=== PATIENT | male | born 1950 | race Caucasian/White ===

== ENCOUNTER 2019-12-04 09:41 | Outpatient (CLI) | payer MEDICAID, SELFPAY ==
[2019-12-04 10:25] LABS: Basophils % 0.5 %; Eosinophils # 0.2 10^3/uL (0.0-0.8); Eosinophils % 2.7 %; Hematocrit 52.1 % (42.0-52.0); Lymphocytes % 25.7 %; Mean Corpuscular HGB Conc 32.6 g/dL (30.0-36.0); Mean Corpuscular Volume 94.9 fL (80-94); Mean Platelet Volume 9.2 fL (7.4-10.4); Monocytes # 0.7 10^3/uL (0.2-0.9); Monocytes % 9.2 %; Neutrophils # 4.8 10^3/uL (1.8-7.7); Neutrophils % 61.5 %; Nucleated Red Blood Cells % 0 %; Platelet Count 244 10^3/cmm (130-400); Red Blood Count 5.49 10^6/uL (4.1-5.3); Red Cell Distribution Width 12.2 % (12.1-15.1); White Blood Count 7.8 10^3/uL (4.0-10.0)
[2019-12-04 10:39] LABS: Albumin Level 4.5 g/dL (3.5-5.2); Anion Gap 15.6 (5-19); Blood Urea Nitrogen 16 mg/dL (8-23); Calcium 10.2 mg/Dl (8.8-10.2); Carbon Dioxide 27 mmol/L (22-29); Chloride 101 mmol/L (98-107); Glucose 112 mg/dL (74-106); Phosphorus 3.4 mg/dL (2.5-4.5); Potassium 4.6 mmol/L (3.5-5.1); Sodium 139 mmol/L (136-145)
[2019-12-04 13:35] LABS: 25 Hydroxy Vitamin D 53 ng/mL (30-100)
== END 2019-12-04 09:42 | disposition home or self-care (01) ==
LOC: LAB 09:46
PROVIDERS: Family Provider Family Medicine; PCP Family Medicine; Visit Provider Internal Medicine Nephrology
DX: N18.3 Chronic kidney disease, stage 3 (moderate) (principal)
CPT/HCPCS: 36415; 80069; 82306; 85025

== ENCOUNTER → 2019-12-24 09:30 | Outpatient (BNVA) | payer MEDICAID, SELFPAY | PROVIDERS: Family Provider Family Medicine; PCP Family Medicine; Visit Provider Nurse Practitioner Psychiatric/Mental Health | DX: F31.31 Bipolar disorder, current episode depressed, mild (principal); F43.12 Post-traumatic stress disorder, chronic; F10.21 Alcohol dependence, in remission; F12.21 Cannabis dependence, in remission; F17.210 Nicotine dependence, cigarettes, uncomplicated | CPT/HCPCS: 99213 ==

== ENCOUNTER → 2020-04-14 08:10 | Outpatient (BNVA) | payer MEDICAID, SELFPAY | PROVIDERS: Family Provider Family Medicine; PCP Family Medicine; Visit Provider Nurse Practitioner Psychiatric/Mental Health | DX: F31.31 Bipolar disorder, current episode depressed, mild (principal); F43.12 Post-traumatic stress disorder, chronic; F10.21 Alcohol dependence, in remission; F17.210 Nicotine dependence, cigarettes, uncomplicated; F12.21 Cannabis dependence, in remission | CPT/HCPCS: 99213 ==

== ENCOUNTER → 2020-08-04 08:26 | Outpatient (BNVA) | payer MEDICAID, SELFPAY | PROVIDERS: Family Provider Family Medicine; PCP Family Medicine; Visit Provider Nurse Practitioner Psychiatric/Mental Health | DX: F31.31 Bipolar disorder, current episode depressed, mild (principal); F43.12 Post-traumatic stress disorder, chronic; F10.21 Alcohol dependence, in remission; F17.210 Nicotine dependence, cigarettes, uncomplicated; F12.21 Cannabis dependence, in remission; F41.1 Generalized anxiety disorder | CPT/HCPCS: 99214 ==

== ENCOUNTER → 2020-08-05 08:35 | Outpatient (BNVA) | payer MEDICAID, SELFPAY | PROVIDERS: Family Provider Family Medicine; PCP Family Medicine; Visit Provider Nurse Practitioner Psychiatric/Mental Health | DX: Z79.899 Other long term (current) drug therapy (principal) | CPT/HCPCS: 80053; 80061; 83036; 85025 ==

== ENCOUNTER 2020-09-16 11:38 | Outpatient (CLI) | payer MEDICAID, SELFPAY ==
[2020-09-16 12:05] LABS: Basophils # 0.1 10^3/uL (0.0-0.1); Basophils % 0.7 %; Eosinophils # 0.3 10^3/uL (0.0-0.8); Eosinophils % 2.9 %; Hematocrit 52.4 % (42.0-52.0); Hemoglobin 17.4 g/dL (11.7-16.6); Lymphocytes # 2.4 10^3/uL (0.8-4.8); Mean Corpuscular HGB Conc 33.2 g/dL (30.0-36.0); Mean Corpuscular Volume 93.4 fL (80-94); Mean Platelet Volume 9.4 fL (7.4-10.4); Monocytes # 0.8 10^3/uL (0.2-0.9); Monocytes % 8.9 %; Neutrophils # 5.08 10^3/uL (1.8-7.7); Neutrophils % 58.9 %; Nucleated Red Blood Cells % 0 %; Platelet Count 249 10^3/cmm (130-400); Red Blood Count 5.61 10^6/uL (4.1-5.3); Red Cell Distribution Width 12.7 % (12.1-15.1); White Blood Count 8.6 10^3/uL (4.0-10.0)
[2020-09-16 12:30] LABS: Urine Creatinine 125 mg/dL (39-259); Urine Protein Random 6 mg/dL
[2020-09-16 12:34] LABS: UPRO/UCREAT Ratio 0.05 mg/mg CR
== END 2020-09-16 11:39 | disposition home or self-care (01) ==
LOC: LAB 11:40
PROVIDERS: PCP Family Medicine; Visit Provider Internal Medicine Nephrology
DX: N18.30 Chronic kidney disease, stage 3 unspecified (principal)
CPT/HCPCS: 36415; 82570; 84156; 85025

== ENCOUNTER → 2020-10-06 07:46 | Outpatient (BNVA) | payer MEDICAID, SELFPAY | PROVIDERS: PCP Family Medicine; Visit Provider Nurse Practitioner Psychiatric/Mental Health | DX: F31.31 Bipolar disorder, current episode depressed, mild (principal); F43.12 Post-traumatic stress disorder, chronic; F17.210 Nicotine dependence, cigarettes, uncomplicated; F10.21 Alcohol dependence, in remission; F12.21 Cannabis dependence, in remission | CPT/HCPCS: 99213 ==

== ENCOUNTER → 2021-01-03 09:31 | Outpatient (BNVA) | payer MEDICAID, SELFPAY | PROVIDERS: PCP Family Medicine; Visit Provider Nurse Practitioner Psychiatric/Mental Health | DX: F31.31 Bipolar disorder, current episode depressed, mild (principal); F43.12 Post-traumatic stress disorder, chronic; F10.21 Alcohol dependence, in remission; F17.210 Nicotine dependence, cigarettes, uncomplicated; F12.21 Cannabis dependence, in remission | CPT/HCPCS: 99213 ==

== ENCOUNTER → 2021-03-28 08:39 | Outpatient (BNVA) | payer MEDICAID, SELFPAY | PROVIDERS: PCP Family Medicine; Visit Provider Nurse Practitioner Psychiatric/Mental Health | DX: F31.31 Bipolar disorder, current episode depressed, mild (principal); F43.12 Post-traumatic stress disorder, chronic; F17.210 Nicotine dependence, cigarettes, uncomplicated; F10.21 Alcohol dependence, in remission; F12.21 Cannabis dependence, in remission | CPT/HCPCS: 99213 ==

== ENCOUNTER → 2021-06-24 07:12 | Outpatient (BNVA) | payer MEDICAID, SELFPAY | PROVIDERS: PCP Family Medicine; Visit Provider Nurse Practitioner Psychiatric/Mental Health | DX: F31.31 Bipolar disorder, current episode depressed, mild (principal); F43.12 Post-traumatic stress disorder, chronic; F17.210 Nicotine dependence, cigarettes, uncomplicated; F10.21 Alcohol dependence, in remission; F12.21 Cannabis dependence, in remission | CPT/HCPCS: 99213 ==

== ENCOUNTER → 2021-09-15 09:11 | Outpatient (BNVA) | payer MEDICAID, SELFPAY | PROVIDERS: PCP Family Medicine; Visit Provider Nurse Practitioner Psychiatric/Mental Health | DX: F31.31 Bipolar disorder, current episode depressed, mild (principal); F43.12 Post-traumatic stress disorder, chronic; F17.210 Nicotine dependence, cigarettes, uncomplicated; F10.21 Alcohol dependence, in remission; F12.21 Cannabis dependence, in remission | CPT/HCPCS: 99214 ==

== ENCOUNTER → 2021-12-08 07:44 | Outpatient (BNVA) | payer MEDICAID, SELFPAY | PROVIDERS: PCP Family Medicine; Visit Provider Nurse Practitioner Psychiatric/Mental Health | DX: F43.12 Post-traumatic stress disorder, chronic (principal); F31.31 Bipolar disorder, current episode depressed, mild; F17.210 Nicotine dependence, cigarettes, uncomplicated; F10.21 Alcohol dependence, in remission; F12.21 Cannabis dependence, in remission; Z79.899 Other long term (current) drug therapy | CPT/HCPCS: 99214 ==

== ENCOUNTER → 2022-02-01 11:45 | Outpatient (BNVA) | payer MEDICAID, SELFPAY | PROVIDERS: PCP Family Medicine; Visit Provider Nurse Practitioner Psychiatric/Mental Health | DX: Z79.899 Other long term (current) drug therapy (principal) | CPT/HCPCS: 80053; 80061; 83036; 85025 ==

== ENCOUNTER → 2022-02-02 07:28 | Outpatient (BNVA) | payer MEDICAID, SELFPAY | PROVIDERS: PCP Family Medicine; Visit Provider Nurse Practitioner Psychiatric/Mental Health | DX: F31.31 Bipolar disorder, current episode depressed, mild (principal); F43.12 Post-traumatic stress disorder, chronic; F17.210 Nicotine dependence, cigarettes, uncomplicated; F10.21 Alcohol dependence, in remission; F12.21 Cannabis dependence, in remission; Z79.899 Other long term (current) drug therapy | CPT/HCPCS: 99214 ==

== ENCOUNTER 2022-05-23 06:34 | Outpatient (CLI) | payer MEDICAID, SELFPAY ==
--- NOTE | 2022-05-23 07:19 | CT_ITS ---
WS: [id number] LDCT LUNG CANCER SCREENING HISTORY: NICOTINE Dependence, cigarettes TECHNIQUE: Axial imaging performed from the apices to 1 cm below the costophrenic angles. Coronal and sagittal reformats are submitted with axial MIP series. All CT scans at [facility] use at least one of these dose optimization techniques: automated exposure control; mA and/or kV adjustment per patient size (includes targeted exams where dose is matched to clinical indication); or iterativ e reconstruction. DLP: 66.72 mGy.cm DIvol: Mean CTDIvol: 1.60 (mGy) COMPARISON: 08/01/2019 Diagnostic quality: Satisfactory Lung Nodules: No nodules or masses are identified. No endobronchial lesions. Lungs: Chronic emphysematous changes. Diffuse mild to moderate interstitial thickening. There is mild central bronchial wall thickening. Areas of atelectasis in the lingula and RIGHT middle lobe may be chronic. Heart: Normal size heart. Coronary artery calcifications are mild. Other findings: Normal-sized thoracic aorta. Normal size pulmonary artery. Prior cholecystectomy. Mil d LEFT adrenal hyperplasia. Hyperplasia LEFT adrenal gland are incompletely visualized but similar fi ndings were noted on a prior CT from 2019. Remote 1rib fractures. CT/CT lung screening [id number] IMPRESSION: LUNG-RADS: 1-Negative FOLLOW UP: 12 Month: Continue annual screening with LDCT OTHER FINDINGS (S MODIFIER): None.
== END 2022-05-23 06:35 | disposition home or self-care (01) ==
LOC: RAD 06:36
PROVIDERS: PCP Family Medicine; Visit Provider Family Medicine
DX: Z12.2 Encounter for screening for malignant neoplasm of respiratory organs (principal); F17.210 Nicotine dependence, cigarettes, uncomplicated
CPT/HCPCS: 71271

== ENCOUNTER → 2023-05-11 13:44 | Outpatient (BNVA) | payer MEDICAID, SELFPAY | PROVIDERS: PCP Family Medicine; Visit Provider Nurse Practitioner Psychiatric/Mental Health | DX: Z03.89 Encounter for observation for other suspected diseases and conditions ruled out (principal); F31.31 Bipolar disorder, current episode depressed, mild; F43.12 Post-traumatic stress disorder, chronic; Z79.899 Other long term (current) drug therapy | CPT/HCPCS: 80053; 80061; 80307; 81001; 83036 ==

== ENCOUNTER 2023-06-24 16:17 | Emergency (ER) | payer MEDICAID, SELFPAY ==
[2023-06-24 16:22] VITALS: BMI 40.6
--- NOTE | 2023-06-24 16:27 | ED_ITS ---
Documented by User: Burke Reilly MD 07/07/23 15:45 HPI - Altered Mental Status General: Chief Complaint: Altered Mental Status Stated Complaint: etoh, HI Time Seen by Provider: 06/24/23 16:27 Limitations: altered mental status History of Present Illness: Mr. Combs is a 73-year-old gentleman with likely psychiatric history presenting to the emergency department for various concerns. He endorses alcohol and appears quite clinically intoxicated consistent with alcohol which severely limits history. EMS was called for altered mental status. Also reports 2 days of strokelike symptoms and homicidal ideation. Patient mildly hypoglycemic initially however improved with EMS treatments. Patient is not particularly cooperative and not pleasant at this time. Review of Systems General: Reports: ROS unobtainable due to mental status PFSH ED PFSH: Medical History Alcohol use disorder, moderate, in sustained remission Bipolar 1 disorder, depressed, mild Cannabis dependence in remission Chronic post-traumatic stress disorder Heavy cigarette smoker Psychiatric care Family History (Updated 06/25/23 @ 13:47 by Juan Ingram MD) Other Cancer Social History (Updated 06/25/23 @ 13:47 by Juan Ingram MD) Smoking and tobacco status: current every day smoker Alcohol intake: current Physical Exam Const: COMMON NORMALS: alert GENERAL APPEARANCE: well developed and disheveled; not cooperative HENMT: COMMON NORMALS: normocephalic and atraumatic HEAD & SCALP: normocephalic and atraumatic THROAT: posterior oropharynx normal Eye: COMMON NORMALS: conjunctivae normal CONJUNCTIVA: Yes conjunctivae normal SCLERA: sclerae normal Neck/C-Spine: COMMON NORMALS: supple GENERAL: Yes trachea midline Resp: COMMON NORMALS: clear to auscultation bilaterally EFFORT & INSPECTION: Yes able to speak in complete sentences AUSCULTATION: clear to auscultation bilaterally Cardio: COMMON NORMALS: regular rate and regular rhythm RATE: regular rate RHYTHM: regular rhythm GI: COMMON NORMALS: Soft to palpation PALPATION: Yes Soft to palpation and No Tenderness to palpation present (GI) Extremity: GENERAL: Yes normal exam except as noted and No edema Neuro: COMMON NORMALS: moves all extremities SENSORIUM/ORIENTATION: Yes alert, Yes Orientation impaired and Yes fluctuating sensorium Psych: THOUGHT CONTENT: Yes Homicidality present Course Vital Signs: Vital signs: Vital Signs Temperature 98.2 F 06/24/23 16:34 Pulse Rate 98 06/25/23 15:02 Respiratory Rate 16 06/25/23 08:00 Blood Pressure 151/97 06/25/23 12:00 Pulse Oximetry 93 06/25/23 15:02 Oxygen Delivery Me thod Room Air 06/25/23 12:00 MDM - Altered Mental Status Medical Decision Making 73-year-old gentleman with reported alcohol abuse presenting for homicidal ideation. Patient is quite clinically intoxicated on initial exam and not particularly cooperative. Patient requires evaluation for further delineation of current state and hence medication to facilitate this was ordered. EKG demonstrates sinus rhythm with left axis deviation, normal intervals, nonspecific ST segment abnormalities. No STEMI. Labs with no leukocytosis, normal hemoglobin and platelet count. Metabolic panel with likely results of alcohol intoxication. No acute electrolyte derangement. Patient does have elevation in transaminases and T. bili. These are also likely secondary to alcohol abuse however further etiologies are considered. No UTI. Toxic ingestions are negative with exception of ethyl alcohol elevation. UDS negative. Hepatitis panel negative. CT head negative for evidence of acute or recent infarct, no hemorrhage or mass. Chest x-ray with no lobar consolidation or pneumothorax. Gallbladder ultrasound limited by body habitus. On reassessment with mild improvement in mental status patient does not have right upper quadrant tenderness palpation. Negative Cox sign. Patient given banana bag in addition to medications. Despite improving clinical intoxication he continues to verbalize threats to staff and his . Therefore he is placed on a 96-hour hold. He is still quite clinically intoxicated as well as clinically intoxicated even being generous for metabolic rate. Handed off to overnight ED physician Dr. Mittal pending serial reassessment and likely psychiatry consult versus placement when clinically sober. Medical Records I reviewed the patient's medical records. Lab Data I reviewed the patient's lab results. 06/24/23 16:35 06/25/23 13:23 Radiology Impressions Chest X-Ray 06/24/23 16:31 IMPRESSION: 1. Basilar atelectasis 2. Possible small pleural effusions. Gallbladder Ultrasound 06/24/23 17:33 IMPRESSION: 1. Limited exam secondary to patient body habitus 2. Fatty liver Head CT 06/24/23 17:45 IMPRESSION: No acute intracranial finding. No significant change from 08/01/2019 Laboratory Results WBC 6.8 10^3/uL (4.0-10.0) 06/24/23 16:35 RBC 4.80 10^6/uL (4.1-5.3) 06/24/23 16:35 Hgb 16.0 g/dL (11.7-16.6) 06/24/23 16:35 Hct 45.5 % (42.0-52.0) 06/24/23 16:35 MCV 94.8 fl (80-94) H 06/24/23 16:35 MCH 33.3 pg (28.0-34.0) 06/24/23 16:35 MCHC 35.2 g/dL (30.0-36.0) 06/24/23 16:35 RDW 16.3 % (12.1-15.1) H 06/24/23 16:35 Plt Count 220 10^3/cmm (130-400) 06/24/23 16:35 MPV 9.6 fL (7.4-10.4) 06/24/23 16:35 Neut % (Auto) 58.1 % 06/24/23 16:35 Lymph % (Auto) 28.4 % 06/24/23 16:35 Nobles % (Auto) 10.2 % 06/24/23 16:35 Eos % (Auto) 1.8 % 06/24/23 16:35 Baso % (Auto) 0.6 % 06/24/23 16:35 Neut # (Auto) 3.92 10^3/uL (1.8-7.7) 06/24/23 16:35 Lymph # (Auto) 1.9 10^3/uL (0.8-4.8) 06/24/23 16:35 Nobles # (Auto) 0.7 10^3/uL (0.2-0.9) 06/24/23 16:35 Eos # (Auto) 0.1 10^3/uL (0.0-0.8) 06/24/23 16:35 Baso # (Auto) 0.0 10^3/uL (0.0-0.1) 06/24/23 16:35 Nucleated RBC % (auto) 0.3 % 06/24/23 16:35 Nucleated RBCs # 0.0 /100WBC 06/24/23 16:35 Sodium 137 mmol/L (136-145) 06/25/23 13:23 Potassium 3.9 mmol/L (3.5-5.1) 06/25/23 13:23 Chloride 99 mmol/L (98-107) 06/25/23 13:23 Carbon Dioxide 17 mmol/L (22-29) L 06/25/23 13:23 Anion Gap 24.9 (5-19) H 06/25/23 13:23 BUN 12 mg/dL (8-23) 06/25/23 13:23 Creatinine 1.2 mg/dL (0.7-1.2) 06/25/23 13:23 GFR Calculation Not Reportable 06/25/23 13:23 Glucose 107 mg/dL (65-115) 06/25/23 13:23 Calculated Osmolality 284 mOsm/kg (285-295) L 06/25/23 13:23 Calcium 7.8 mg/dL (8.5-10.5) L 06/25/23 13:23 Total Bilirubin 2.9 mg/dL (0.15-1.2) H 06/25/23 13:23 AST 234 U/L (0-40) H 06/25/23 13:23 ALT 147 U/L (0-41) H 06/25/23 13:23 Alkaline Phosphatase 123 U/L (40-130) 06/25/23 13:23 Total Protein 5.7 g/dL (6.6-8.7) L 06/25/23 13:23 Albumin 3.2 g/dL (3.5-5.2) L 06/25/23 13:23 Globulin 2.5 g/dL (1.3-4.6) 06/25/23 13:23 Lipase 84 U/L (13-60) H 06/24/23 16:35 TSH 0.95 uIU/mL (0.27-4.20) 06/24/23 16:35 Urine Color Yellow (Yellow) 06/24/23 21:15 Urine Appearance Clear (CLEAR) 06/24/23 21:15 Urine pH 5 (5-7) 06/24/23 21:15 Ur Specific [place] 1.020 (1.005-1.030) 06/24/23 21:15 Urine Protein Neg (Negative) 06/24/23 21:15 Urine Glucose (UA) Norm (Normal) 06/24/23 21:15 Urine Ketones 2+ (Negative) H 06/24/23 21:15 Urine Blood Neg (Negative) 06/24/23 21:15 Urine Nitrate Negative (Negative) 06/24/23 21:15 Urine Bilirubin Neg (Negative) 06/24/23 21:15 Urine Urobilinogen 1 mg/dL (Negative) H 06/24/23 21:15 Ur Leukocyte Esterase Negative (Negative) 06/24/23 21:15 Salicylates < 0.3 mg/dL (3-10) L 06/24/23 16:35 Urine Opiates Screen Negative ng/mL (Negative) 06/24/23 21:15 Acetaminophen < 5.0 ug/mL (10-30) L 06/24/23 16:35 Ur Barbiturates Screen Negative ng/mL (Negative) 06/24/23 21:15 Ur Phencyclidine Scrn Negative ng/mL (Negative) 06/24/23 21:15 Ur Amphetamines Screen Negative ng/mL (Negative) 06/24/23 21:15 U Benzodiazepines Scrn Negative ng/mL (Negative) 06/24/23 21:15 Urine Cocaine Screen Negative ng/mL (Negative) 06/24/23 21:15 U Marijuana (THC) Screen Negative ng/mL (Negative) 06/24/23 21:15 Ethyl Alcohol 67 mg/dL (0-10) H 06/25/23 05:27 Hepatitis A IgM Ab Non-reactive (Nonreactive) 06/24/23 16:35 Hep Bs Antigen Non-reactive (Nonreactive) 06/24/23 16:35 Hep B Core IgM Ab Non-reactive (Nonreactive) 06/24/23 16:35 Hepatitis C Antibody Non-reactive (Nonreactive) 06/24/23 16:35 Discharge Plan Discharge Patient Disposition: Home Clinical Impression: Altered mental status, Alcoholic intoxication Condition: Stable Prescriptions: No Action trazodone 50 mg tablet 50 mg PO DIRECTED PRN (Reason: sleep) Qty: 30 3RF Rx Instructions: May take one tablet 30-60 min prior to bedtime as needed for sleep quetiapine [Seroquel] 50 mg tablet 75 mg PO BEDTIME Qty: 45 3RF Rx Instructions: Take one and half tablet at bedtime, total dose 75 mg bupropion HCl [Wellbutrin SR] 200 mg tablet sustained-release 12 hr 200 mg PO QAM Qty: 30 3RF Rx Instructions: Take one tablet every morning metoprolol tartrate 50 mg tablet 50 mg PO BID clonazepam [Klonopin] 0.5 mg tablet 0.5 mg PO BID Qty: 60 1RF Rx Instructions: Take one tablet in morning and afternoon quetiapine 100 mg tablet 100 mg PO BEDTIME trazodone 300 mg tablet See Rx Instructions .ROUTE .COMPLEX Rx Instructions: TAKE 1 TABLET BY MOUTH 30-60 MINUTES PRIOR TO BEDTIME NEEDED. Klonopin 1 mg tablet 1 mg PO BEDTIME Rx Instructions: Take one tablet at bedtime Discharge Orders: Discharge ED (Routine); Ordered 06/25/23 Ordered By: Juan Ingram Referrals: Marlena Nolan MD [Primary Care Provider] - 1-3 days Discharge Diet: Regular Discharge Activity: Increase activity as tolerated Patient Instructions: Alcohol Intoxication (ED), Altered Mental Status (ED), Opioid Safety, Pain Management Activity Restrictions/Additional Instructions: Encourage fluids Avoid alcohol and tobacco Follow-up with your primary care provider this week Sign Out Sign Out Data: Patient Sign Out occurred on 06/25/23 at 06:37. Patient's care was discussed, and care was transferred from to Ahsan Mosqueda DO. Coding Level of Care Code ED Bottling Room Worker for Chg Fwd Documented by User: Fransisco Mittal DO 06/25/23 06:07 HPI - Altered Mental Status General: Chief Complaint: Altered Mental Status Stated Complaint: etoh, HI Time Seen by Provider: 06/24/23 16:27 PFSH ED PFSH: Medical History Alcohol use disorder, moderate, in sustained remission Bipolar 1 disorder, depressed, mild Cannabis dependence in remission Chronic post-traumatic stress disorder Heavy cigarette smoker Psychiatric care Family History (Updated 06/25/23 @ 13:47 by Juan Ingram MD) Other Cancer Social History (Updated 06/25/23 @ 13:47 by Juan Ingram MD) Smoking and tobacco status: current every day smoker Alcohol intake: current Course 2 Vital Signs: Vital signs: Vital Signs Temperature 98.2 F 06/24/23 16:34 Pulse Rate 98 06/25/23 15:02 Respiratory Rate 16 06/25/23 08:00 Blood Pressure 151/97 06/25/23 12:00 Pulse Oximetry 93 06/25/23 15:02 Oxygen Delivery Me thod Room Air 06/25/23 12:00 MDM - Altered Mental Status Medical Decision Making 73-year-old gentleman with reported alcohol abuse presenting for homicidal ideation. Patient is quite clinically intoxicated on initial exam and not particularly cooperative. Patient requires evaluation for further delineation of current state and hence medication to facilitate this was ordered. EKG demonstrates sinus rhythm with left axis deviation, normal intervals, nonspecific ST segment abnormalities. No STEMI. Labs with no leukocytosis, normal hemoglobin and platelet count. Metabolic panel with likely results of alcohol intoxication. No acute electrolyte derangement. Patient does have elevation in transaminases and T. bili. These are also likely secondary to alcohol abuse however further etiologies are considered. No UTI. Toxic ingestions are negative with exception of ethyl alcohol elevation. UDS negative. Hepatitis panel negative. CT head negative for evidence of acute or recent infarct, no hemorrhage or mass. Chest x-ray with no lobar consolidation or pneumothorax. Gallbladder ultrasound limited by body habitus. On reassessment with mild improvement in mental status patient does not have right upper quadrant tenderness palpation. Negative Cox sign. Patient given banana bag in addition to medications. Despite improving clinical intoxication he continues to verbalize threats to staff and his . Therefore he is placed on a 96-hour hold. He is still quite clinically intoxicated as well as clinically intoxicated even being generous for metabolic rate. Handed off to overnight ED physician Dr. Mittal pending serial reassessment and likely psychiatry consult versus placement when clinically sober. 06/25/2023 @ 0602: Received in checkout from the previous physician at shift change. This patient is now awake. He states that he does not really remember the previous day. He in fact does not wish to kill his at this point. Repeat alcohol level and repeat CMP are pending. Will await results, and likely have psychiatry evaluate later this morning. Checked out at shift change. Lab Data 06/24/23 16:35 06/25/23 13:23 Radiology Impressions Chest X-Ray 06/24/23 16:31 IMPRESSION: 1. Basilar atelectasis 2. Possible small pleural effusions. Gallbladder Ultrasound 06/24/23 17:33 IMPRESSION: 1. Limited exam secondary to patient body habitus 2. Fatty liver Head CT 06/24/23 17:45 IMPRESSION: No acute intracranial finding. No significant change from 08/01/2019 Laboratory Results WBC 6.8 10^3/uL (4.0-10.0) 06/24/23 16:35 RBC 4.80 10^6/uL (4.1-5.3) 06/24/23 16:35 Hgb 16.0 g/dL (11.7-16.6) 06/24/23 16:35 Hct 45.5 % (42.0-52.0) 06/24/23 16:35 MCV 94.8 fl (80-94) H 06/24/23 16:35 MCH 33.3 pg (28.0-34.0) 06/24/23 16:35 MCHC 35.2 g/dL (30.0-36.0) 06/24/23 16:35 RDW 16.3 % (12.1-15.1) H 06/24/23 16:35 Plt Count 220 10^3/cmm (130-400) 06/24/23 16:35 MPV 9.6 fL (7.4-10.4) 06/24/23 16:35 Neut % (Auto) 58.1 % 06/24/23 16:35 Lymph % (Auto) 28.4 % 06/24/23 16:35 Nobles % (Auto) 10.2 % 06/24/23 16:35 Eos % (Auto) 1.8 % 06/24/23 16:35 Baso % (Auto) 0.6 % 06/24/23 16:35 Neut # (Auto) 3.92 10^3/uL (1.8-7.7) 06/24/23 16:35 Lymph # (Auto) 1.9 10^3/uL (0.8-4.8) 06/24/23 16:35 Nobles # (Auto) 0.7 10^3/uL (0.2-0.9) 06/24/23 16:35 Eos # (Auto) 0.1 10^3/uL (0.0-0.8) 06/24/23 16:35 Baso # (Auto) 0.0 10^3/uL (0.0-0.1) 06/24/23 16:35 Nucleated RBC % (auto) 0.3 % 06/24/23 16:35 Nucleated RBCs # 0.0 /100WBC 06/24/23 16:35 Sodium 137 mmol/L (136-145) 06/25/23 13:23 Potassium 3.9 mmol/L (3.5-5.1) 06/25/23 13:23 Chloride 99 mmol/L (98-107) 06/25/23 13:23 Carbon Dioxide 17 mmol/L (22-29) L 06/25/23 13:23 Anion Gap 24.9 (5-19) H 06/25/23 13:23 BUN 12 mg/dL (8-23) 06/25/23 13:23 Creatinine 1.2 mg/dL (0.7-1.2) 06/25/23 13:23 GFR Calculation Not Reportable 06/25/23 13:23 Glucose 107 mg/dL (65-115) 06/25/23 13:23 Calculated Osmolality 284 mOsm/kg (285-295) L 06/25/23 13:23 Calcium 7.8 mg/dL (8.5-10.5) L 06/25/23 13:23 Total Bilirubin 2.9 mg/dL (0.15-1.2) H 06/25/23 13:23 AST 234 U/L (0-40) H 06/25/23 13:23 ALT 147 U/L (0-41) H 06/25/23 13:23 Alkaline Phosphatase 123 U/L (40-130) 06/25/23 13:23 Total Protein 5.7 g/dL (6.6-8.7) L 06/25/23 13:23 Albumin 3.2 g/dL (3.5-5.2) L 06/25/23 13:23 Globulin 2.5 g/dL (1.3-4.6) 06/25/23 13:23 Lipase 84 U/L (13-60) H 06/24/23 16:35 TSH 0.95 uIU/mL (0.27-4.20) 06/24/23 16:35 Urine Color Yellow (Yellow) 06/24/23 21:15 Urine Appearance Clear (CLEAR) 06/24/23 21:15 Urine pH 5 (5-7) 06/24/23 21:15 Ur Specific [place] 1.020 (1.005-1.030) 06/24/23 21:15 Urine Protein Neg (Negative) 06/24/23 21:15 Urine Glucose (UA) Norm (Normal) 06/24/23 21:15 Urine Ketones 2+ (Negative) H 06/24/23 21:15 Urine Blood Neg (Negative) 06/24/23 21:15 Urine Nitrate Negative (Negative) 06/24/23 21:15 Urine Bilirubin Neg (Negative) 06/24/23 21:15 Urine Urobilinogen 1 mg/dL (Negative) H 06/24/23 21:15 Ur Leukocyte Esterase Negative (Negative) 06/24/23 21:15 Salicylates < 0.3 mg/dL (3-10) L 06/24/23 16:35 Urine Opiates Screen Negative ng/mL (Negative) 06/24/23 21:15 Acetaminophen < 5.0 ug/mL (10-30) L 06/24/23 16:35 Ur Barbiturates Screen Negative ng/mL (Negative) 06/24/23 21:15 Ur Phencyclidine Scrn Negative ng/mL (Negative) 06/24/23 21:15 Ur Amphetamines Screen Negative ng/mL (Negative) 06/24/23 21:15 U Benzodiazepines Scrn Negative ng/mL (Negative) 06/24/23 21:15 Urine Cocaine Screen Negative ng/mL (Negative) 06/24/23 21:15 U Marijuana (THC) Screen Negative ng/mL (Negative) 06/24/23 21:15 Ethyl Alcohol 67 mg/dL (0-10) H 06/25/23 05:27 Hepatitis A IgM Ab Non-reactive (Nonreactive) 06/24/23 16:35 Hep Bs Antigen Non-reactive (Nonreactive) 06/24/23 16:35 Hep B Core IgM Ab Non-reactive (Nonreactive) 06/24/23 16:35 Hepatitis C Antibody Non-reactive (Nonreactive) 06/24/23 16:35 Discharge Plan Discharge Patient Disposition: Home Clinical Impression: Altered mental status, Alcoholic intoxication Condition: Stable Prescriptions: No Action trazodone 50 mg tablet 50 mg PO DIRECTED PRN (Reason: sleep) Qty: 30 3RF Rx Instructions: May take one tablet 30-60 min prior to bedtime as needed for sleep quetiapine [Seroquel] 50 mg tablet 75 mg PO BEDTIME Qty: 45 3RF Rx Instructions: Take one and half tablet at bedtime, total dose 75 mg bupropion HCl [Wellbutrin SR] 200 mg tablet sustained-release 12 hr 200 mg PO QAM Qty: 30 3RF Rx Instructions: Take one tablet every morning metoprolol tartrate 50 mg tablet 50 mg PO BID clonazepam [Klonopin] 0.5 mg tablet 0.5 mg PO BID Qty: 60 1RF Rx Instructions: Take one tablet in morning and afternoon quetiapine 100 mg tablet 100 mg PO BEDTIME trazodone 300 mg tablet See Rx Instructions .ROUTE .COMPLEX Rx Instructions: TAKE 1 TABLET BY MOUTH 30-60 MINUTES PRIOR TO BEDTIME NEEDED. Klonopin 1 mg tablet 1 mg PO BEDTIME Rx Instructions: Take one tablet at bedtime Discharge Orders: Discharge ED (Routine); Ordered 06/25/23 Ordered By: Juan Ingram Referrals: Marlena Nolan MD [Primary Care Provider] - 1-3 days Discharge Diet: Regular Discharge Activity: Increase activity as tolerated Patient Instructions: Alcohol Intoxication (ED), Altered Mental Status (ED), Opioid Safety, Pain Management Activity Restrictions/Additional Instructions: Encourage fluids Avoid alcohol and tobacco Follow-up with your primary care provider this week Sign Out Sign Out Data: Patient Sign Out occurred on 06/25/23 at 06:37. Patient's care was discussed, and care was transferred from to Ahsan Mosqueda DO. Coding Level of Care Code ED Bottling Room Worker for Alec Carranza Documented by User: Ahsan Mosqueda DO 06/26/23 07:05 HPI - Altered Mental Status General: Chief Complaint: Altered Mental Status Stated Complaint: etoh, HI Time Seen by Provider: 06/24/23 16:27 PFSH ED PFSH: Medical History Alcohol use disorder, moderate, in sustained remission Bipolar 1 disorder, depressed, mild Cannabis dependence in remission Chronic post-traumatic stress disorder Heavy cigarette smoker Psychiatric care Family History (Updated 06/25/23 @ 13:47 by Juan Ingram MD) Other Cancer Social History (Updated 06/25/23 @ 13:47 by Juan Ingram MD) Smoking and tobacco status: current every day smoker Alcohol intake: current Course Vital Signs: Vital signs: Vital Signs Temperature 98.2 F 06/24/23 16:34 Pulse Rate 98 06/25/23 15:02 Respiratory Rate 16 06/25/23 08:00 Blood Pressure 151/97 06/25/23 12:00 Pulse Oximetry 93 06/25/23 15:02 Oxygen Delivery Me thod Room Air 06/25/23 12:00 MDM - Altered Mental Status Medical Decision Making 73-year-old gentleman with reported alcohol abuse presenting for homicidal ideation. Patient is quite clinically intoxicated on initial exam and not particularly cooperative. Patient requires evaluation for further delineation of current state and hence medication to facilitate this was ordered. EKG demonstrates sinus rhythm with left axis deviation, normal intervals, nonspecific ST segment abnormalities. No STEMI. Labs with no leukocytosis, normal hemoglobin and platelet count. Metabolic panel with likely results of alcohol intoxication. No acute electrolyte derangement. Patient does have elevation in transaminases and T. bili. These are also likely secondary to alcohol abuse however further etiologies are considered. No UTI. Toxic ingestions are negative with exception of ethyl alcohol elevation. UDS negative. Hepatitis panel negative. CT head negative for evidence of acute or recent infarct, no hemorrhage or mass. Chest x-ray with no lobar consolidation or pneumothorax. Gallbladder ultrasound limited by body habitus. On reassessment with mild improvement in mental status patient does not have right upper quadrant tenderness palpation. Negative Cox sign. Patient given banana bag in addition to medications. Despite improving clinical intoxication he continues to verbalize threats to staff and his . Therefore he is placed on a 96-hour hold. He is still quite clinically intoxicated as well as clinically intoxicated even being generous for metabolic rate. Handed off to overnight ED physician Dr. Mittal pending serial reassessment and likely psychiatry consult versus placement when clinically sober. 06/25/2023 @ 0602: Received in checkout from the previous physician at shift change. This patient is now awake. He states that he does not really remember the previous day. He in fact does not wish to kill his at this point. Repeat alcohol level and repeat CMP are pending. Will await results, and likely have psychiatry evaluate later this morning. Checked out at shift change. 06/25/2023 @ 0630: Care assumed from Dr. Mittal at change of shift. Reviewed the chart. Patient has elevated anion gap he was given another liter of fluids and the time to BMP was drawn a little over an hour later there is actually slight increases in anion gap. He is now sober blood alcohol is less than 80. Patient does not recall threatening his or any of the events from yesterday he is awake and alert he denies any suicidal or homicidal ideation. Several psychiatry facilities have declined to take him on transfer. Since he is now retracting his statements and is statements only seem to have been associated with his intoxication we have asked Dr. Downing to see him again through with similar 96-hour hold. Initially was concerned about his persistent anion gap and discussed with hospitalist admitting him. He is not showing any signs of withdrawal at this point. We repeated more fluids his anion gap persisted Dr. Downing in the meantime had seen the patient and rescinded the 96-hour hold he concurred with our assessment that this was simply related to his alcohol use. At that point patient I contacted his he wanted to go home which she was helping him make arrangements to get a ride home. Dr. Bowman had seen the patient and felt that since the 96-hour was withdrawn and the patient wanted to go home we could not keep him here any longer I concur. Patient was given more fluids and encouraged to follow-up for his substance abuse issues. He will be discharged home return if he has further problems. Lab Data 06/24/23 16:35 06/25/23 13:23 Radiology Impressions Chest X-Ray 06/24/23 16:31 IMPRESSION: 1. Basilar atelectasis 2. Possible small pleural effusions. Gallbladder Ultrasound 06/24/23 17:33 IMPRESSION: 1. Limited exam secondary to patient body habitus 2. Fatty liver Head CT 06/24/23 17:45 IMPRESSION: No acute intracranial finding. No significant change from 08/01/2019 Laboratory Results WBC 6.8 10^3/uL (4.0-10.0) 06/24/23 16:35 RBC 4.80 10^6/uL (4.1-5.3) 06/24/23 16:35 Hgb 16.0 g/dL (11.7-16.6) 06/24/23 16:35 Hct 45.5 % (42.0-52.0) 06/24/23 16:35 MCV 94.8 fl (80-94) H 06/24/23 16:35 MCH 33.3 pg (28.0-34.0) 06/24/23 16:35 MCHC 35.2 g/dL (30.0-36.0) 06/24/23 16:35 RDW 16.3 % (12.1-15.1) H 06/24/23 16:35 Plt Count 220 10^3/cmm (130-400) 06/24/23 16:35 MPV 9.6 fL (7.4-10.4) 06/24/23 16:35 Neut % (Auto) 58.1 % 06/24/23 16:35 Lymph % (Auto) 28.4 % 06/24/23 16:35 Nobles % (Auto) 10.2 % 06/24/23 16:35 Eos % (Auto) 1.8 % 06/24/23 16:35 Baso % (Auto) 0.6 % 06/24/23 16:35 Neut # (Auto) 3.92 10^3/uL (1.8-7.7) 06/24/23 16:35 Lymph # (Auto) 1.9 10^3/uL (0.8-4.8) 06/24/23 16:35 [place] # (Auto) 0.7 10^3/uL (0.2-0.9) 06/24/23 16:35 Eos # (Auto) 0.1 10^3/uL (0.0-0.8) 06/24/23 16:35 Baso # (Auto) 0.0 10^3/uL (0.0-0.1) 06/24/23 16:35 Nucleated RBC % (auto) 0.3 % 06/24/23 16:35 Nucleated RBCs # 0.0 /100WBC 06/24/23 16:35 Sodium 137 mmol/L (136-145) 06/25/23 13:23 Potassium 3.9 mmol/L (3.5-5.1) 06/25/23 13:23 Chloride 99 mmol/L (98-107) 06/25/23 13:23 Carbon Dioxide 17 mmol/L (22-29) L 06/25/23 13:23 Anion Gap 24.9 (5-19) H 06/25/23 13:23 BUN 12 mg/dL (8-23) 06/25/23 13:23 Creatinine 1.2 mg/dL (0.7-1.2) 06/25/23 13:23 GFR Calculation Not Reportable 06/25/23 13:23 Glucose 107 mg/dL (65-115) 06/25/23 13:23 Calculated Osmolality 284 mOsm/kg (285-295) L 06/25/23 13:23 Calcium 7.8 mg/dL (8.5-10.5) L 06/25/23 13:23 Total Bilirubin 2.9 mg/dL (0.15-1.2) H 06/25/23 13:23 AST 234 U/L (0-40) H 06/25/23 13:23 ALT 147 U/L (0-41) H 06/25/23 13:23 Alkaline Phosphatase 123 U/L (40-130) 06/25/23 13:23 Total Protein 5.7 g/dL (6.6-8.7) L 06/25/23 13:23 Albumin 3.2 g/dL (3.5-5.2) L 06/25/23 13:23 Globulin 2.5 g/dL (1.3-4.6) 06/25/23 13:23 Lipase 84 U/L (13-60) H 06/24/23 16:35 TSH 0.95 uIU/mL (0.27-4.20) 06/24/23 16:35 Urine Color Yellow (Yellow) 06/24/23 21:15 Urine Appearance Clear (CLEAR) 06/24/23 21:15 Urine pH 5 (5-7) 06/24/23 21:15 Ur Specific [place] 1.020 (1.005-1.030) 06/24/23 21:15 Urine Protein Neg (Negative) 06/24/23 21:15 Urine Glucose (UA) Norm (Normal) 06/24/23 21:15 Urine Ketones 2+ (Negative) H 06/24/23 21:15 Urine Blood Neg (Negative) 06/24/23 21:15 Urine Nitrate Negative (Negative) 06/24/23 21:15 Urine Bilirubin Neg (Negative) 06/24/23 21:15 Urine Urobilinogen 1 mg/dL (Negative) H 06/24/23 21:15 Ur Leukocyte Esterase Negative (Negative) 06/24/23 21:15 Salicylates < 0.3 mg/dL (3-10) L 06/24/23 16:35 Urine Opiates Screen Negative ng/mL (Negative) 06/24/23 21:15 Acetaminophen < 5.0 ug/mL (10-30) L 06/24/23 16:35 Ur Barbiturates Screen Negative ng/mL (Negative) 06/24/23 21:15 Ur Phencyclidine Scrn Negative ng/mL (Negative) 06/24/23 21:15 Ur Amphetamines Screen Negative ng/mL (Negative) 06/24/23 21:15 U Benzodiazepines Scrn Negative ng/mL (Negative) 06/24/23 21:15 Urine Cocaine Screen Negative ng/mL (Negative) 06/24/23 21:15 U Marijuana (THC) Screen Negative ng/mL (Negative) 06/24/23 21:15 Ethyl Alcohol 67 mg/dL (0-10) H 06/25/23 05:27 Hepatitis A IgM Ab Non-reactive (Nonreactive) 06/24/23 16:35 Hep Bs Antigen Non-reactive (Nonreactive) 06/24/23 16:35 Hep B Core IgM Ab Non-reactive (Nonreactive) 06/24/23 16:35 Hepatitis C Antibody Non-reactive (Nonreactive) 06/24/23 16:35 Discharge Plan Discharge Patient Disposition: Home Clinical Impression: Altered mental status, Alcoholic intoxication Condition: Stable Prescriptions: No Action trazodone 50 mg tablet 50 mg PO DIRECTED PRN (Reason: sleep) Qty: 30 3RF Rx Instructions: May take one tablet 30-60 min prior to bedtime as needed for sleep quetiapine [Seroquel] 50 mg tablet 75 mg PO BEDTIME Qty: 45 3RF Rx Instructions: Take one and half tablet at bedtime, total dose 75 mg bupropion HCl [Wellbutrin SR] 200 mg tablet sustained-release 12 hr 200 mg PO QAM Qty: 30 3RF Rx Instructions: Take one tablet every morning metoprolol tartrate 50 mg tablet 50 mg PO BID clonazepam [Klonopin] 0.5 mg tablet 0.5 mg PO BID Qty: 60 1RF Rx Instructions: Take one tablet in morning and afternoon quetiapine 100 mg tablet 100 mg PO BEDTIME trazodone 300 mg tablet See Rx Instructions .ROUTE .COMPLEX Rx Instructions: TAKE 1 TABLET BY MOUTH 30-60 MINUTES PRIOR TO BEDTIME NEEDED. Klonopin 1 mg tablet 1 mg PO BEDTIME Rx Instructions: Take one tablet at bedtime Discharge Orders: Discharge ED (Routine); Ordered 06/25/23 Ordered By: Juan Ingram Referrals: Marlena Nolan MD [Primary Care Provider] - 1-3 days Discharge Diet: Regular Discharge Activity: Increase activity as tolerated Patient Instructions: Alcohol Intoxication (ED), Altered Mental Status (ED), Opioid Safety, Pain Management Activity Restrictions/Additional Instructions: Encourage fluids Avoid alcohol and tobacco Follow-up with your primary care provider this week Sign Out Sign Out Data: Patient Sign Out occurred on 06/25/23 at 06:37. Patient's care was discussed, an d care was transferred from to Ahsan Mosqueda DO. Coding Level of Care Code ED Bottling Room Worker for Alec Carranza
--- NOTE | 2023-06-24 16:31 | XRR_ITS ---
PROCEDURE INFORMATION: Exam: XR Chest Exam date and time: 06/24/2023 4:42 PM Age: 73 years old Clinical indication: Other: AMS TECHNIQUE: Imaging protocol: Radiologic exam of the chest. Views: 1 view. COMPARISON: CT lung screening [id number] 05/23/2022 7:40 AM FINDINGS: Limitations: The study is made with less than full inspiration. Patient is rotated towards the right. Lungs: There is partial atelectasis at both lung bases. Pleural spaces: There may be small bilateral pleural effusions. Heart/Mediastinum: Heart is within normal limits of size. Bones/joints: Unremarkable. XR/XR chest 1V portable [id number] IMPRESSION: 1. Basilar atelectasis 2. Possible small pleural effusions.
--- NOTE | 2023-06-24 16:31 | ECG_ITS ---
[facility] Test Date: 2023-06-24 Pat Name: Richard Combs Department: Room: Gender: Male Associate Director Of Development: : 1950 Requested By: Burke Reilly Order Number: [id number] Zach MD: Eduardo Earl M.D. Measurements Intervals Turner Rate: 89 P: 38 MT: 177 QRS: -49 QRSD: 102 T: 55 QT: 365 QTc: 446 Interpretive Statements SINUS RHYTHM LEFT AXIS DEVIATION [QRS AXIS < -30] PATTERN CONSISTENT WITH PULMONARY DISEASE INCOMPLETE RIGHT BUNDLE BRANCH BLOCK [90+ ms QRS DURATION, TERMINAL R IN V1/V2, 40+ ms S IN I/aVL/V4/V5/V6] Compared to ECG 08/19/2019 13:25:38 Left-axis deviation now present Incomplete right bundle-branch block now present T-wave abnormality no longer present Electronically Signed On 06-25-2023 8:29:27 CDT by Eduardo Earl M.D. [id number]
[2023-06-24 16:34] VITALS: BP 115/87; PULSE 97; RESP 18; TEMP 36.8; O2SAT 98
--- NOTE | 2023-06-24 16:34 | PC.NURSE ---
UNABLE TO OBTAIN VITALS AT TRIAGE DUE TO PATIENT BEHAVIOR.
[2023-06-24] MEDS: haloperidol inj 5 mg/mL INJ 1 mL 2 MG IVP (16:37)
[2023-06-24 16:45] LABS: Basophils % 0.6 %; Eosinophils # 0.1 10^3/uL (0.0-0.8); Eosinophils % 1.8 %; Hematocrit 45.5 % (42.0-52.0); Lymphocytes # 1.9 10^3/uL (0.8-4.8); Lymphocytes % 28.4 %; Mean Corpuscular HGB Conc 35.2 g/dL (30.0-36.0); Mean Corpuscular Hemoglobin 33.3 pg (28.0-34.0); Mean Corpuscular Volume 94.8 fl (80-94); Mean Platelet Volume 9.6 fL (7.4-10.4); Monocytes # 0.7 10^3/uL (0.2-0.9); Monocytes % 10.2 %; Neutrophils # 3.92 10^3/uL (1.8-7.7); Neutrophils % 58.1 %; Nucleated Red Blood Cells % 0.3 %; Platelet Count 220 10^3/cmm (130-400); Red Cell Distribution Width 16.3 % (12.1-15.1); White Blood Count 6.8 10^3/uL (4.0-10.0)
[2023-06-24 17:17] LABS: Alanine Aminotransferase 160 U/L (0-41); Albumin Level 3.7 g/dL (3.5-5.2); Alkaline Phosphatase 142 U/L (40-130); Anion Gap 30.1 (5-19); Aspartate Amino Transferase 264 U/L (0-40); Blood Urea Nitrogen 19 mg/dL (8-23); Calcium 8.6 mg/dL (8.5-10.5); Carbon Dioxide 17 mmol/L (22-29); Chloride 98 mmol/L (98-107); Globulin 2.8 g/dL (1.3-4.6); Glucose 65 mg/dL (65-115); Osmolality Calculated 292 mOsm/kg (285-295); Potassium 4.1 mmol/L (3.5-5.1); Sodium 141 mmol/L (136-145); Thyroid Stimulating Hormone 0.95 uIU/mL (0.27-4.20); Total Bilirubin 2.1 mg/dL (0.15-1.2); Total Protein 6.5 g/dL (6.6-8.7)
[2023-06-24] MEDS: ziprasidone 20 mg/mL SDV IM (17:18)
[2023-06-24 17:29] LABS: Acetaminophen < 5.0 ug/mL (10-30); Salicylate < 0.3 mg/dL (3-10)
[2023-06-24 17:30] LABS: Alcohol Level 316 mg/dL (0-10)
--- NOTE | 2023-06-24 17:33 | USR_ITS ---
PROCEDURE INFORMATION: Exam: US Abdomen, Limited; Right Upper Quadrant Exam date and time: 06/24/2023 6:02 PM Age: 73 years old Clinical indication: Abnormal findings; Abnormal lab test; Other: Elevated t bili; Additional info: Transaminitis, elevated t. Bili TECHNIQUE: Imaging protocol: Real time ultrasound of the abdomen with image documentation. Limited exam focused on the right upper quadrant. COMPARISON: CT kidney stone [id number] 05/23/2018 1:29 PM FINDINGS: Limitations: Study is limited due to patient body habitus and poor sound transmission. Liver: There is diffusely increased echogenicity in the liver consistent with fatty change. There is borderline hepatomegaly. Liver measures of these 18 cm in length. Gallbladder: Gallbladder is not visualized on this examination. Biliary ducts: Common bile duct is not seen on this examination. Pancreas: Pancreas is unremarkable. Right kidney: There are least 2 cysts in the lower pole right kidney measuring 2 cm and 1.8 cm. There is no evidence of right hydronephrosis. Inferior vena cava: The aorta and IVC are obscured by intestinal gas and not well seen due to body habitus also. US/US gall bladder [id number] IMPRESSION: 1. Limited exam secondary to patient body habitus 2. Fatty liver
--- NOTE | 2023-06-24 17:45 | CTR_ITS ---
PROCEDURE INFORMATION: Exam: CT Head Without Contrast Exam date and time: 06/24/2023 6:26 PM Age: 73 years old Clinical indication: Altered mental status/memory loss; Patient HX: AMS due to acute intoxication. TECHNIQUE: Imaging protocol: Computed tomography of the head without contrast. Radiation optimization: All CT scans at this facility use at least one of these dose optimization techniques: automated exposure control; mA and/or kV adjustment per patient size (includes targeted exams where dose is matched to clinical indication); or iterative reconstruction. REPORTING DATA: Count of CT and Cardiac NM exams in prior 12 months: This patient has received 0 known CTs and 0 known cardiac nuclear medicine studies in the 12 months prior to the current study. COMPARISON: CT head wo con* [id number] 08/01/2019 7:07 AM RADIATION DOSE METRICS: Total DLP (mGy-cm): 914.98 FINDINGS: Brain: There is moderate cortical atrophy. Low-density changes in the white matter are consistent with nonspecific small vessel chronic ischemic change. There is no intracranial mass, hemorrhage or edema. Cerebral ventricles: No ventriculomegaly. Paranasal sinuses: Visualized sinuses are unremarkable. No fluid levels. Mastoid air cells: Visualized mastoid air cells are well aerated. Bones/joints: Unremarkable. No acute fracture. Soft tissues: Unremarkable. CT/CT head wo con* [id number] IMPRESSION: No acute intracranial finding. No significant change from 08/01/2019
[2023-06-24] MEDS: folic acid 1 MG, multivitamin inj 10 ML, thiamine 100 MG in sodium chloride 0.9% 1,000 ML 252.8 MG IV (17:50)
[2023-06-24 18:05] LABS: Lipase 84 U/L (13-60)
[2023-06-24 18:18] LABS: Hepatitis A Antibody IgM Non-Reactive (Nonreactive); Hepatitis B Core IgM Non-Reactive (Nonreactive); Hepatitis B Surface Antigen Non-Reactive (Nonreactive); Hepatitis C Virus Antibody Non-Reactive (Nonreactive)
--- NOTE | 2023-06-24 20:42 | PC.NURSE ---
RN into room to check on pt. Pt is currently groggy but awake. RN and nurse tech changed bedding and cleaned pt. Pt currently resting quietly in bed w/o complaints.
[2023-06-24 21:18] LABS: Add Urine Microscopic? NO; Charge for UA Resulting for Rev
[2023-06-24 21:30] LABS: Bilirubin Urine Neg (Negative); Blood Urine Neg (Negative); Glucose Urine UA Norm (Normal); Ketones Urine 2+ (Negative); Leukocyte Esterase Urine Negative (Negative); Nitrate Urine Negative (Negative); Protein Urine Neg (Negative); Urine Appearance Clear (CLEAR); Urine Color Yellow (Yellow); Urobilinogen Urine 1 mg/dL (Negative); pH Urine 5 (5-7)
[2023-06-24 21:31] LABS: Amphetamines Screen Urine Negative (Negative); Barbiturates Screen Urine Negative (Negative); Benzodiazepines Screen Urine Negative (Negative); Cocaine Screen Urine Negative (Negative); Opiate Screen Urine Negative (Negative); PCP Screen Urine Negative (Negative); THC Screen Urine Negative (Negative)
[2023-06-24 21:54] VITALS: BP 146/80; PULSE 95; RESP 16; O2SAT 100
--- NOTE | 2023-06-24 21:54 | PC.NURSE ---
RN into room to assess pt. MARGARET shares with RN that pt is making violent threats towards at home due to her not bringing him any pants, saying, I am going to beat her when I get home for not bringing me any pants. PSA stated that he has made this statement several times now. Pt has been calm and cooperative, laying in bed. No aggression or irritation showed towards staff. MD notified. Will continue to monitor.
--- NOTE | 2023-06-24 23:01 | PC.NURSE ---
Pt served with copy of 96 hour hold by this nurse and security. Pt was belligerent and stated I'm gonna kill that doctor, he's an idiot.
--- NOTE | 2023-06-24 23:53 | PC.NURSE ---
RN into room to assess pt. Pt was trying to get out of bed per PSA. RN brought coke and sandwich to pt. Pt currently resting in bed drinking coke, calm and quiet at this time.
[2023-06-25 05:16] VITALS: BP 162/89; PULSE 99; RESP 16; O2SAT 96
--- NOTE | 2023-06-25 05:33 | PC.NURSE ---
RN into room to obtain lab samples from pt. Pt is currently calm and awake with clear, appropriate speech. Pt currently denying HI, SI, stating, I don't really remember anything from last night. Pt denies wishing to harm his as stated last night to PSA. Pt acknowledged his 96 hour hold and stated that he was okay with staying if doctor wanted him to. MD notified. Will continue to monitor.
[2023-06-25 06:09] LABS: Alanine Aminotransferase 150 U/L (0-41); Albumin Level 3.3 g/dL (3.5-5.2); Alcohol Level 67 mg/dL (0-10); Alkaline Phosphatase 130 U/L (40-130); Aspartate Amino Transferase 235 U/L (0-40); Blood Urea Nitrogen 14 mg/dL (8-23); Carbon Dioxide 19 mmol/L (22-29); Chloride 100 mmol/L (98-107); Globulin 2.6 g/dL (1.3-4.6); Glucose 69 mg/dL (65-115); Osmolality Calculated 289 mOsm/kg (285-295); Sodium 140 mmol/L (136-145); Total Bilirubin 2.5 mg/dL (0.15-1.2); Total Protein 5.9 g/dL (6.6-8.7)
[2023-06-25 06:10] LABS: Anion Gap 24.9 (5-19); Potassium 3.9 mmol/L (3.5-5.1)
[2023-06-25] MEDS: sodium chloride 0.9% 1,000 ML 999 ML IV ×2 (07:15→11:39)
--- NOTE | 2023-06-25 07:20 | DCPLANNER ---
Jeffery declined due to alcohol use and the patient will need to detox here for atleast 72 hours.
--- NOTE | 2023-06-25 07:37 | DCPLANNER ---
I called [facility] spoke with Benita at 0732 advised no beds. Ammy Murguia age is 40-65. [facility]. Fax patient chart and the doctor will review. Packet was faxed at 07:36.
[2023-06-25 08:00] VITALS: BP 102/61; PULSE 104; RESP 16; O2SAT 93
--- NOTE | 2023-06-25 08:30 | PC.PHAR ---
PT ARRIVED IN ALTERED STATE, AGITATED. EXTERNAL MED LIST IS FROM [facility]. UNABLE TO VERIFY WITH PHARMACY OR PATIENT. NOTATIONS ON LAST FILL DATE SHOW ALL THE MEDS PT PICKS UP AT [facility].
[2023-06-25 10:04] LABS: Blood Urea Nitrogen 15 mg/dL (8-23); Calcium 7.8 mg/dL (8.5-10.5); Carbon Dioxide 18 mmol/L (22-29); Chloride 102 mmol/L (98-107); Creatinine Clr Calc Pharmacy 86.7096; Glucose 68 mg/dL (65-115); Osmolality Calculated 291 mOsm/kg (285-295); Sodium 141 mmol/L (136-145)
[2023-06-25] MEDS: CLONazepam 0.5 mg Tablet PO (11:37)
[2023-06-25 11:49] VITALS: BP 146/85; PULSE 65; O2SAT 97
[2023-06-25] MEDS: lactated ringers 1,000 ML 100 ML IV (11:49)
[2023-06-25 12:00] VITALS: BP 151/97; PULSE 68; O2SAT 95
--- NOTE | 2023-06-25 13:02 | W.PM.PSYCONS ---
Providers/Reason for Consult Consulting Physican/Specialty*: Chidi Felipe MD/Psychiatry Reason for Consult*: suicidal ideation. Primary Care Provider: Marlena Nolan MD Psych Consult HPI History of Present Illness Richard Combs is a 73 year old male who presented to the emergency department intoxicated and having made significant threats to harm himself while intoxicated. The patient had reported outpatient follow-up at the [facility] and records were reviewed from the most recent outpatient visits. The patient had sobered up and had minimize having thoughts of hurting himself or others despite acknowledging that he may have made statements of such while he was intoxicated. Meds Home Medications and Allergies Home Medications Medication Instructions Recorded Confirmed Last Taken Type metoprolol tartrate 50 mg tablet 50 mg PO BID 01/22/23 06/25/23 Unknown History bupropion HCl 200 mg tablet,12 hr 200 mg PO QAM #30 tabs 05/11/23 06/25/23 Unknown Rx sustained-release (Wellbutrin SR) quetiapine 50 mg tablet (Seroquel) 75 mg PO BEDTIME #45 tabs 05/11/23 06/25/23 Unknown Rx trazodone 50 mg tablet 50 mg PO DIRECTED PRN sleep #30 05/11/23 06/25/23 Unknown Rx tabs clonazepam 0.5 mg tablet (Klonopin) 0.5 mg PO BID #60 tabs 05/17/23 06/25/23 Unknown Rx clonazepam 1 mg tablet (Klonopin) 1 mg PO BEDTIME 06/25/23 06/25/23 Unknown History quetiapine 100 mg tablet 100 mg PO BEDTIME 06/25/23 06/25/23 Unknown History trazodone 300 mg tablet See Rx Instructions .Route .COMPLEX 06/25/23 06/25/23 Unknown History Allergies Allergy/AdvReac Type Severity Reaction Status Date / Time ketorolac Allergy Unknown Unknown Verified 06/24/23 16:33 naproxen Allergy Unknown Unknown Verified 06/24/23 16:33 vortioxetine Allergy Unknown Unknown Verified 06/24/23 16:33 [From Brintellix] Current Medications Current Medications Generic Name Dose Route Start Last Admin Trade Name Freq PRN Reason Stop Dose Admin Lactated Ringer's 1,000 mls @ 100 mls/hr 06/25/23 11:45 06/25/23 11:49 Lactated Ringers IV 100 mls/hr .Q10H FAY Administration PFSH NPU PFSH: Medical History Alcohol use disorder, moderate, in sustained remission Bipolar 1 disorder, depressed, mild Cannabis dependence in remission Chronic post-traumatic stress disorder Heavy cigarette smoker Psychiatric care Family History (Updated 06/25/23 @ 13:47 by Juan Ingram MD) Other Cancer Social History (Updated 06/25/23 @ 13:47 by Juan Ingram MD) Smoking and tobacco status: current every day smoker Alcohol intake: current Mental Status Exam MSE Comments: Disheveled male who appeared his stated age who appeared in no acute distress. His speech was normal in regards to rate rhythm and prosody. There is no evidence of any abnormal involuntary motor movements tics or tremors. His mood was described as all right. His affect appeared euthymic. He did not appear to be responding to internal stimuli. There was no clear evidence of delusional thinking. He denied any auditory or visual hallucinations. He denied any homicidal or suicidal ideation. His insight was fair. His judgment was improving. His impulse control appeared limited at best. His attention span appeared adequate. He was alert and oriented to person place and time. His recent and remote memory appeared to be grossly intact. Vitals/I&O/Wt Last Vital Signs Temp 98.2 F 06/24/23 16:34 Pulse 65 06/25/23 11:49 Resp 16 06/25/23 08:00 BP 146/85 06/25/23 11:49 Pulse Ox 97 06/25/23 11:49 O2 Del Method Room Air 06/25/23 11:49 06/24/23 06/25/23 06/25/23 22:59 06:59 14:59 Intake Total 1149.85 / 1149.85 Balance 1149.85 / 1149.85 Weight last 48 hrs Weight 136.078 kg Data NPU 06/24/23 16:35 06/25/23 13:23 A&P Assessment and plan (1) Alcohol abuse: (2) Bipolar 1 disorder, depressed, mild: Plan 1. Rescinded 96-hour hold with the patient does not appear to be danger to himself or others. #2. Recommended resuming outpatient treatment at [facility] Attestations NPU Medical Necessity Statement*: NA Coding Level of Care Code Acute Code for Chg Fwd Diagnoses Alcohol abuse F10.10 Bipolar 1 disorder, depressed, mild F31.31
--- NOTE | 2023-06-25 13:43 | P.CONIM_ITS ---
Providers/Reason For Consult Consulting Physician/Specialty*: Juan Ingram MD, Hospitalist. Reason for Consult*: Metabolic acidosis Requesting Physician: Dr. Mosqueda Primary Care Provider: Marlena Nolan MD History of Present Illness History of Present Illness Richard Combs is a 73 year old male who presented to the emergency department with alcohol intoxication on June 24. EMS was called for altered mental status, and there are some notes he was hypoglycemic with EMS. He was making significant verbal threats, and a 96-hour hold was placed. He was hydrated, with hopes that a psychiatric consultation could occur when he was able to mentally cooperate. The next day, I was consulted for persistent metabolic acidosis. There was a concern the patient might need to be admitted to the hospital for this. When I visited with the patient he was alert, oriented, and reported no suicidal ideation or homicidal ideation. He reports that he had ingested a large amount of alcohol and does not remember anything that he said before. He denies ingesting anything other than liquor and beer. He reports he feels fine currently and would like to talk to his , and potentially go home. I had a previous discussion with the emergency department physician to involve psychiatry and see if the 96-hour hold was still needed. I have been informed that the 96-hour hold has been rescinded by psychiatry. Review of Systems General: Reports: 10 or more systems reviewed and unremarkable except in HPI and below Card: Denies: chest pain Resp: Denies: dyspnea GI: Denies: abdominal pain, nausea, vomiting or melena Medications/Allergies Home Medications Medication Instructions Recorded Confirmed Last Taken Type metoprolol tartrate 50 mg tablet 50 mg PO BID 01/22/23 06/25/23 Unknown History bupropion HCl 200 mg tablet,12 hr 200 mg PO QAM #30 tabs 05/11/23 06/25/23 Unknown Rx sustained-release (Wellbutrin SR) quetiapine 50 mg tablet (Seroquel) 75 mg PO BEDTIME #45 tabs 05/11/23 06/25/23 Unknown Rx trazodone 50 mg tablet 50 mg PO DIRECTED PRN sleep #30 05/11/23 06/25/23 Unknown Rx tabs clonazepam 0.5 mg tablet (Klonopin) 0.5 mg PO BID #60 tabs 05/17/23 06/25/23 Unknown Rx clonazepam 1 mg tablet (Klonopin) 1 mg PO BEDTIME 06/25/23 06/25/23 Unknown History quetiapine 100 mg tablet 100 mg PO BEDTIME 06/25/23 06/25/23 Unknown History trazodone 300 mg tablet See Rx Instructions .Route .COMPLEX 06/25/23 06/25/23 Unknown History Allergies Allergy/AdvReac Type Severity Reaction Status Date / Time ketorolac Allergy Unknown Unknown Verified 06/24/23 16:33 naproxen Allergy Unknown Unknown Verified 06/24/23 16:33 vortioxetine Allergy Unknown Unknown Verified 06/24/23 16:33 [From Brintellix] Current Medications Generic Name Dose Route Start Last Admin Trade Name Freq PRN Reason Stop Dose Admin Lactated Ringer's 1,000 mls @ 100 mls/hr 06/25/23 11:45 06/25/23 11:49 Lactated Ringers IV 100 mls/hr .Q10H FAY Administration PFSH Acute PFSH: Medical History Alcohol use disorder, moderate, in sustained remission Bipolar 1 disorder, depressed, mild Cannabis dependence in remission Chronic post-traumatic stress disorder Heavy cigarette smoker Psychiatric care Family History (Updated 06/25/23 @ 13:47 by Juan Ingram MD) Other Cancer Social History (Updated 06/25/23 @ 13:47 by Juan Ingram MD) Smoking and tobacco status: current every day smoker Alcohol intake: current Vitals/I&O/Wt Last Vital Signs Temp 98.2 F 06/24/23 16:34 Pulse 65 06/25/23 11:49 Resp 16 06/25/23 08:00 BP 146/85 06/25/23 11:49 Pulse Ox 97 06/25/23 11:49 O2 Del Method Room Air 06/25/23 11:49 06/24/23 06/25/23 06/25/23 22:59 06:59 14:59 Intake Total 1149.85 / 1149.85 Balance 1149.85 / 1149.85 Weight last 48 hrs Weight 136.078 kg Physical Exam Narrative: Male, conversant, who denies homicidal and suicidal ideation. He is alert and oriented x3. He reports he would like to be able to talk with his . He does not appear to be withdrawing. There is no jitteriness. Blood pressure is near normal. No tachycardia. HEENT: Atraumatic and normocephalic. Oropharynx clear. Neck is supple no lymphadenopathy thyromegaly Cardiovascular regular rate and rhythm, no murmur Lungs clear no wheezing or crackles Abdomen is soft nontender positive bowel sounds. No obvious organomegaly exams deferred Extremities no cyanosis clubbing or edema, cap refill brisk Skin no rash Neuro no focal deficits Data 06/24/23 16:35 06/25/23 13:23 Other Labs: EKG done on arrival to the emergency department which I reviewed demonstrates sinus rhythm, left axis deviation, incomplete right bundle. No ST elevation or significant concerning acute changes. Lipase is 84 Urinalysis negative Initial alcohol level 316 with repeat of 67 Hepatitis panel negative Urine drug screen negative Acetaminophen level and salicylate level not detectable Initial anion gap 30.1 and creatinine 1.3. Total bilirubin 2.1, AST 264, ALT 160, alk phos 142. Current CMP shows improved from admission metabolic acidosis with a anion gap of 25 which is still elevated, and a bicarb level of 17. AST and ALT levels are about the same as hours earlier but better than on admission.. Bilirubin level is slightly higher at 2.9. Gallbladder ultrasound limited exam, demonstrating fatty liver. CT head no acute change. Chest x-ray poor quality film. Cannot rule out bibasilar infiltrate but suspect this is secondary to poor inspiration A&P Assessment and plan (1) Metabolic acidosis: Anion gap is improved from 30 to about 25. At this point he is asymptomatic. I suspect in part this is due to his alcohol intake. He denies ingestion of any other substance, and his renal function is improved. His LFTs, AST and ALT have stabilized and are decreasing from admission. Bilirubin slightly higher as 1 would expect in somebody that has enzyme elevation from excessive alcohol intake. I recommended to the patient that he be placed under observation, continue fluids overnight, and recheck of his liver tests as well as his electrolytes tomorrow. He refuses. He states he wants to go home, follow-up with his primary care provider, refrain from alcohol. He reports he will get lab work done later this week. The risks and benefits of going directly home including and/or permanent disability were discussed. He is decisional currently and states he is going home. Considering the above, I do not think anything is gained by having the patient signed out AGAINST MEDICAL ADVICE. He was given an opportunity to ask questions, and agrees with the outpatient plan only. I did discuss with him, and have him relay back to me, that if he continues to drink there is a high likelihood of . (2) Transaminitis: Likely secondary to alcohol intake. Gallbladder ultrasound demonstrated fatty liver Hepatitis panel negative Recommend follow-up outpatient with primary care provider (3) Altered mental status: Resolved with hydration, time away from alcohol intake (4) Alcoholic intoxication: Avoid all alcohol Resources for quitting given (5) Tobacco dependency: Abstain from tobacco Follow-up with primary care provider Plan Other medical problems as outlined in past medical history Consult Attestations Medical Necessity Statement: We will Diagnoses Metabolic acidosis E87.20 Transaminitis R74.01 Altered mental status R41.82 Alcoholic intoxication F10.929 Tobacco dependency F17.200 Time Spent (min) 98
[2023-06-25 13:59] LABS: Alanine Aminotransferase 147 U/L (0-41); Albumin Level 3.2 g/dL (3.5-5.2); Alkaline Phosphatase 123 U/L (40-130); Anion Gap 24.9 (5-19); Aspartate Amino Transferase 234 U/L (0-40); Blood Urea Nitrogen 12 mg/dL (8-23); Calcium 7.8 mg/dL (8.5-10.5); Carbon Dioxide 17 mmol/L (22-29); Chloride 99 mmol/L (98-107); Globulin 2.5 g/dL (1.3-4.6); Glucose 107 mg/dL (65-115); Osmolality Calculated 284 mOsm/kg (285-295); Potassium 3.9 mmol/L (3.5-5.1); Sodium 137 mmol/L (136-145); Total Bilirubin 2.9 mg/dL (0.15-1.2); Total Protein 5.7 g/dL (6.6-8.7)
[2023-06-25 15:02] VITALS: PULSE 98; O2SAT 93
== END 2023-06-25 15:02 | disposition home or self-care (01) ==
PROVIDERS: Emergency Medicine; Internal Medicine; Emergency Provider Family Medicine; PCP Family Medicine
DX: R41.82 Altered mental status, unspecified (principal); F10.129 Alcohol abuse with intoxication, unspecified; Y90.3 Blood alcohol level of 60-79 mg/100 ml; F17.210 Nicotine dependence, cigarettes, uncomplicated
CPT/HCPCS: 36415; 51701; 70450; 71045; 76705; 80048; 80053; 80074; 80306; 80307; 81003; 83690; 84443; 85025; 93005; 96361; 96372; 96374; 99285; J1630; J3411; J3486; J3490; J7030; J7120

== ENCOUNTER 2024-07-04 02:41 | Emergency (ER) | payer MEDICAID, SELFPAY ==
[2024-07-04 02:42] VITALS: BP 132/85; PULSE 67; RESP 16; TEMP 36.7; O2SAT 97; BMI 27.1
--- NOTE | 2024-07-04 02:58 | ED_ITS ---
Documented by User: Keegan Mcwilliams DO 07/05/24 03:42 HPI - Alcohol 2 General: Chief Complaint: Alcohol Stated Complaint: ETOH Time Seen by Provider: 07/04/24 02:42 History of Present Illness: Patient brought in by ambulance for being stressed out and highly intoxicated. They said this is the fifth time they ran on him in 2 days normally he is alert enough to declined to come in but this time they felt he was so intoxicated they brought him in. He says been drinking vodka all the time because he misses his who he had to put in the group home about 2 months ago and he does not have transportation to go see her. Patient does say he would like to go to sleep and not wake up because he misses his however when asked how he would make this happen he just states that he would have an . Review of Systems 2 General: Reports: 10 or more systems reviewed and unremarkable except in HPI and below PFSH ED 2 PFSH: Medical History Alcohol dependence in remission in early remission, last alcohol use 06/25/23 Psychiatric care Heavy cigarette smoker Chronic post-traumatic stress disorder Bipolar 1 disorder, depressed, mild Family History Other Cancer Social History Smoking and tobacco/nicotine status: current every day tobacco/nicotine user Alcohol intake: current Physical Exam 2 Const: COMMON NORMALS: no acute distress, average body habitus, patient oriented x3, healthy appearing, alert and well nourished OTHER: Appears to be highly intoxicated Neck/C-Spine: COMMON NORMALS: no JVD Chest: COMMONS NORMALS: normal inspection of the chest and normal palpation of entire chest wall Resp: COMMON NORMALS: normal respiratory effort, No retractions, No use of accessory muscles and clear to auscultation bilaterally AUSCULTATION: clear to auscultation bilaterally Cardio: COMMON NORMALS: no JVD, regular rate, regular rhythm, S1 normal heart sound present, S2 normal heart sound present, No gallops present (Cardio), No clicks present (Cardio), No murmurs present (Cardio) and No rub (Cardio) R ATE: regular rate RHYTHM: regular rhythm HEART SOUNDS: S1 normal heart sound present and S2 normal heart sound present GI: COMMON NORMALS: Normal to inspection, nondistended, normoactive bowel sounds present, Soft to palpation, non-tender, No hepatosplenomegaly present and no masses PALPATION: Yes Soft to palpation and Yes No hepatosplenomegaly present Neuro: COMMON NORMALS: patient oriented x3 SENSORIUM/ORIENTATION: Yes alert Course 2 ED course: Patient reevaluated throughout the night. Patient no longer intoxicated but is still verbalizing suicidal ideation. Otherwise patient has no other issues or complaints plaints at this time. Vital Signs: Vital signs: Vital Signs Temperature 98.0 F 07/04/24 02:42 Pulse Rate 64 07/05/24 09:06 Respiratory Rate 18 07/05/24 09:06 Blood Pressure 146/66 07/05/24 09:06 Pulse Oximetry 94 07/05/24 09:06 Oxygen Delivery Me thod Room Air 07/05/24 02:20 MDM - Alcohol Medical Decision Making Once patient was cleared medically we started calling around and ended up calling [facility] and Dr. Villegas excepted in transition. Differential Diagnosis Likely alcohol intoxication Lab Data 07/04/24 18:42 07/04/24 18:42 Radiology Impressions Chest X-Ray 07/04/24 18:17 IMPRESSION: Central vascular prominence with bilateral interstitial opacities likely representing mild pulmonary edema. No focal consolidations. Laboratory Results WBC 9.85 10^3/uL (3.29-11.43) 07/04/24 18:42 RBC 5.36 10^6/uL (3.85-5.65) 07/04/24 18:42 Hgb 17.10 g/dL (11.27-16.99) H 07/04/24 18:42 Hct 49.0 % (37-53) 07/04/24 18:42 MCV 91.4 fl (82-101) 07/04/24 18:42 MCH 31.9 pg (27-33) 07/04/24 18:42 MCHC 34.9 g/dL (30-55) 07/04/24 18:42 RDW 14.6 % (12.1-15.1) 07/04/24 18:42 Plt Count 161 10^3/cmm (157-399) 07/04/24 18:42 MPV 9.5 fL (7.4-10.4) 07/04/24 18:42 Neut % (Auto) 76.3 % 07/04/24 18:42 Lymph % (Auto) 14.1 % 07/04/24 18:42 [place] % (Auto) 7.8 % 07/04/24 18:42 Eos % (Auto) 0.7 % 07/04/24 18:42 Baso % (Auto) 0.4 % 07/04/24 18:42 Neut # (Auto) 7.51 10^3/uL (1.8-7.7) 07/04/24 18:42 Lymph # (Auto) 1.4 10^3/uL (0.8-4.8) 07/04/24 18:42 [place] # (Auto) 0.8 10^3/uL (0.2-0.9) 07/04/24 18:42 Eos # (Auto) 0.1 10^3/uL (0.0-0.8) 07/04/24 18:42 Baso # (Auto) 0.0 10^3/uL (0.0-0.1) 07/04/24 18:42 Nucleated RBC % (auto) 0 % 07/04/24 18:42 Nucleated RBCs # 0.0 /100WBC 07/04/24 18:42 Sodium 137 mmol/L (136-145) 07/04/24 18:42 Potassium 3.4 mmol/L (3.5-5.1) L 07/04/24 18:42 Chloride 98 mmol/L (98-107) 07/04/24 18:42 Carbon Dioxide 27 mmol/L (22-29) 07/04/24 18:42 Anion Gap 15.4 (5-19) 07/04/24 18:42 BUN 28 mg/dL (8-23) H 07/04/24 18:42 Creatinine 1.5 mg/dL (0.7-1.2) H 07/04/24 18:42 GFR Calculation Not Reportable 07/04/24 18:42 Glucose 124 mg/dL (65-115) H 07/04/24 18:42 Calculated Osmolality 291 mOsm/kg (285-295) 07/04/24 18:42 Calcium 8.8 mg/dL (8.5-10.5) 07/04/24 18:42 Total Bilirubin 1.2 mg/dL (0.15-1.2) 07/04/24 18:42 AST 56 U/L (0-40) H 07/04/24 18:42 ALT 38 U/L (0-41) 07/04/24 18:42 Alkaline Phosphatase 143 U/L (40-130) H 07/04/24 18:42 Total Protein 7.0 g/dL (6.6-8.7) 07/04/24 18:42 Albumin 3.7 g/dL (3.5-5.2) 07/04/24 18:42 Globulin 3.3 g/dL (1.3-4.6) 07/04/24 18:42 TSH 0.66 uIU/mL (0.27-4.20) 07/04/24 03:00 Urine Color Yellow (Yellow) 07/04/24 14:21 Urine Appearance Clear (CLEAR) 07/04/24 14:21 Urine pH 6.0 (5-7) 07/04/24 14:21 Ur Specific [place] 1.016 (1.005-1.030) 07/04/24 14:21 Urine Protein Trace (Negative) A 07/04/24 14:21 Urine Glucose (UA) Negative (Normal) 07/04/24 14:21 Urine Ketones Trace (Negative) 07/04/24 14:21 Urine Blood Trace (Negative) A 07/04/24 14:21 Urine Nitrate Negative (Negative) 07/04/24 14:21 Urine Bilirubin Negative (Negative) 07/04/24 14:21 Urine Urobilinogen 1.0 mg/dL (Negative) 07/04/24 14:21 Ur Leukocyte Esterase Negative (Negative) 07/04/24 14:21 Urine RBC 0-2 /hpf (0-2) 07/04/24 14:21 Urine WBC 0-5 /hpf (0-5) 07/04/24 14:21 Ur Squamous Epith Cells 0-5 /hpf (0-5) 07/04/24 14:21 Amorphous Sediment Not Reportable 07/04/24 14:21 Urine Bacteria None seen /hpf (NONE) 07/04/24 14:21 Hyaline Casts 3.30 /lpf 07/04/24 14:21 Salicylates < 0.3 mg/dL (3-10) L 07/04/24 03:00 Urine Opiates Screen Negative ng/mL (Negative) 07/04/24 14:21 Acetaminophen < 5.0 ug/mL (10-30) L 07/04/24 03:00 Ur Barbiturates Screen Negative ng/mL (Negative) 07/04/24 14:21 Ur Phencyclidine Scrn Negative ng/mL (Negative) 07/04/24 14:21 Ur Amphetamines Screen Negative ng/mL (Negative) 07/04/24 14:21 U Benzodiazepines Scrn Negative ng/mL (Negative) 07/04/24 14:21 Urine Cocaine Screen Negative ng/mL (Negative) 07/04/24 14:21 U Marijuana (THC) Screen Negative ng/mL (Negative) 07/04/24 14:21 Ethyl Alcohol 119 mg/dL (0-10) H 07/04/24 09:02 SARS-CoV-2 Ag (Rapid) negative (Negative) 07/04/24 14:41 All radiology interpretation(s) finalized by discharge Discharge Plan Discharge Patient Disposition: er Psychiatric Hosp Clinical Impression: Suicidal ideation Condition: Stable Referrals: Marlena Nolan MD [Primary Care Provider] - Sign Out Sign Out Data: Patient Sign Out occurred on 07/04/24 at 06:24. Patient's care was discussed, and care was transferred from Keegan Mcwilliams DO to Ahsan Mosqueda DO. Coding Level of Care Code ED Machine Assistant for Chg Fwd Documented by User: Ahsan Mosqueda DO 07/05/24 12:49 HPI - Alcohol 2 General: Chief Complaint: Alcohol Stated Complaint: ETOH Time Seen by Provider: 07/04/24 02:42 PFSH ED 2 PFSH: Medical History Alcohol dependence in remission in early remission, last alcohol use 06/25/23 Psychiatric care Heavy cigarette smoker Chronic post-traumatic stress disorder Bipolar 1 disorder, depressed, mild Family History Other Cancer Social History Smoking and tobacco/nicotine status: current every day tobacco/nicotine user Alcohol intake: current Course 2 Vital Signs: Vital signs: Vital Signs Temperature 98.0 F 07/04/24 02:42 Pulse Rate 64 07/05/24 09:06 Respiratory Rate 18 07/05/24 09:06 Blood Pressure 146/66 07/05/24 09:06 Pulse Oximetry 94 07/05/24 09:06 Oxygen Delivery Me thod Room Air 07/05/24 02:20 MDM - Alcohol Medical Decision Making Once patient was cleared medically we started calling around and ended up calling [facility] and Dr. Villegas excepted in transition. Were able to eventually get acceptance at [facility]. Patient transferred via [facility]. Prior to her leaving he was rather anxious likely from alcohol withdrawal. Patient given Ativan Lab Data 07/04/24 18:42 07/04/24 18:42 Radiology Impressions Chest X-Ray 07/04/24 18:17 IMPRESSION: Central vascular prominence with bilateral interstitial opacities likely representing mild pulmonary edema. No focal consolidations. Laboratory Results WBC 9.85 10^3/uL (3.29-11.43) 07/04/24 18:42 RBC 5.36 10^6/uL (3.85-5.65) 07/04/24 18:42 Hgb 17.10 g/dL (11.27-16.99) H 07/04/24 18:42 Hct 49.0 % (37-53) 07/04/24 18:42 MCV 91.4 fl (82-101) 07/04/24 18:42 MCH 31.9 pg (27-33) 07/04/24 18:42 MCHC 34.9 g/dL (30-55) 07/04/24 18:42 RDW 14.6 % (12.1-15.1) 07/04/24 18:42 Plt Count 161 10^3/cmm (157-399) 07/04/24 18:42 MPV 9.5 fL (7.4-10.4) 07/04/24 18:42 Neut % (Auto) 76.3 % 07/04/24 18:42 Lymph % (Auto) 14.1 % 07/04/24 18:42 [place] % (Auto) 7.8 % 07/04/24 18:42 Eos % (Auto) 0.7 % 07/04/24 18:42 Baso % (Auto) 0.4 % 07/04/24 18:42 Neut # (Auto) 7.51 10^3/uL (1.8-7.7) 07/04/24 18:42 Lymph # (Auto) 1.4 10^3/uL (0.8-4.8) 07/04/24 18:42 [place] # (Auto) 0.8 10^3/uL (0.2-0.9) 07/04/24 18:42 Eos # (Auto) 0.1 10^3/uL (0.0-0.8) 07/04/24 18:42 Baso # (Auto) 0.0 10^3/uL (0.0-0.1) 07/04/24 18:42 Nucleated RBC % (auto) 0 % 07/04/24 18:42 Nucleated RBCs # 0.0 /100WBC 07/04/24 18:42 Sodium 137 mmol/L (136-145) 07/04/24 18:42 Potassium 3.4 mmol/L (3.5-5.1) L 07/04/24 18:42 Chloride 98 mmol/L (98-107) 07/04/24 18:42 Carbon Dioxide 27 mmol/L (22-29) 07/04/24 18:42 Anion Gap 15.4 (5-19) 07/04/24 18:42 BUN 28 mg/dL (8-23) H 07/04/24 18:42 Creatinine 1.5 mg/dL (0.7-1.2) H 07/04/24 18:42 GFR Calculation Not Reportable 07/04/24 18:42 Glucose 124 mg/dL (65-115) H 07/04/24 18:42 Calculated Osmolality 291 mOsm/kg (285-295) 07/04/24 18:42 Calcium 8.8 mg/dL (8.5-10.5) 07/04/24 18:42 Total Bilirubin 1.2 mg/dL (0.15-1.2) 07/04/24 18:42 AST 56 U/L (0-40) H 07/04/24 18:42 ALT 38 U/L (0-41) 07/04/24 18:42 Alkaline Phosphatase 143 U/L (40-130) H 07/04/24 18:42 Total Protein 7.0 g/dL (6.6-8.7) 07/04/24 18:42 Albumin 3.7 g/dL (3.5-5.2) 07/04/24 18:42 Globulin 3.3 g/dL (1.3-4.6) 07/04/24 18:42 TSH 0.66 uIU/mL (0.27-4.20) 07/04/24 03:00 Urine Color Yellow (Yellow) 07/04/24 14:21 Urine Appearance Clear (CLEAR) 07/04/24 14:21 Urine pH 6.0 (5-7) 07/04/24 14:21 Ur Specific [place] 1.016 (1.005-1.030) 07/04/24 14:21 Urine Protein Trace (Negative) A 07/04/24 14:21 Urine Glucose (UA) Negative (Normal) 07/04/24 14:21 Urine Ketones Trace (Negative) 07/04/24 14:21 Urine Blood Trace (Negative) A 07/04/24 14:21 Urine Nitrate Negative (Negative) 07/04/24 14:21 Urine Bilirubin Negative (Negative) 07/04/24 14:21 Urine Urobilinogen 1.0 mg/dL (Negative) 07/04/24 14:21 Ur Leukocyte Esterase Negative (Negative) 07/04/24 14:21 Urine RBC 0-2 /hpf (0-2) 07/04/24 14:21 Urine WBC 0-5 /hpf (0-5) 07/04/24 14:21 Ur Squamous Epith Cells 0-5 /hpf (0-5) 07/04/24 14:21 Amorphous Sediment Not Reportable 07/04/24 14:21 Urine Bacteria None seen /hpf (NONE) 07/04/24 14:21 Hyaline Casts 3.30 /lpf 07/04/24 14:21 Salicylates < 0.3 mg/dL (3-10) L 07/04/24 03:00 Urine Opiates Screen Negative ng/mL (Negative) 07/04/24 14:21 Acetaminophen < 5.0 ug/mL (10-30) L 07/04/24 03:00 Ur Barbiturates Screen Negative ng/mL (Negative) 07/04/24 14:21 Ur Phencyclidine Scrn Negative ng/mL (Negative) 07/04/24 14:21 Ur Amphetamines Screen Negative ng/mL (Negative) 07/04/24 14:21 U Benzodiazepines Scrn Negative ng/mL (Negative) 07/04/24 14:21 Urine Cocaine Screen Negative ng/mL (Negative) 07/04/24 14:21 U Marijuana (THC) Screen Negative ng/mL (Negative) 07/04/24 14:21 Ethyl Alcohol 119 mg/dL (0-10) H 07/04/24 09:02 SARS-CoV-2 Ag (Rapid) negative (Negative) 07/04/24 14:41 Discharge Plan Discharge Patient Disposition: Xfer Psychiatric Hosp Clinical Impression: Suicidal ideation Condition: Stable Referrals: Marlena Nolan MD [Primary Care Provider] - Sign Out Sign Out Data: Patient Sign Out occurred on 07/04/24 at 06:24. Patient's care was discussed, and care was transferred from Keegan Mcwilliams DO to Ahsan Mosqueda DO. Coding Level of Care Code ED Machine Assistant for Alec Carranza
[2024-07-04] MEDS: promethazine 25 mg/mL SDV 1 mL IM (03:09)
[2024-07-04 03:54] VITALS: BP 95/76; PULSE 78; O2SAT 96
[2024-07-04 04:48] LABS: Basophils % 0.3 %; Eosinophils # 0.1 10^3/uL (0.0-0.8); Eosinophils % 0.9 %; Hematocrit 51.9 % (37-53); Lymphocytes # 2.5 10^3/uL (0.8-4.8); Lymphocytes % 22.8 %; Mean Corpuscular HGB Conc 35.1 g/dL (30-55); Mean Corpuscular Hemoglobin 31.7 pg (27-33); Mean Corpuscular Volume 90.4 fl (82-101); Mean Platelet Volume 10.4 fL (7.4-10.4); Monocytes # 0.8 10^3/uL (0.2-0.9); Monocytes % 7.8 %; Neutrophils # 7.26 10^3/uL (1.8-7.7); Neutrophils % 67.7 %; Nucleated Red Blood Cells % 0 %; Platelet Count 207 10^3/cmm (157-399); Red Blood Count 5.74 10^6/uL (3.85-5.65); Red Cell Distribution Width 14.7 % (12.1-15.1); White Blood Count 10.73 10^3/uL (3.29-11.43)
[2024-07-04 04:58] LABS: Alanine Aminotransferase 37 U/L (0-41); Alcohol Level 233 mg/dL (0-10); Alkaline Phosphatase 166 U/L (40-130); Aspartate Amino Transferase 61 U/L (0-40); Blood Urea Nitrogen 30 mg/dL (8-23); Carbon Dioxide 24 mmol/L (22-29); Chloride 100 mmol/L (98-107); Globulin 3.5 g/dL (1.3-4.6); Glucose 86 mg/dL (65-115); Osmolality Calculated 301 mOsm/kg (285-295); Sodium 143 mmol/L (136-145); Total Bilirubin 0.7 mg/dL (0.15-1.2); Total Protein 7.5 g/dL (6.6-8.7)
[2024-07-04 04:59] LABS: Acetaminophen < 5.0 ug/mL (10-30); Anion Gap 22.7 (5-19); Potassium 3.7 mmol/L (3.5-5.1); Salicylate < 0.3 mg/dL (3-10)
[2024-07-04] MEDS: sodium chloride 0.9% 1,000 ML 999 ML IV (05:36)
--- NOTE | 2024-07-04 05:36 | PC.NURSE ---
Pt. yelling and cursing the Rosa Elena while she was trying to restart his IV. Pt. was asked to calm down and treat her with respect if he wants to get taken care of , because yelling and screaming while pulling out the IV is not helping the situation.
--- NOTE | 2024-07-04 05:51 | PC.NURSE ---
Patient was reassessed by this nurse, this nurse asked the patient if he is suicidal, pt replies yes. This nurse informed the pt that his personal belongings will be removed and he will be dressed out in scrubs and await disposition to appropriate facility for condition. Pt states he has a large amount of money in his wallet. Hospital security, Praveen was requested to assist in counting money. Security, Praveen counted money in front of pt, this nurse, Yuval Carranza RN, and Maria Isabel ZURITA. Pt had total of $837 in wallet. Pt belongings secured and pt dressed into scrubs.
[2024-07-04 06:32] VITALS: BP 112/67; PULSE 59; O2SAT 96
--- NOTE | 2024-07-04 07:51 | PC.PHAR ---
PT DRUNK AND AGITATED-MED REC COMPLETED FROM MED LIST AT [facility] WITH FILL DATES AND DAYS SUPPLY.
[2024-07-04 09:26] LABS: Alcohol Level 119 mg/dL (0-10)
[2024-07-04 10:17] VITALS: BP 121/81; PULSE 75; O2SAT 96
--- NOTE | 2024-07-04 10:39 | PC.NURSE ---
pt calm and cooperative at this time, resting in room 9 with even and unlabored respirations. PSA outside room 9
--- NOTE | 2024-07-04 10:40 | PC.NURSE ---
this nurse re-assessed pt status, pt states I hope I can't hurt myself, but you never know . Dr. Mosqueda notified
[2024-07-04 13:39] VITALS: BP 126/93; PULSE 65; O2SAT 97
--- NOTE | 2024-07-04 13:51 | PC.NURSE ---
HS witnessed Security count $837 in cabrera that was located in patient's wallet. Cabrera was then placed into sealed envelope, and was then signed for by the patient stating the amount counted was correct. Yassine LACEY RN second witness to count.
--- NOTE | 2024-07-04 13:57 | XRR_ITS ---
PROCEDURE INFORMATION: Exam: XR Chest Exam date and time: 07/04/2024 2:19 PM Age: 74 years old Clinical indication: Shortness of breath; Additional info: Transfer TECHNIQUE: Imaging protocol: Radiologic exam of the chest. Views: 1 view. COMPARISON: CR (CHEST, ) 06/24/2023 4:42 PM FINDINGS: Lungs: Bibasilar infiltrates. Pleural spaces: Unremarkable. No pleural effusion. No pneumothorax. Heart/Mediastinum: Unremarkable. No cardiomegaly. Bones/joints: Unremarkable. XR/XR chest 1V portable [id number] IMPRESSION: Bibasilar infiltrates.
--- NOTE | 2024-07-04 14:18 | ECG_ITS ---
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 Measurements Intervals [place] Rate: 54 P: 55 IA: 176 QRS: -20 QRSD: 73 T: -59 QT: 411 QTc: 393 Interpretive Statements SINUS BRADYCARDIA LOW QRS VOLTAGE IN PRECORDIAL LEADS [QRS DEFLECTION < 1.0 mV IN CHEST LEADS] ST DEVIATION AND MODERATE T-WAVE ABNORMALITY, CONSIDER ANTEROLATERAL ISCHEMIA [-0.1+ mV T-WAVE IN V3-V6] ST DEVIATION AND MODERATE T-WAVE ABNORMALITY, CONSIDER INFERIOR ISCHEMIA [-0.1+ mV T-WAVE IN II/aVF] Compared to ECG 06/24/2023 16:50:38 Low QRS voltage now present T-wave abnormality now present Left-axis deviation no longer present Incomplete right bundle-branch block no longer present Electronically Signed On 07-04-2024 15:29:47 CDT by Eduardo Earl M.D. [id number]
[2024-07-04 14:27] LABS: Charge for UA Resulting for Rev
[2024-07-04 14:34] LABS: Bilirubin Urine Negative (Negative); Blood Urine Trace (Negative); Glucose Urine UA Negative (Normal); Ketones Urine Trace (Negative); Leukocyte Esterase Urine Negative (Negative); Nitrate Urine Negative (Negative); Protein Urine Trace (Negative); Specific Gravity, Urine 1.016 (1.005-1.030); Urine Appearance Clear (CLEAR); Urine Color Yellow (Yellow)
[2024-07-04 14:39] LABS: Bacteria Urine None Seen /hpf; RBC Urine 0-2 /hpf (0-2); Squamous Epithelial Cell Urine 0-5 /hpf (0-5); WBC Urine 0-5 /hpf (0-5)
[2024-07-04 14:43] LABS: Amphetamines Screen Urine Negative (Negative); Barbiturates Screen Urine Negative (Negative); Benzodiazepines Screen Urine Negative (Negative); Cocaine Screen Urine Negative (Negative); Opiate Screen Urine Negative (Negative); PCP Screen Urine Negative (Negative); THC Screen Urine Negative (Negative)
--- NOTE | 2024-07-04 14:52 | PC.NURSE ---
this nurse, security, and housekeeping room inspector at bedside to count dhillon in pt belongings. dhillon sealed in envelope and taken by Security. pt aware of this, was alert and present during count.
[2024-07-04 15:17] LABS: SARS Covid-2 Antigen negative (Negative)
[2024-07-04 15:26] LABS: Thyroid Stimulating Hormone 0.66 uIU/mL (0.27-4.20)
--- NOTE | 2024-07-04 18:16 | PC.NURSE ---
pt extremely agitated, yelling. this nurse attempted verbal deescalation. pt re-directed to room. Dr. Mosqueda notified.
--- NOTE | 2024-07-04 18:17 | XRR_ITS ---
PROCEDURE INFORMATION: Exam: XR Chest Exam date and time: 07/04/2024 6:33 PM Age: 74 years old Clinical indication: Patient HX: Abnormal cxr; Bibasilar infiltrates; ETOH; AMS TECHNIQUE: Imaging protocol: Radiologic exam of the chest. Views: 2 views. COMPARISON: CR XR chest 1V portable [id number] 07/04/2024 2:19 PM FINDINGS: Lungs: Central vascular prominence with bilateral interstitial opacities likely representing mild pulmonary edema. No focal consolidations. Pleural spaces: Unremarkable. No pleural effusion. No pneumothorax. Heart/Mediastinum: Cardiomegaly. Bones/joints: Unremarkable. XR/XR chest 2V* [id number] IMPRESSION: Central vascular prominence with bilateral interstitial opacities likely representing mild pulmonary edema. No focal consolidations.
[2024-07-04 18:49] LABS: Basophils % 0.4 %; Eosinophils # 0.1 10^3/uL (0.0-0.8); Eosinophils % 0.7 %; Lymphocytes # 1.4 10^3/uL (0.8-4.8); Lymphocytes % 14.1 %; Mean Corpuscular HGB Conc 34.9 g/dL (30-55); Mean Corpuscular Hemoglobin 31.9 pg (27-33); Mean Corpuscular Volume 91.4 fl (82-101); Mean Platelet Volume 9.5 fL (7.4-10.4); Monocytes # 0.8 10^3/uL (0.2-0.9); Monocytes % 7.8 %; Neutrophils # 7.51 10^3/uL (1.8-7.7); Neutrophils % 76.3 %; Nucleated Red Blood Cells % 0 %; Platelet Count 161 10^3/cmm (157-399); Red Blood Count 5.36 10^6/uL (3.85-5.65); Red Cell Distribution Width 14.6 % (12.1-15.1); White Blood Count 9.85 10^3/uL (3.29-11.43)
[2024-07-04 19:09] LABS: Alanine Aminotransferase 38 U/L (0-41); Albumin Level 3.7 g/dL (3.5-5.2); Alkaline Phosphatase 143 U/L (40-130); Anion Gap 15.4 (5-19); Aspartate Amino Transferase 56 U/L (0-40); Blood Urea Nitrogen 28 mg/dL (8-23); Calcium 8.8 mg/dL (8.5-10.5); Carbon Dioxide 27 mmol/L (22-29); Chloride 98 mmol/L (98-107); Creatinine Clr Calc Pharmacy 51.3959; Globulin 3.3 g/dL (1.3-4.6); Glucose 124 mg/dL (65-115); Osmolality Calculated 291 mOsm/kg (285-295); Potassium 3.4 mmol/L (3.5-5.1); Sodium 137 mmol/L (136-145); Total Bilirubin 1.2 mg/dL (0.15-1.2)
--- NOTE | 2024-07-04 20:22 | PC.NURSE ---
96 Hour Involuntary Hold Patient Rights have been read to the patient and a copy of the same has been given to him. Safety Advisor Kelly Ly was present at bedside at the time of presentation of Rights.
[2024-07-04] MEDS: CLONazepam 0.5 mg Tablet PO (22:36)
[2024-07-04] MEDS: quetiapine 25 mg Tablet PO (22:36)
[2024-07-04] MEDS: trazodone 100 mg Tablet PO (22:36)
[2024-07-04 23:57] VITALS: BP 124/70; PULSE 70; RESP 18; O2SAT 94
[2024-07-05 02:20] VITALS: BP 146/66; PULSE 64; RESP 18; O2SAT 94
[2024-07-05] MEDS: LORazepam 2 mg/mL INJ 1 mL IM (09:04)
--- NOTE | 2024-07-05 09:04 | PC.NURSE ---
pt report given to [facility]. pt belongings, including sealed envelope containing $837.00 sent with EMS crew. pt witnessed envelope being sent with crew. Security, this nurse present. pt left facility approx @[phone]
[2024-07-05 09:06] VITALS: BP 146/66; PULSE 64; RESP 18; O2SAT 94
== END 2024-07-05 09:07 ==
PROVIDERS: Emergency Medicine; Emergency Provider Family Medicine; PCP Family Medicine
DX: R45.851 Suicidal ideations (principal); F10.229 Alcohol dependence with intoxication, unspecified; Y90.5 Blood alcohol level of 100-119 mg/100 ml; Z72.0 Tobacco use
CPT/HCPCS: 36415; 71045; 71046; 80053; 80306; 80307; 81003; 81015; 84443; 85025; 87040; 87426; 93005; 96372; 99285; J2060; J2550; J7030

== ENCOUNTER 2024-10-09 21:37 | Emergency (ER) | payer MEDICAID, SELFPAY ==
--- NOTE | 2024-10-09 21:38 | XRR_ITS ---
PROCEDURE INFORMATION: Exam: XR Chest Exam date and time: 10/09/2024 9:44 PM Age: 74 years old Clinical indication: Other: AMS; Additional info: Psych TECHNIQUE: Imaging protocol: Radiologic exam of the chest. Views: 1 view. COMPARISON: CR XR chest 2V* [id number] 07/04/2024 6:33 PM FINDINGS: Lungs: Bibasilar atelectasis Pleural spaces: Unremarkable. No pleural effusion. No pneumothorax. Heart/Mediastinum: Cardiomegaly . Vasculature: Ectatic thoracic aorta. Bones/joints: Unremarkable. XR/XR chest 1V portable [id number] IMPRESSION: Bibasilar atelectasis
[2024-10-09 21:46] VITALS: BP 110/74; PULSE 106; RESP 20; TEMP 36.6; O2SAT 96; BMI 32.8
--- NOTE | 2024-10-09 21:55 | ECG_ITS ---
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 Measurements Intervals [place] Rate: 114 P: 43 LA: 190 QRS: -49 QRSD: 97 T: 86 QT: 323 QTc: 446 Interpretive Statements SINUS TACHYCARDIA LEFT ANTERIOR FASCICULAR BLOCK [QRS AXIS <= -45, QR IN I, RS IN II] LEFT VENTRICULAR HYPERTROPHY AND ST-T CHANGE [VOLTAGE CRITERIA PLUS ST/T ABNORMALITY].POSSIBLE ANTEROSEPTAL MYOCARDIAL INFARCTION , PROBABLY OLD [30 ms Q WAVE IN V1-V4] Compared to ECG 07/04/2024 14:18:12 Left anterior fascicular block now present.Left ventricular hypertrophy now present ST (T wave) deviation now present Myocardial infarct finding now present.Sinus bradycardia no longer present T-wave abnormality no longer present.Possible ischemia no longer present Electronically Signed On 10-11-2024 15:54:22 SAW FEEDER by Madelin Segundo M.D. [id number]
--- NOTE | 2024-10-09 21:56 | ED_ITS ---
HPI - General Adult General: Chief complaint: General Medical Stated complaint: Aggresive Behavior Time Seen by Provider: 10/09/24 21:38 History of Present Illness: 74-year-old man who presents emergency r oom by ambulance. Per EMS and the patient he was supposed to be being admitted into a halfway. His had been admitted to a halfway. Apparently when he got there he decided he did not want to and he became angry at staff and walked out. EMS reports they picked him up in front of a business here in town. He is alert awake and oriented and says he just wants to go to a hotel and sleep and he does not want to go to the halfway. Related Data Home Medications Medication Instructions Recorded Confirmed metoprolol tartrate 50 mg tablet 50 mg PO BID 01/22/23 07/04/24 tamsulosin 0.4 mg capsule 0.4 mg PO QPM 07/04/24 07/04/24 Previous Rx's Medication Instructions Recorded quetiapine 25 mg tablet (Seroquel) 25 mg PO BEDTIME #30 tabs 04/15/24 trazodone 100 mg tablet 100 mg PO BEDTIME PRN insomnia #30 04/15/24 tabs bupropion HCl 200 mg tablet,12 hr 200 mg PO QAM #30 tabs 05/20/24 sustained-release (Wellbutrin SR) hydroxyzine pamoate 25 mg capsule 25 mg PO DAILY PRN anxiety #30 caps 06/04/24 (Vistaril) clonazepam 0.5 mg tablet (Klonopin) 0.5 mg PO .7:30 pm #30 tabs 07/04/24 Allergies Allergy/AdvReac Type Severity Reaction Status Date / Time ketorolac Allergy Unknown Unknown Verified 05/20/24 13:35 naproxen Allergy Unknown Unknown Verified 05/20/24 13:35 vortioxetine Allergy Unknown Unknown Verified 05/20/24 13:35 [facility] Review of Systems Narrative: Constitutional symptoms: Negative except as documented in HPI. Skin symptoms: Negative except as documented in HPI. Eye symptoms: Negative except as documented in HPI. ENMT symptoms: Negative except as documented in HPI. Respiratory symptoms: Negative except as documented in HPI. Cardiovascular symptoms: Negative except as documented in HPI. Gastrointestinal symptoms: Negative except as documented in HPI. Genitourinary symptoms: Negative except as documented in HPI. Musculoskeletal symptoms: Negative except as documented in HPI. Neurologic symptoms: Negative except as documented in HPI. Psychiatric symptoms: Negative except as documented in HPI. Endocrine symptoms: Negative except as documented in HPI. [facility] ED PFSH: Medical History (Updated 10/09/24 @ 22:29 by Mirta Shah MD) Alcohol use disorder, severe, dependence Alcohol dependence in remission in early remission, last alcohol use 06/25/23 Psychiatric care Heavy cigarette smoker Chronic post-traumatic stress disorder Bipolar 1 disorder, depressed, mild Family History Other Cancer Social History Smoking and tobacco/nicotine status: current every day tobacco/nicotine user Alcohol intake: current Physical Exam Narrative: EXAM NARRATIVE: General: Alert, no acute distress. Skin: Warm, dry. Head: Normocephalic, atraumatic. Neck: Supple, trachea midline. Eye: Extraocular movements are intact. Ears, nose, mouth and throat: mucosa moist. Cardiovascular: Regular, Normal peripheral perfusion. Respiratory: Lungs are clear to auscultation, respirations are non-labored, breath sounds are equal, Symmetrical chest wall expansion. Gastrointestinal: Soft, Nontender, Non distended Musculoskeletal: Normal ROM, no deformity. Neurological: Alert and oriented, No focal neurological deficit observed. Psychiatric: Cooperative, appropriate mood & affect. Course Vital Signs: Vital signs: Vital Signs Temperature 98 F 10/09/24 21:46 Pulse Rate 106 H 10/09/24 21:46 Respiratory Rate 20 H 10/09/24 21:46 Blood Pressure 110/74 10/09/24 21:46 Pulse Oximetry 96 10/09/24 21:46 MDM - General Adult Medical Decision Making Patient remains alert and oriented. There has been no legal paperwork presented from the halfway or anywhere else. He says he wants to leave and I do not feel that I could hold him against his will here. Assessment and plan: Feared complaint without diagnosis - Discharged home - Discussed plan with patient. Answered any questions. - Evaluation and treatment of this problem were appropriate in the emergency setting. All radiology interpretation(s) finalized by discharge Discharge Plan Discharge Patient Disposition: Home Clinical Impression: Feared complaint without diagnosis Condition: Stable Prescriptions: No Action bupropion HCl [Wellbutrin SR] 200 mg tablet sustained-release 12 hr 200 mg PO QAM Qty: 30 6RF metoprolol tartrate 50 mg tablet 50 mg PO BID quetiapine [Seroquel] 25 mg tablet 25 mg PO BEDTIME Qty: 30 6RF trazodone 100 mg tablet 100 mg PO BEDTIME PRN (Reason: insomnia) Qty: 30 6RF hydroxyzine pamoate [Vistaril] 25 mg capsule 25 mg PO DAILY PRN (Reason: anxiety) Qty: 30 3RF clonazepam [Klonopin] 0.5 mg tablet 0.5 mg PO .7:30 pm Qty: 30 0RF Rx Instructions: Take one tablet at 7:30 pm tamsulosin 0.4 mg capsule 0.4 mg PO QPM Discharge Orders: Discharge ED (Routine); Ordered 10/09/24 Ordered By: Mirta Shah Referrals: Marlena Nolan MD [Primary Care Provider] - Discharge Diet: Usual diet Discharge Activity: Increase activity as tolerated Patient Instructions: Opioid Safety, Pain Management Activity Restrictions/Additional Instructions: Thank you for choosing [facility] for your healthcare needs today. Please realize this is an emergency room and that we are providing you with a medical screening exam and this may not be complete and all inclusive of all the testing and or work up that you may need to determine your ailment or severity of your illness. You have been screened and evaluated and felt safe for discharge. Health conditions do change or evolve sometimes and as such it is important that you follow up with your Primary Doctor to be re checked, 3-5 days is a general good time frame for follow up. You are always welcome to return to the ED for re assessment if your symptoms are worsening or you have new concerns Coding Level of Care Code ED Department Assistant for Alec Carranza
--- NOTE | 2024-10-09 23:03 | PC.NURSE ---
[facility] and what to do in this situation. The patient is alert, oriented and shows signs of full capacity to make his own decisions. Richard munson is the portal administrator assigned to the patient and states that he is new to him. I have explained that the patient has no signs or symptoms of SI, HI or aggressive behavior and that we have no cause to hold him, and he states that if we have no reason to hold him than we can discharge him.
== END 2024-10-09 23:24 | disposition home or self-care (01) ==
PROVIDERS: Emergency Provider Emergency Medicine; PCP Family Medicine
DX: Z03.89 Encounter for observation for other suspected diseases and conditions ruled out (principal); Z72.0 Tobacco use
CPT/HCPCS: 71045; 93005; 99284

== ENCOUNTER 2024-10-14 06:24 | Emergency (ER) | payer MEDICAID, SELFPAY ==
[2024-10-14 06:26] VITALS: BP 136/98; PULSE 120; RESP 18; TEMP 36.7; O2SAT 97; BMI 34.4
[2024-10-14 06:36] VITALS: BP 136/98; PULSE 120; O2SAT 96
--- NOTE | 2024-10-14 06:39 | XR_ITS ---
WS: [id number] Exam: XR chest 1V portable [id number] Date/Time of Exam: 10/14/2024 6:54 AM Reason For Exam: dyspnea/cough Comparison 10/09/2024. Bibasilar plaque atelectasis unchanged. No consolidating infiltrates or pneumothorax. No pleural effu sions. Normal cardiomediastinal silhouette. Bony structures are intact. XR/XR chest 1V portable [id number] IMPRESSION: 1. Bibasal plaque atelectasis unchanged. No acute process noted.
--- NOTE | 2024-10-14 06:40 | CTR_ITS ---
PROCEDURE INFORMATION: Exam: CT Head Without Contrast Exam date and time: 10/14/2024 7:16 AM Age: 74 years old Clinical indication: Altered mental status/memory loss; Additional info: AMS TECHNIQUE: Imaging protocol: Computed tomography of the head without contrast. Radiation optimization: All CT scans at this facility use at least one of these dose optimization techniques: automated exposure control; mA and/or kV adjustment per patient size (includes targeted exams where dose is matched to clinical indication); or iterative reconstruction. COMPARISON: CT head wo con* [id number] 06/24/2023 6:26 PM RADIATION DOSE METRICS: Total DLP (mGy-cm): 2236.13 FINDINGS: Brain: There is mild small vessel disease. There is disproportionate temporal lobe atrophy. There is no evidence of acute parenchymal hemorrhage, extra-axial collection, or acute infarction. There is no mass effect, midline shift, or downward herniation. Cerebral ventricles: No ventriculomegaly. Paranasal sinuses: Visualized sinuses are unremarkable. No fluid levels. Mastoid air cells: Visualized mastoid air cells are well aerated. Bones: Unremarkable. No acute fracture. Soft tissues: Unremarkable. CT/CT head wo con* [id number] IMPRESSION: 1. No evidence of acute intracranial process. 2. Mild small vessel disease. 3. Disproportionate temporal lobe atrophy.
--- NOTE | 2024-10-14 06:44 | ECG_ITS ---
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1950 Requested By: Ahsan Saleh Order Number: [id number] Reading MD: CR OCAMPO Measurements Intervals [place] Rate: 121 P: 67 WY: 170 QRS: -40 QRSD: 74 T: 112 QT: 298 QTc: 424 Interpretive Statements SINUS TACHYCARDIA WITH FREQUENT SUPRAVENTRICULAR PREMATURE COMPLEXES LEFT AXIS DEVIATION [QRS AXIS < -30] ANTEROSEPTAL MYOCARDIAL INFARCTION , OF INDETERMINATE AGE [40+ ms Q WAVE IN V1-V4] Compared to ECG 10/09/2024 21:55:34 Left-axis deviation now present Left anterior fascicular block no longer present Left ventricular hypertrophy no longer present ST (T wave) deviation no longer present Myocardial infarct finding still present Electronically Signed On 10-15-2024 17:34:35 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
--- NOTE | 2024-10-14 06:45 | ED_ITS ---
HPI - Altered Mental Status 2 General: Chief Complaint: Altered Mental Status Stated Complaint: AMS Time Seen by Provider: 10/14/24 06:37 History of Present Illness: 74-year-old male presents to the emergen cy room via EMS from a local motel. Patient is highly intoxicated and belligerent. Necking heavily all night. He denies any suicidal or homicidal ideation. He denies chest pain or abdominal pain. Patient is adamant that he is in DTs and needs medication for it now. Related Data Home Medications Medication Instructions Recorded Confirmed metoprolol tartrate 50 mg tablet 50 mg PO BID 01/22/23 10/14/24 tamsulosin 0.4 mg capsule 0.4 mg PO QPM 07/04/24 10/14/24 metoprolol tartrate 25 mg tablet 12.5 mg PO BID 10/14/24 10/14/24 pantoprazole 20 mg tablet,delayed 20 mg PO DAILY 10/14/24 10/14/24 release (Protonix) quetiapine 100 mg tablet 100 mg PO BEDTIME 10/14/24 10/14/24 quetiapine 50 mg tablet 50 mg PO .AFTER LUNCH 10/14/24 10/14/24 ramelteon 8 mg tablet 8 mg PO BEDTIME PRN Sleep 10/14/24 10/14/24 trazodone 150 mg tablet 150 mg PO QPM 10/14/24 10/14/24 Previous Rx's Medication Instructions Recorded bupropion HCl 200 mg tablet,12 hr 200 mg PO QAM #30 tabs 05/20/24 sustained-release (Wellbutrin SR) hydroxyzine pamoate 25 mg capsule 25 mg PO DAILY PRN anxiety #30 caps 06/04/24 (Vistaril) Allergies Allergy/AdvReac Type Severity Reaction Status Date / Time ketorolac Allergy Unknown Unknown Verified 05/20/24 13:35 naproxen Allergy Unknown Unknown Verified 05/20/24 13:35 vortioxetine Allergy Unknown Unknown Verified 05/20/24 13:35 [From [employer]] Review of Systems 2 Const: Denies: fever(s) or chills Card: Denies: chest pain Resp: Denies: dyspnea GI: Denies: abdominal pain : Reports: dysuria Musc: Denies: neck pain or back pain Skin/Breast: Denies: rash PFSH ED 2 PFSH: Medical History Alcohol use disorder, severe, dependence Alcohol dependence in remission in early remission, last alcohol use 06/25/23 Psychiatric care Heavy cigarette smoker Chronic post-traumatic stress disorder Bipolar 1 disorder, depressed, mild Family History Other Cancer Social History Smoking and tobacco/nicotine status: current every day tobacco/nicotine user Alcohol intake: current Physical Exam 2 Const: GENERAL APPEARANCE: not cooperative and not well kempt O RIENTATION/CONSCIOUSNESS: Yes awake HENMT: COMMON NORMALS: normocephalic, atraumatic and hearing grossly normal bilaterally HEAD & SCALP: normocephalic and atraumatic Resp: COMMON NORMALS: normal respiratory effort, No retractions, No use of accessory muscles and clear to auscultation bilaterally AUSCULTATION: clear to auscultation bilaterally Cardio: COMMON NORMALS: regular rhythm and No murmurs present (Cardio) R ATE: tachycardic RHYTHM: regular rhythm GI: COMMON NORMALS: Soft to palpation and No hepatosplenomegaly present A USCULTATION: Yes normoactive bowel sounds PALPATION: Yes Soft to palpation, No Tenderness to palpation present (GI), No Guarding due to palpation present (GI) and Yes No hepatosplenomegaly present Extremity: COMMON NORMALS: normal to inspection, capillary refill normal, no clubbing, cyanosis or edema, no calf tenderness and no pedal edema Psych: APPEARANCE: No well kempt ATTITUDE: Yes uncooperative, Yes aggressive and Yes hostile Skin: COMMON NORMALS: no rashes or lesions noted GENERAL SKIN EXAM: no rashes or lesions noted Course 2 Vital Signs: Vital signs: Vital Signs Temperature 98.1 F 10/14/24 06:26 Pulse Rate 120 H 10/14/24 06:36 Respiratory Rate 18 10/14/24 06:26 Blood Pressure 136/98 10/14/24 06:36 Pulse Oximetry 96 10/14/24 06:36 Oxygen Delivery Me thod Room Air 10/14/24 06:36 MDM - Altered Mental Status Medical Decision Making Initially patient arrived intoxicated and extremely belligerent. Verbally abusive and aggressive with staff. Despite forceful redirection this behavior persisted. We offered on multiple occasions to help him clean up after he had defecated on himself initially he was refusing. Ultimately staff was able to get him to allow them to help him. After time patient began to sober up and began to be more agreeable. He is expressing the desire to go home he did receive some fluids. He had a significant anion gap and lactic acidosis of believe these are related to his alcohol use. He states he is feeling better and is demanding to go home at this point. CT of his head did not show any significant abnormality chest x-ray showed unchanged bilateral atelectasis. His vital signs have been stable. Discharge patient home encouraged him not to drink any further alcohol. Also encouraged him to follow-up at [facility] to get assistance for substance abuse. Time of discharge to reassess the patient he is alert and understanding enough to be discharged at his request. If he has any worsening or change symptoms he was invited to return Medical Records I reviewed the patient's medical records. Lab Data I reviewed the patient's lab results. 10/14/24 06:32 10/14/24 06:32 Radiology Impressions Chest X-Ray 10/14/24 06:39 IMPRESSION: 1. Bibasal plaque atelectasis unchanged. No acute process noted. Head CT 10/14/24 06:40 IMPRESSION: 1. No evidence of acute intracranial process. 2. Mild small vessel disease. 3. Disproportionate temporal lobe atrophy. Laboratory Results WBC 14.19 10^3/uL (3.29-11.43) H 10/14/24 06:32 RBC 4.98 10^6/uL (3.85-5.65) 10/14/24 06:32 Hgb 15.80 g/dL (11.27-16.99) 10/14/24 06:32 Hct 46.1 % (37-53) 10/14/24 06:32 MCV 92.6 fl (82-101) 10/14/24 06:32 MCH 31.7 pg (27-33) 10/14/24 06:32 MCHC 34.3 g/dL (30-55) 10/14/24 06:32 RDW 13.7 % (12.1-15.1) 10/14/24 06:32 Plt Count 323 10^3/cmm (157-399) 10/14/24 06:32 MPV 9.6 fL (7.4-10.4) 10/14/24 06:32 Neut % (Auto) 82.1 % 10/14/24 06:32 Lymph % (Auto) 6.3 % 10/14/24 06:32 [place] % (Auto) 10.9 % 10/14/24 06:32 Eos % (Auto) 0.1 % 10/14/24 06:32 Baso % (Auto) 0.2 % 10/14/24 06:32 Neut # (Auto) 11.65 10^3/uL (1.8-7.7) H 10/14/24 06:32 Lymph # (Auto) 0.9 10^3/uL (0.8-4.8) 10/14/24 06:32 [place] # (Auto) 1.5 10^3/uL (0.2-0.9) H 10/14/24 06:32 Eos # (Auto) 0.0 10^3/uL (0.0-0.8) 10/14/24 06:32 Baso # (Auto) 0.0 10^3/uL (0.0-0.1) 10/14/24 06:32 Nucleated RBC % (auto) 0 % 10/14/24 06:32 Nucleated RBCs # 0.0 /100WBC 10/14/24 06:32 Sodium 145 mmol/L (136-145) 10/14/24 06:32 Potassium 4.4 mmol/L (3.5-5.1) 10/14/24 06:32 Chloride 99 mmol/L (98-107) 10/14/24 06:32 Carbon Dioxide 17 mmol/L (22-29) L 10/14/24 06:32 Anion Gap 33.4 (5-19) H 10/14/24 06:32 BUN 72 mg/dL (8-23) H 10/14/24 06:32 Creatinine 2.7 mg/dL (0.7-1.2) H 10/14/24 06:32 GFR Calculation Not Reportable 10/14/24 06:32 Glucose 104 mg/dL (65-115) 10/14/24 06:32 Calculated Osmolality 321 mOsm/kg (285-295) H 10/14/24 06:32 Calcium 8.3 mg/dL (8.5-10.5) L 10/14/24 06:32 Total Bilirubin 0.8 mg/dL (0.15-1.2) 10/14/24 06:32 AST 75 U/L (0-40) H 10/14/24 06:32 ALT 41 U/L (0-41) 10/14/24 06:32 Alkaline Phosphatase 127 U/L (40-130) 10/14/24 06:32 Ammonia 23 umol/L (16-60) 10/14/24 06:53 Total Protein 7.9 g/dL (6.6-8.7) 10/14/24 06:32 Albumin 4.5 g/dL (3.5-5.2) 10/14/24 06:32 Globulin 3.4 g/dL (1.3-4.6) 10/14/24 06:32 Urine Color Yellow (Yellow) 10/14/24 08:44 Urine Appearance Clear (CLEAR) 10/14/24 08:44 Urine pH 5.0 (5-7) 10/14/24 08:44 Ur Specific [place] 1.014 (1.005-1.030) 10/14/24 08:44 Urine Protein Trace (Negative) A 10/14/24 08:44 Urine Glucose (UA) Negative (Normal) 10/14/24 08:44 Urine Ketones 1+ (Negative) H 10/14/24 08:44 Urine Blood Trace (Negative) A 10/14/24 08:44 Urine Nitrate Negative (Negative) 10/14/24 08:44 Urine Bilirubin Negative (Negative) 10/14/24 08:44 Urine Urobilinogen 0.2 mg/dL (Negative) 10/14/24 08:44 Ur Leukocyte Esterase Negative (Negative) 10/14/24 08:44 Urine RBC 0-4 /hpf (0-2) H 10/14/24 08:44 Urine WBC 0-4 /hpf (0-5) H 10/14/24 08:44 Ur Squamous Epith Cells 0-4 /hpf (0-5) H 10/14/24 08:44 Amorphous Sediment Not Reportable 10/14/24 08:44 Urine Bacteria None /hpf (NONE) 10/14/24 08:44 Hyaline Casts 10-15 /lpf H 10/14/24 08:44 Coarse Granular Casts 0-4 /lpf H 10/14/24 08:44 Urine Mucus 1+ /hpf 10/14/24 08:44 Salicylates < 0.3 mg/dL (3-10) L 10/14/24 06:32 Urine Opiates Screen Negative ng/mL (Negative) 10/14/24 08:44 Acetaminophen < 5.0 ug/mL (10-30) L 10/14/24 06:32 Ur Barbiturates Screen Negative ng/mL (Negative) 10/14/24 08:44 Ur Phencyclidine Scrn Negative ng/mL (Negative) 10/14/24 08:44 Ur Amphetamines Screen Negative ng/mL (Negative) 10/14/24 08:44 U Benzodiazepines Scrn Negative ng/mL (Negative) 10/14/24 08:44 Urine Cocaine Screen Negative ng/mL (Negative) 10/14/24 08:44 U Marijuana (THC) Screen Negative ng/mL (Negative) 10/14/24 08:44 Ethyl Alcohol 177 mg/dL (0-10) H 10/14/24 06:32 All radiology interpretation(s) finalized by discharge Discharge Plan Discharge Patient Disposition: Home Clinical Impression: Alcohol use disorder, severe, dependence, Alcoholic intoxication, Acute kidney injury Condition: Stable Prescriptions: No Action bupropion HCl [Wellbutrin SR] 200 mg tablet sustained-release 12 hr 200 mg PO QAM Qty: 30 6RF metoprolol tartrate 50 mg tablet 50 mg PO BID hydroxyzine pamoate [Vistaril] 25 mg capsule 25 mg PO DAILY PRN (Reason: anxiety) Qty: 30 3RF tamsulosin 0.4 mg capsule 0.4 mg PO QPM quetiapine 100 mg tablet 100 mg PO BEDTIME pantoprazole [Protonix] 20 mg Tablet,Delayed Release (Dr/Ec) 20 mg PO DAILY trazodone 150 mg Tablet 150 mg PO QPM metoprolol tartrate 25 mg Tablet 12.5 mg PO BID ramelteon 8 mg Tablet 8 mg PO BEDTIME PRN (Reason: Sleep) quetiapine 50 mg Tablet 50 mg PO .AFTER LUNCH Discharge Orders: Discharge ED (Routine); Ordered 10/14/24 Ordered By: Ahsan Mosqueda Referrals: Marlena Nolan MD [Primary Care Provider] - Patient Instructions: Alcohol Intoxication (ED), Abuse of Alcohol (ED), Opioid Safety, Pain Management Activity Restrictions/Additional Instructions: Thank you for choosing [facility] for your healthcare needs today. It is very important that you follow up as instructed or that you return to the Emergency Department should you have concerns or if your condition changes or worsens in any way. You are seen in the emergency room with report of altered mental status and nausea vomiting. This was caused by your alcohol drinking. We did give you IV fluids. You had an acute kidney injury this needs to be reevaluated by your primary care doctor within the next 2 to 3 days. Strongly recommend not drinking any alcohol Coding Level of Care Code ED Freight Car Inspector for Alec Carranza
[2024-10-14 07:01] LABS: Basophils % 0.2 %; Eosinophils % 0.1 %; Hematocrit 46.1 % (37-53); Lymphocytes # 0.9 10^3/uL (0.8-4.8); Lymphocytes % 6.3 %; Mean Corpuscular HGB Conc 34.3 g/dL (30-55); Mean Corpuscular Hemoglobin 31.7 pg (27-33); Mean Corpuscular Volume 92.6 fl (82-101); Mean Platelet Volume 9.6 fL (7.4-10.4); Monocytes # 1.5 10^3/uL (0.2-0.9); Monocytes % 10.9 %; Neutrophils # 11.65 10^3/uL (1.8-7.7); Neutrophils % 82.1 %; Nucleated Red Blood Cells % 0 %; Platelet Count 323 10^3/cmm (157-399); Red Blood Count 4.98 10^6/uL (3.85-5.65); Red Cell Distribution Width 13.7 % (12.1-15.1); White Blood Count 14.19 10^3/uL (3.29-11.43)
[2024-10-14 07:13] LABS: Alanine Aminotransferase 41 U/L (0-41); Albumin Level 4.5 g/dL (3.5-5.2); Alcohol Level 177 mg/dL (0-10); Alkaline Phosphatase 127 U/L (40-130); Aspartate Amino Transferase 75 U/L (0-40); Blood Urea Nitrogen 72 mg/dL (8-23); Calcium 8.3 mg/dL (8.5-10.5); Carbon Dioxide 17 mmol/L (22-29); Chloride 99 mmol/L (98-107); Creatinine Clr Calc Pharmacy 27.4259; Globulin 3.4 g/dL (1.3-4.6); Glucose 104 mg/dL (65-115); Osmolality Calculated 321 mOsm/kg (285-295); Sodium 145 mmol/L (136-145); Total Bilirubin 0.8 mg/dL (0.15-1.2); Total Protein 7.9 g/dL (6.6-8.7)
[2024-10-14 07:15] LABS: Acetaminophen < 5.0 ug/mL (10-30); Anion Gap 33.4 (5-19); Potassium 4.4 mmol/L (3.5-5.1); Salicylate < 0.3 mg/dL (3-10)
[2024-10-14 07:20] LABS: Ammonia 23 umol/L (16-60)
--- NOTE | 2024-10-14 07:28 | PC.NURSE ---
PATIENT VERBALLY AGGRESSIVE WITH STAFF. PATIENT YELLS AT CHARGE NURSE, TRACEE, AFTER COMING OUT OF ROOM STATING THAT HEY! I NEED TO SHIT. TRACEE TELLS PATIENT TO GIVE HER ONE SECOND AND SHE WILL BE RIGHT BACK. PATIENT STATES I DON'T LIKE YOU BUT I'M NOT GOING TO SHIT MY PANTS BECAUSE OF IT. SECOND NURSE, RAZ, ENTERS ROOM AND PATIENT CONTINUES TO BE VERBALLY AGGRESSIVE WITH BOTH NURSES. PATIENT STATES I DON'T LIKE EITHER ONE OF YOU. NURSES STATE THEY ARE BOTH HERE TO HELP HIM TO THE RESTROOM. THIS NURSE ENTERS THE ROOM TO HELP WITH AGGRESSIVENESS. PATIENT CALLS THIS NURSE A FUCKING BITCH. PROVIDER ENTERED ROOM AND SPOKE WITH PATIENT. PATIENT ALSO TELLS PROVIDER YOU HUSH.
--- NOTE | 2024-10-14 08:10 | PC.NURSE ---
PT REFUSED HELP TO THE RESTROOM STATES HE DOES NOT LIKE THE NURSES AND IS GOING TO JUST POOP HIS PANTS PT DID PROCEED TO SOIL HIMSELF AND REFUSING TO CLEAN HIMSELF OR ALLOW THIS NURSE TO HELP CLEAN HIM. SUGGESTION TO CLEAN PATIENT IN DECON ROOM WAS NOT SUCCESSFUL, PT REFUSING TO GET INTO WHEELCHAIR. PT ALSO REFUSING IV FLUIDS AND EKG. DR. PIZARRO AWARE.
[2024-10-14 08:55] LABS: Bilirubin Urine Negative (Negative); Blood Urine Trace (Negative); Glucose Urine UA Negative (Normal); Ketones Urine 1+ (Negative); Leukocyte Esterase Urine Negative (Negative); Nitrate Urine Negative (Negative); Protein Urine Trace (Negative); Specific Gravity, Urine 1.014 (1.005-1.030); Urine Appearance Clear (CLEAR); Urine Color Yellow (Yellow); Urobilinogen Urine 0.2 mg/dL (Negative)
[2024-10-14 08:58] LABS: Add Urine Microscopic? YES
[2024-10-14 09:02] LABS: Amphetamines Screen Urine Negative (Negative); Barbiturates Screen Urine Negative (Negative); Benzodiazepines Screen Urine Negative (Negative); Cocaine Screen Urine Negative (Negative); Opiate Screen Urine Negative (Negative); PCP Screen Urine Negative (Negative); THC Screen Urine Negative (Negative)
[2024-10-14 09:27] LABS: UA Manual Slide Review YES; UA Slide Review UA Slide Review Perf
[2024-10-14 09:30] LABS: Add Urine Culture? No; Coarse Granular Casts Urine 0-4 /lpf; Mucus Urine 1+ /hpf; RBC Urine 0-4 /hpf (0-2); Squamous Epithelial Cell Urine 0-4 /hpf (0-5); WBC Urine 0-4 /hpf (0-5)
--- NOTE | 2024-10-14 10:57 | PC.PHAR ---
Pharmacy provided current medication list. Unknown last time taken.
== END 2024-10-14 12:04 | disposition home or self-care (01) ==
PROVIDERS: Emergency Provider Family Medicine; PCP Family Medicine
DX: F10.229 Alcohol dependence with intoxication, unspecified (principal); Y90.6 Blood alcohol level of 120-199 mg/100 ml; N17.9 Acute kidney failure, unspecified; Z72.0 Tobacco use
CPT/HCPCS: 36415; 70450; 71045; 80053; 80306; 80307; 81001; 82140; 85025; 93005; 99285

== ENCOUNTER 2024-10-15 13:38 | Inpatient (IN) | payer MEDICAID, SELFPAY ==
[2024-10-15] VITALS (39 sets, daily range): BP systolic 74–132; BP diastolic 13–104; PULSE 114–178; RESP 15–37; TEMP 36.3–36.7; O2SAT 95–99; BMI 31.3; BMI 34.0
--- NOTE | 2024-10-15 13:45 | XRR_ITS ---
PROCEDURE INFORMATION: Exam: XR Chest Exam date and time: 10/15/2024 3:45 PM Age: 74 years old Clinical indication: Other: Mhe; Additional info: Dyspnea/cough TECHNIQUE: Imaging protocol: Radiologic exam of the chest. Views: 1 view. COMPARISON: CR XR chest 1V portable [id number] 10/14/2024 7:05 AM FINDINGS: Lungs: Unchanged scarring, atelectasis, and/or pneumonitis in the lung bases. Otherwise, unremarkable. Pleural spaces: Unremarkable. No pleural effusion. No pneumothorax. Heart/Mediastinum: Unremarkable. No cardiomegaly. Bones/joints: Nothing acute. No change. XR/XR chest 1V portable [id number] IMPRESSION: Unchanged scarring, atelectasis, and/or pneumonitis in the lung bases.
--- NOTE | 2024-10-15 14:03 | W.ED.GENADLT ---
Documented by User: Ahsan Mosqueda, 10/17/24 05:50 HPI - General Adult General: Chief complaint: Psychiatric Symptoms Stated complaint: weakness Time Seen by Provider: 10/15/24 13:45 History of Present Illness: 74-year-old male presents to the emergency room obviously end of noxiously intoxicated. He is suicidal with a plan to either shoot himself in the head or run into traffic. Patient was here yesterday at that time he was intoxicated and convinced that he was in DTs his blood alcohol was 177. After monitoring for period of time he became more sober and requested to leave and he was discharged home he was not homicidal or suicidal at this time. He was initially contacted by police after a call for service for being intoxicated. He was unable to stand on his own and EMS was called he began to make threats of harming self and he was brought to the emergency room. He denies any other injuries. Associated symptoms: Reports palpitations; Deny chest pain, dyspnea or rash Related Data Home Medications Medication Instructions Recorded Confirmed metoprolol tartrate 50 mg tablet 50 mg PO BID 01/22/23 10/15/24 tamsulosin 0.4 mg capsule 0.4 mg PO QPM 07/04/24 10/15/24 metoprolol tartrate 25 mg tablet 12.5 mg PO BID 10/14/24 10/15/24 pantoprazole 20 mg tablet,delayed 20 mg PO DAILY 10/14/24 10/15/24 release (Protonix) quetiapine 100 mg tablet 100 mg PO BEDTIME 10/14/24 10/15/24 quetiapine 50 mg tablet 50 mg PO .AFTER LUNCH 10/14/24 10/15/24 ramelteon 8 mg tablet 8 mg PO BEDTIME PRN Sleep 10/14/24 10/15/24 trazodone 150 mg tablet 150 mg PO QPM 10/14/24 10/15/24 clonazepam 1 mg tablet 1 mg PO QPM 10/15/24 10/15/24 Previous Rx's Medication Instructions Recorded bupropion HCl 200 mg tablet,12 hr 200 mg PO QAM #30 tabs 05/20/24 sustained-release (Wellbutrin SR) hydroxyzine pamoate 25 mg capsule 25 mg PO DAILY PRN anxiety #30 caps 06/04/24 (Vistaril) Allergies Allergy/AdvReac Type Severity Reaction Status Date / Time ketorolac Allergy Unknown Unknown Verified 05/20/24 13:35 naproxen Allergy Unknown Unknown Verified 05/20/24 13:35 vortioxetine Allergy Unknown Unknown Verified 05/20/24 13:35 [[facility] Review of Systems Const: Denies: fever(s) or chills Card: Reports: palpitations; Denies: chest pain Resp: Denies: dyspnea GI: Denies: abdominal pain : Denies: dysuria, urinary frequency or urinary urgency Musc: Denies: neck pain or back pain Skin/Breast: Denies: rash PFSH ED PFSH: Medical History Alcohol use disorder, severe, dependence Alcohol dependence in remission in early remission, last alcohol use 06/25/23 Psychiatric care Heavy cigarette smoker Chronic post-traumatic stress disorder Bipolar 1 disorder, depressed, mild Family History Other Cancer Social History Smoking and tobacco/nicotine status: current every day tobacco/nicotine user Alcohol intake: current Physical Exam Const: GENERAL APPEARANCE: cooperative ORIENTATION/CONSCIOUSNESS: Yes awake HENMT: COMMON NORMALS: normocephalic, atraumatic and hearing grossly normal bilaterally HEAD & SCALP: normocephalic and atraumatic Resp: COMMON NORMALS: normal respiratory effort, No retractions, No use of accessory muscles and clear to auscultation bilaterally AUSCULTATION: clear to auscultation bilaterally Cardio: COMMON NORMALS: No murmurs present (Cardio) RATE: tachycardic RHYTHM: abnormal rhythm irregularly irregular GI: COMMON NORMALS: Soft to palpation and No hepatosplenomegaly present AUSCULTATION: Yes normoactive bowel sounds PALPATION: Yes Soft to palpation, No Tenderness to palpation present (GI), No Guarding due to palpation present (GI) and Yes No hepatosplenomegaly present Extremity: COMMON NORMALS: normal to inspection, capillary refill normal, no clubbing, cyanosis or edema, no calf tenderness and no pedal edema Skin: COMMON NORMALS: no rashes or lesions noted GENERAL SKIN EXAM: no rashes or lesions noted Course Vital Signs: Vital signs: Vital Signs Temperature 99.1 F 10/17/24 03:45 Pulse Rate 99 10/17/24 04:00 Respiratory Rate 28 H 10/17/24 04:00 Blood Pressure 79/60 10/17/24 04:00 Pulse Oximetry 94 10/17/24 04:00 Oxygen Delivery Me thod Room Air 10/17/24 03:45 MDM - General Adult Medical Decision Making Care signed out to Dr. Mcwilliams at change of shift. See final notes for diagnosis and disposition. Care transferred over to myself at shift change, while we were giving the patient IV fluids waiting to recheck his CPK and blood alcohol level patient in A-fib with RVR at a sustained rate of about 170 bpm. Patient was given Cardizem started on a Cardizem bolus, Dr. Duong was consulted patient be placed in the ICU. Lab Data 10/17/24 03:51 10/17/24 03:51 Radiology Impressions Chest X-Ray 10/15/24 13:45 IMPRESSION: Unchanged scarring, atelectasis, and/or pneumonitis in the lung bases. Laboratory Results WBC 10.59 10^3/uL (3.29-11.43) 10/15/24 15:33 Corrected WBC Cancelled 10/15/24 14:23 RBC 4.88 10^6/uL (3.85-5.65) 10/15/24 15:33 Hgb 15.40 g/dL (11.27-16.99) 10/15/24 15:33 Hct 46.2 % (37-53) 10/15/24 15:33 MCV 94.7 fl (82-101) 10/15/24 15:33 MCH 31.6 pg (27-33) 10/15/24 15:33 MCHC 33.3 g/dL (30-55) 10/15/24 15:33 RDW 13.7 % (12.1-15.1) 10/15/24 15:33 Plt Count 295 10^3/cmm (157-399) 10/15/24 15:33 MPV 9.6 fL (7.4-10.4) 10/15/24 15:33 Gran % Cancelled 10/15/24 14:23 Neut % (Auto) 77.1 % 10/15/24 15:33 Lymph % (Auto) 10.9 % 10/15/24 15:33 Pitt % (Auto) 10.1 % 10/15/24 15:33 Eos % (Auto) 0.8 % 10/15/24 15:33 Baso % (Auto) 0.4 % 10/15/24 15:33 Neut # (Auto) 8.18 10^3/uL (1.8-7.7) H 10/15/24 15:33 Lymph # (Auto) 1.2 10^3/uL (0.8-4.8) 10/15/24 15:33 [place] # (Auto) 1.1 10^3/uL (0.2-0.9) H 10/15/24 15:33 Eos # (Auto) 0.1 10^3/uL (0.0-0.8) 10/15/24 15:33 Baso # (Auto) 0.0 10^3/uL (0.0-0.1) 10/15/24 15:33 Absolute Gran (auto) Cancelled 10/15/24 14:23 Nucleated RBC % (auto) 0 % 10/15/24 15:33 Nucleated RBCs # 0.0 /100WBC 10/15/24 15:33 Sodium 143 mmol/L (136-145) 10/15/24 15:33 Potassium 4.3 mmol/L (3.5-5.1) 10/15/24 15:33 Chloride 99 mmol/L (98-107) 10/15/24 15:33 Carbon Dioxide 15 mmol/L (22-29) L 10/15/24 15:33 Anion Gap 33.3 (5-19) H 10/15/24 15:33 BUN 64 mg/dL (8-23) H 10/15/24 15:33 Creatinine 2.2 mg/dL (0.7-1.2) H 10/15/24 15:33 GFR Calculation Not Reportable 10/15/24 15:33 Glucose 93 mg/dL (65-115) 10/15/24 15:33 Calculated Osmolality 314 mOsm/kg (285-295) H 10/15/24 15:33 Calcium 8.9 mg/dL (8.5-10.5) 10/15/24 15:33 Magnesium 2.5 mg/dL (1.7-2.3) H 10/15/24 20:39 Total Bilirubin 1.1 mg/dL (0.15-1.2) 10/15/24 15:33 AST 101 U/L (0-40) H 10/15/24 15:33 ALT 72 U/L (0-41) H 10/15/24 15:33 Alkaline Phosphatase 120 U/L (40-130) 10/15/24 15:33 Creatine Kinase 553 U/L (39-308) H* 10/15/24 20:39 Total Protein 7.3 g/dL (6.6-8.7) 10/15/24 15:33 Albumin 4.0 g/dL (3.5-5.2) 10/15/24 15:33 Globulin 3.3 g/dL (1.3-4.6) 10/15/24 15:33 Lipase 55 U/L (13-60) 10/15/24 15:33 TSH 0.21 uIU/mL (0.27-4.20) L 10/15/24 20:39 Free T4 1.31 ng/dL (0.82-1.77) 10/15/24 20:39 Urine Color Yellow (Yellow) 10/15/24 15:21 Urine Appearance Clear (CLEAR) 10/15/24 15:21 Urine pH 5.5 (5-7) 10/15/24 15:21 Ur Specific [place] 1.015 (1.005-1.030) 10/15/24 15:21 Urine Protein Trace (Negative) A 10/15/24 15:21 Urine Glucose (UA) Negative (Normal) 10/15/24 15:21 Urine Ketones 1+ (Negative) H 10/15/24 15:21 Urine Blood 3+ (Negative) A 10/15/24 15:21 Urine Nitrate Negative (Negative) 10/15/24 15:21 Urine Bilirubin Negative (Negative) 10/15/24 15:21 Urine Urobilinogen 0.2 mg/dL (Negative) 10/15/24 15:21 Ur Leukocyte Esterase Negative (Negative) 10/15/24 15:21 Urine RBC 0-2 /hpf (0-2) 10/15/24 15:21 Urine WBC 0-5 /hpf (0-5) 10/15/24 15:21 Ur Squamous Epith Cells 0-5 /hpf (0-5) 10/15/24 15:21 Amorphous Sediment Not Reportable 10/15/24 15:21 Urine Bacteria None seen /hpf (NONE) 10/15/24 15:21 Hyaline Casts 10.32 /lpf 10/15/24 15:21 Fine Granular Casts 5-10 /lpf H 10/15/24 15:21 Urine Opiates Screen Negative ng/mL (Negative) 10/15/24 15:21 Ur Barbiturates Screen Negative ng/mL (Negative) 10/15/24 15:21 Ur Phencyclidine Scrn Negative ng/mL (Negative) 10/15/24 15:21 Ur Amphetamines Screen Negative ng/mL (Negative) 10/15/24 15:21 U Benzodiazepines Scrn Negative ng/mL (Negative) 10/15/24 15:21 Urine Cocaine Screen Negative ng/mL (Negative) 10/15/24 15:21 U Marijuana (THC) Screen Negative ng/mL (Negative) 10/15/24 15:21 Ethyl Alcohol 135 mg/dL (0-10) H 10/15/24 20:39 Coronavirus (PCR) Negative (Negative) 10/15/24 14:32 Influenza A (PCR) Negative (Negative) 10/15/24 14:32 Influenza Type B (PCR) Negative (Negative) 10/15/24 14:32 RSV (PCR) Negative (Negative) 10/15/24 14:32 Discharge Plan Discharge Patient Disposition: Admitted As Inpatient Admit Provider: Richard Duong Clinical Impression: Atrial fibrillation with rapid ventricular response, Alcohol intoxication, Depression with suicidal ideation, Elevated CPK Condition: Stable Coding Level of Care Code ED Cloth Doubling Machine Operator for Chg Fwd Documented by User: Keegan Mcwilliams DO 10/15/24 20:31 HPI - General Adult General: Chief complaint: Psychiatric Symptoms Stated complaint: weakness Time Seen by Provider: 10/15/24 13:45 Related Data Home Medications Medication Instructions Recorded Confirmed metoprolol tartrate 50 mg tablet 50 mg PO BID 01/22/23 10/15/24 tamsulosin 0.4 mg capsule 0.4 mg PO QPM 07/04/24 10/15/24 metoprolol tartrate 25 mg tablet 12.5 mg PO BID 10/14/24 10/15/24 pantoprazole 20 mg tablet,delayed 20 mg PO DAILY 10/14/24 10/15/24 release (Protonix) quetiapine 100 mg tablet 100 mg PO BEDTIME 10/14/24 10/15/24 quetiapine 50 mg tablet 50 mg PO .AFTER LUNCH 10/14/24 10/15/24 ramelteon 8 mg tablet 8 mg PO BEDTIME PRN Sleep 10/14/24 10/15/24 trazodone 150 mg tablet 150 mg PO QPM 10/14/24 10/15/24 clonazepam 1 mg tablet 1 mg PO QPM 10/15/24 10/15/24 Previous Rx's Medication Instructions Recorded bupropion HCl 200 mg tablet,12 hr 200 mg PO QAM #30 tabs 05/20/24 sustained-release (Wellbutrin SR) hydroxyzine pamoate 25 mg capsule 25 mg PO DAILY PRN anxiety #30 caps 06/04/24 (Vistaril) Allergies Allergy/AdvReac Type Severity Reaction Status Date / Time ketorolac Allergy Unknown Unknown Verified 05/20/24 13:35 naproxen Allergy Unknown Unknown Verified 05/20/24 13:35 vortioxetine Allergy Unknown Unknown Verified 05/20/24 13:35 [From [facility]] [facility] ED [facility]: Medical History Alcohol use disorder, severe, dependence Alcohol dependence in remission in early remission, last alcohol use 06/25/23 Psychiatric care Heavy cigarette smoker Chronic post-traumatic stress disorder Bipolar 1 disorder, depressed, mild Family History Other Cancer Social History Smoking and tobacco/nicotine status: current every day tobacco/nicotine user Alcohol intake: current Course Vital Signs: Vital signs: Vital Signs Temperature 99.1 F 10/17/24 03:45 Pulse Rate 99 10/17/24 04:00 Respiratory Rate 28 H 10/17/24 04:00 Blood Pressure 79/60 10/17/24 04:00 Pulse Oximetry 94 10/17/24 04:00 Oxygen Delivery Me thod Room Air 10/17/24 03:45 MDM - General Adult Medical Decision Making Care transferred over to myself at shift change, while we were giving the patient IV fluids waiting to recheck his CPK and blood alcohol level patient in A-fib with RVR at a sustained rate of about 170 bpm. Patient was given Cardizem started on a Cardizem bolus, Dr. Duong was consulted patient be placed in the ICU. Medical Records I reviewed the patient's medical records. Lab Data I reviewed the patient's lab results. 10/17/24 03:51 10/17/24 03:51 Radiology Impressions Chest X-Ray 10/15/24 13:45 IMPRESSION: Unchanged scarring, atelectasis, and/or pneumonitis in the lung bases. Laboratory Results WBC 10.59 10^3/uL (3.29-11.43) 10/15/24 15:33 Corrected WBC Cancelled 10/15/24 14:23 RBC 4.88 10^6/uL (3.85-5.65) 10/15/24 15:33 Hgb 15.40 g/dL (11.27-16.99) 10/15/24 15:33 Hct 46.2 % (37-53) 10/15/24 15:33 MCV 94.7 fl (82-101) 10/15/24 15:33 MCH 31.6 pg (27-33) 10/15/24 15:33 MCHC 33.3 g/dL (30-55) 10/15/24 15:33 RDW 13.7 % (12.1-15.1) 10/15/24 15:33 Plt Count 295 10^3/cmm (157-399) 10/15/24 15:33 MPV 9.6 fL (7.4-10.4) 10/15/24 15:33 Gran % Cancelled 10/15/24 14:23 Neut % (Auto) 77.1 % 10/15/24 15:33 Lymph % (Auto) 10.9 % 10/15/24 15:33 [place] % (Auto) 10.1 % 10/15/24 15:33 Eos % (Auto) 0.8 % 10/15/24 15:33 Baso % (Auto) 0.4 % 10/15/24 15:33 Neut # (Auto) 8.18 10^3/uL (1.8-7.7) H 10/15/24 15:33 Lymph # (Auto) 1.2 10^3/uL (0.8-4.8) 10/15/24 15:33 [place] # (Auto) 1.1 10^3/uL (0.2-0.9) H 10/15/24 15:33 Eos # (Auto) 0.1 10^3/uL (0.0-0.8) 10/15/24 15:33 Baso # (Auto) 0.0 10^3/uL (0.0-0.1) 10/15/24 15:33 Absolute Gran (auto) Cancelled 10/15/24 14:23 Nucleated RBC % (auto) 0 % 10/15/24 15:33 Nucleated RBCs # 0.0 /100WBC 10/15/24 15:33 Sodium 143 mmol/L (136-145) 10/15/24 15:33 Potassium 4.3 mmol/L (3.5-5.1) 10/15/24 15:33 Chloride 99 mmol/L (98-107) 10/15/24 15:33 Carbon Dioxide 15 mmol/L (22-29) L 10/15/24 15:33 Anion Gap 33.3 (5-19) H 10/15/24 15:33 BUN 64 mg/dL (8-23) H 10/15/24 15:33 Creatinine 2.2 mg/dL (0.7-1.2) H 10/15/24 15:33 GFR Calculation Not Reportable 10/15/24 15:33 Glucose 93 mg/dL (65-115) 10/15/24 15:33 Calculated Osmolality 314 mOsm/kg (285-295) H 10/15/24 15:33 Calcium 8.9 mg/dL (8.5-10.5) 10/15/24 15:33 Magnesium 2.5 mg/dL (1.7-2.3) H 10/15/24 20:39 Total Bilirubin 1.1 mg/dL (0.15-1.2) 10/15/24 15:33 AST 101 U/L (0-40) H 10/15/24 15:33 ALT 72 U/L (0-41) H 10/15/24 15:33 Alkaline Phosphatase 120 U/L (40-130) 10/15/24 15:33 Creatine Kinase 553 U/L (39-308) H* 10/15/24 20:39 Total Protein 7.3 g/dL (6.6-8.7) 10/15/24 15:33 Albumin 4.0 g/dL (3.5-5.2) 10/15/24 15:33 Globulin 3.3 g/dL (1.3-4.6) 10/15/24 15: Lipase 55 U/L (13-60) 10/15/24 15: TSH 0.21 uIU/mL (0.27-4.20) L 10/15/24 20:39 Free T4 1.31 ng/dL (0.82-1.77) 10/15/24 20:39 Urine Color Yellow (Yellow) 10/15/24 15:21 Urine Appearance Clear (CLEAR) 10/15/24 15:21 Urine pH 5.5 (5-7) 10/15/24 15:21 Ur Specific [place] 1.015 (1.005-1.030) 10/15/24 15:21 Urine Protein Trace (Negative) A 10/15/24 15:21 Urine Glucose (UA) Negative (Normal) 10/15/24 15:21 Urine Ketones 1+ (Negative) H 10/15/24 15:21 Urine Blood 3+ (Negative) A 10/15/24 15:21 Urine Nitrate Negative (Negative) 10/15/24 15:21 Urine Bilirubin Negative (Negative) 10/15/24 15:21 Urine Urobilinogen 0.2 mg/dL (Negative) 10/15/24 15:21 Ur Leukocyte Esterase Negative (Negative) 10/15/24 15:21 Urine RBC 0-2 /hpf (0-2) 10/15/24 15:21 Urine WBC 0-5 /hpf (0-5) 10/15/24 15:21 Ur Squamous Epith Cells 0-5 /hpf (0-5) 10/15/24 15:21 Amorphous Sediment Not Reportable 10/15/24 15:21 Urine Bacteria None seen /hpf (NONE) 10/15/24 15:21 Hyaline Casts 10.32 /lpf 10/15/24 15:21 Fine Granular Casts 5-10 /lpf H 10/15/24 15:21 Urine Opiates Screen Negative ng/mL (Negative) 10/15/24 15:21 Ur Barbiturates Screen Negative ng/mL (Negative) 10/15/24 15:21 Ur Phencyclidine Scrn Negative ng/mL (Negative) 10/15/24 15:21 Ur Amphetamines Screen Negative ng/mL (Negative) 10/15/24 15:21 U Benzodiazepines Scrn Negative ng/mL (Negative) 10/15/24 15:21 Urine Cocaine Screen Negative ng/mL (Negative) 10/15/24 15:21 U Marijuana (THC) Screen Negative ng/mL (Negative) 10/15/24 15:21 Ethyl Alcohol 135 mg/dL (0-10) H 10/15/24 20:39 Coronavirus (PCR) Negative (Negative) 10/15/24 14:32 Influenza A (PCR) Negative (Negative) 10/15/24 14:32 Influenza Type B (PCR) Negative (Negative) 10/15/24 14:32 RSV (PCR) Negative (Negative) 10/15/24 14:32 All radiology interpretation(s) finalized by discharge Discharge Plan Discharge Patient Disposition: Admitted As Inpatient Admit Provider: Richard Duong Clinical Impression: Atrial fibrillation with rapid ventricular response, Alcohol intoxication, Depression with suicidal ideation, Elevated CPK Condition: Stable Coding Level of Care Code ED Cloth Doubling Machine Operator for Alec Carranza
--- NOTE | 2024-10-15 14:21 | PC.NURSE ---
PATIENTS MONEY COUNTED WITH ELEANOR, SECURITY AND FORM FILLED OUT AND MONEY PLACED IN LOCKER.
--- NOTE | 2024-10-15 14:39 | PC.PHAR ---
Pt continues to state he is out of medicine and needs it. Pt has not filled at an external pharmacy in several months.
--- NOTE | 2024-10-15 14:45 | PC.NURSE ---
VERBAL ORDER FROM DR. PIZARRO ORDER ATIVAN 2MG PO ONCE.
[2024-10-15] MEDS: LORazepam 2 mg Tablet PO ×2 (14:51→19:30)
--- NOTE | 2024-10-15 14:53 | PC.NURSE ---
96 hour hold rights read and reviewed with patient. Nilesh and Dontrell from security present during reading of rights. Patient is refusing to give up his cell phone at this time. Patient verbalized understandings of rights.
[2024-10-15 15:36] LABS: Bilirubin Urine Negative (Negative); Blood Urine 3+ (Negative); Glucose Urine UA Negative (Normal); Ketones Urine 1+ (Negative); Leukocyte Esterase Urine Negative (Negative); Nitrate Urine Negative (Negative); Protein Urine Trace (Negative); Specific Gravity, Urine 1.015 (1.005-1.030); Urine Appearance Clear (CLEAR); Urine Color Yellow (Yellow); Urobilinogen Urine 0.2 mg/dL (Negative); pH Urine 5.5 (5-7)
[2024-10-15 15:41] LABS: Add Urine Microscopic? YES; Bacteria Urine None Seen /hpf; Hyaline Casts Urine 10.32 /lpf; RBC Urine 0-2 /hpf (0-2); Squamous Epithelial Cell Urine 0-5 /hpf (0-5); WBC Urine 0-5 /hpf (0-5)
[2024-10-15 15:50] LABS: Covid PCR NEGATIVE (Negative); Influenza A NEGATIVE (Negative); Influenza B NEGATIVE (Negative); Respiratory Syncytial Virus Ce NEGATIVE (Negative)
[2024-10-15 15:56] LABS: Basophils % 0.4 %; Eosinophils # 0.1 10^3/uL (0.0-0.8); Eosinophils % 0.8 %; Hematocrit 46.2 % (37-53); Lymphocytes # 1.2 10^3/uL (0.8-4.8); Lymphocytes % 10.9 %; Mean Corpuscular HGB Conc 33.3 g/dL (30-55); Mean Corpuscular Hemoglobin 31.6 pg (27-33); Mean Corpuscular Volume 94.7 fl (82-101); Mean Platelet Volume 9.6 fL (7.4-10.4); Monocytes # 1.1 10^3/uL (0.2-0.9); Monocytes % 10.1 %; Neutrophils # 8.18 10^3/uL (1.8-7.7); Neutrophils % 77.1 %; Nucleated Red Blood Cells % 0 %; Platelet Count 295 10^3/cmm (157-399); Red Blood Count 4.88 10^6/uL (3.85-5.65); Red Cell Distribution Width 13.7 % (12.1-15.1); White Blood Count 10.59 10^3/uL (3.29-11.43)
--- NOTE | 2024-10-15 15:58 | ECG_ITS ---
[employer] Test Date: 2024-10-15 Pat Name: Richard Combs Department: Room: Gender: Male Sql Developer: : 1950 Requested By: Ahsan Saleh Order Number: [id number] Reading MD: CR OCAMPO Measurements Intervals [place] Rate: 109 P: 51 IA: 152 QRS: -30 QRSD: 72 T: 72 QT: 311 QTc: 420 Interpretive Statements SINUS TACHYCARDIA POSSIBLE ANTERIOR MYOCARDIAL INFARCTION , PROBABLY OLD [30 ms Q WAVE IN V3/V4, OR R < 0.2 mV IN V4] ABNORMAL RHYTHM ECG Compared to ECG 10/14/2024 08:42:18 Left-axis deviation no longer present Myocardial infarct finding still present Electronically Signed On 10-15-2024 17:16:23 SECONDARY CONNECTOR ARMATURE by CR OCAMPO [email or web address]
[2024-10-15 16:08] LABS: UA Slide Review UA Slide Review Perf
[2024-10-15 16:52] LABS: Amphetamines Screen Urine Negative (Negative); Barbiturates Screen Urine Negative (Negative); Benzodiazepines Screen Urine Negative (Negative); Cocaine Screen Urine Negative (Negative); Opiate Screen Urine Negative (Negative); PCP Screen Urine Negative (Negative); THC Screen Urine Negative (Negative)
[2024-10-15 17:29] LABS: Alkaline Phosphatase 120 U/L (40-130); Calcium 8.9 mg/dL (8.5-10.5); Chloride 99 mmol/L (98-107); Globulin 3.3 g/dL (1.3-4.6); Glucose 93 mg/dL (65-115); Lipase 55 U/L (13-60); Potassium 4.3 mmol/L (3.5-5.1); Sodium 143 mmol/L (136-145); Total Bilirubin 1.1 mg/dL (0.15-1.2); Total Protein 7.3 g/dL (6.6-8.7)
[2024-10-15 17:32] LABS: Anion Gap 33.3 (5-19); Blood Urea Nitrogen 64 mg/dL (8-23); Carbon Dioxide 15 mmol/L (22-29); Creatinine Clr Calc Pharmacy 32.1241; Osmolality Calculated 314 mOsm/kg (285-295)
[2024-10-15 17:33] LABS: Alanine Aminotransferase 72 U/L (0-41); Alcohol Level 228 mg/dL (0-10); Aspartate Amino Transferase 101 U/L (0-40)
[2024-10-15 17:34] LABS: Creatine Phosphokinase 572 U/L (39-308)
[2024-10-15] MEDS: ziprasidone 20 mg/mL SDV IM (17:43)
[2024-10-15] MEDS: water for injection-sterile 10 ML 1.2 ML (17:43)
[2024-10-15] MEDS: sodium chloride 0.9% 1,000 ML 999 ML IV ×2 (18:24→18:25)
[2024-10-15] MEDS: zolpidem 5 mg Tablet 10 MG PO (19:37)
--- NOTE | 2024-10-15 20:18 | ECG_ITS ---
[facility]24[facility]15 Pat Name: Richard Combs Department: Room: [facility] Gender: Male Orchard Sprayer: : 1950 Requested By: Keegan Mcwilliams Order Number: [id number] Zach MD: Eduardo Earl M.D. Measurements Intervals [place] Rate: 148 P: 0 UT: 0 QRS: -41 QRSD: 77 T: 78 QT: 278 QTc: 437 Interpretive Statements ATRIAL FIBRILLATION WITH RAPID VENTRICULAR RESPONSE LEFT AXIS DEVIATION [QRS AXIS < -30] LOW QRS VOLTAGE IN PRECORDIAL LEADS [QRS DEFLECTION < 1.0 mV IN CHEST LEADS] NONSPECIFIC T-WAVE ABNORMALITY Compared to ECG 10/15/2024 16:06:48 Left-axis deviation now present Low QRS voltage now present T-wave abnormality now present Sinus tachycardia no longer present Myocardial infarct finding no longer present Electronically Signed On 10-18-2024 10:31:38 [facility] REGISTRY by Eduardo Earl M.D. [email or web address]
--- NOTE | 2024-10-15 20:32 | P.HP_ITS ---
Providers/Chief Complaint 2 Primary Care Provider: Marlena Nolan MD Chief Complaint: weakness History of Present Illness Richard Combs is a 74 year old male with a past medical history significant for alcohol use disorder, tobacco use disorder, PTSD, bipolar 1 disorder, multiple other comorbidities who presents emergency department with with alcohol intoxication as well as suicidal ideation. Upon presentation, patient noted to be intoxicated with alcohol. He expressed suicidal ideations with plans to shoot himself or walk into traffic. Patient was intoxicated while making these statements. 96 hour hold placed by ED provider. ED course complicated by tachycardia. Rhythm appeared to be atrial fibrillation per ED provider. Patient was started on Cardizem drip in ED. He denies palpitations, shortness of breath, chest pain, fevers or chills. Denies alleviating or aggravating factors. Review of Systems 2 Narrative: A complete review of systems was obtained and found to be negative except for symptoms listed in HPI Medications/Allergies Home Medications Medication Instructions Recorded Confirmed Last Taken Type metoprolol tartrate 50 mg tablet 50 mg PO BID 01/22/23 10/15/24 Unknown History bupropion HCl 200 mg tablet,12 hr 200 mg PO QAM #30 tabs 05/20/24 10/15/24 Unknown Rx sustained-release (Wellbutrin SR) hydroxyzine pamoate 25 mg capsule 25 mg PO DAILY PRN anxiety #30 caps 06/04/24 10/15/24 Unknown Rx (Vistaril) tamsulosin 0.4 mg capsule 0.4 mg PO QPM 07/04/24 10/15/24 Unknown History metoprolol tartrate 25 mg tablet 12.5 mg PO BID 10/14/24 10/15/24 Unknown History pantoprazole 20 mg tablet,delayed 20 mg PO DAILY 10/14/24 10/15/24 Unknown History release (Protonix) quetiapine 100 mg tablet 100 mg PO BEDTIME 10/14/24 10/15/24 Unknown History quetiapine 50 mg tablet 50 mg PO .AFTER LUNCH 10/14/24 10/15/24 Unknown History ramelteon 8 mg tablet 8 mg PO BEDTIME PRN Sleep 10/14/24 10/15/24 Unknown History trazodone 150 mg tablet 150 mg PO QPM 10/14/24 10/15/24 Unknown History clonazepam 1 mg tablet 1 mg PO QPM 10/15/24 10/15/24 Unknown History Allergies Allergy/AdvReac Type Severity Reaction Status Date / Time ketorolac Allergy Unknown Unknown Verified 05/20/24 13:35 naproxen Allergy Unknown Unknown Verified 05/20/24 13:35 vortioxetine Allergy Unknown Unknown Verified 05/20/24 13:35 [From [facility]] PFSH Acute 2 PFSH: Medical History Alcohol use disorder, severe, dependence Alcohol dependence in remission in early remission, last alcohol use 06/25/23 Psychiatric care Heavy cigarette smoker Chronic post-traumatic stress disorder Bipolar 1 disorder, depressed, mild Family History Other Cancer Social History Smoking and tobacco/nicotine status: current every day tobacco/nicotine user Alcohol intake: current Vitals/I&O/Wt Last Vital Signs Temp 97.4 F L 10/15/24 13:44 Pulse 114 H 10/15/24 16:24 Resp 17 10/15/24 13:44 BP 110/84 10/15/24 16:24 Pulse Ox 95 10/15/24 16:24 O2 Del Method Room Air 10/15/24 16:24 10/15/24 10/15/24 10/15/24 06:59 14:59 22:59 Intake Total 1000 / 1000 Balance 1000 / 1000 Weight last 48 hrs Weight 90.718 kg Physical Exam 2 Narrative: General: Patient is awake. Intoxicated. Head: Normocephalic. Atraumatic. EOM intact. Neck: No JVD. Cardiovascular: RRR. No gallops. No murmurs. Markedly tachycardic. Soft blood pressure. Lungs: Clear to auscultation, no use of accessory muscles, no crackles or wheezes. Skin: No jaundice. No rashes. Abdomen: Normal bowel sounds, abdomen soft and nontender. Genito Urinary: Genital exam not performed since complaints not related. Rectal: Rectal exam not performed since no symptoms indicated blood loss. Extremities: No cyanosis or clubbing. Abrasions and bruises present on lower extremities Musculoskeletal: No swollen or erythematous joints. Neurological: Moves all 4 extremities. No myoclonus. Data 10/15/24 15:33 10/15/24 15:33 A&P Assessment and plan (1) Tachyarrhythmia: Patient developed tachyarrhythmia in ED Telemetry with narrow complex somewhat irregular at times tachycardia Repeat EKGs appear to be sinus tachycardia rather than A-fib Will stop Cardizem drip Continuous telemetry monitoring, obtain EKGs as needed to confirm rhythm Received IV fluids Treat underlying withdrawal May consider beta-ton if hemodynamic support (2) Suicidal ideations: Suicidal ideation in the setting of alcohol intoxication Will need psychiatric evaluation after clinically improved Suicide precautions (3) Alcoholic intoxication: Patient currently intoxicated, high risk for proceeding with acute withdrawal [facility] protocol Thiamine, folic acid (4) Elevated CPK: Monitor renal function (5) Renal insufficiency: Baseline renal function unclear given labile labs May have component of CKD vs SHIRA on CKD Received IVF boluses in ED Strict I&Os Daily weights Renally dose medications Repeat labs in AM (6) Transaminitis: Related to EOTH consumption Continue to monitor (7) Metabolic acidosis: Suspected related to alcoholic ketoacidosis Recieved fluids Trend labs (8) Heavy cigarette smoker: Would benefit from cessation (9) Bipolar 1 disorder, depressed, mild: Continue home medications after list is updated Plan DVT ppx: Lovenox Code status: Assume Full Code Attestations 2 Medical Necessity Statement*: Patient presents with homicidal ideation, found to have acute EOTH intoxication and tachyarrhythmia with expected hospitalization to cross two midnights for control of arrhythmia, psychiatric care, alcohol withdrawal treatment, and supportive acre. Coding Level of Care Code Acute Code for [facility] Diagnoses Tachyarrhythmia R00.0 Suicidal ideations R45.851 Alcoholic intoxication F10.929 Elevated CPK R74.8 Renal insufficiency N28.9 Transaminitis R74.01 Metabolic acidosis E87.20 Heavy cigarette smoker F17.210 Bipolar 1 disorder, depressed, mild F31.31
[2024-10-15] MEDS: dilTIAZem 5 mg/mL SDV 5 mL 20 MG IVP (20:35)
[2024-10-15] MEDS: dilTIAZem 100 MG in sodium chloride 0.9% (add-van) 100 ML IV (20:50)
[2024-10-15 21:15] LABS: Alcohol Level 135 mg/dL (0-10)
[2024-10-15 21:19] LABS: Creatine Phosphokinase 553 U/L (39-308)
[2024-10-15 21:47] LABS: Magnesium 2.5 mg/dL (1.7-2.3); Thyroid Stimulating Hormone 0.21 uIU/mL (0.27-4.20)
[2024-10-15 22:39] LABS: Free T4 Free Thyroxine 1.31 ng/dL (0.82-1.77)
--- NOTE | 2024-10-15 23:03 | PC.NURSE ---
Patient arrived from ED, heart rate in 160's, blood pressure 90/60. Increased cardizem drip to 12.5, blood pressure dropped to 70/40 with map of 60. Decreased back to [address] Du[address]. [address]. Duong came to bedside, stated pt was in sinus tach, as EKG from ED showed as well, and to hold cardizem drip, and to perform another EKG if rate slowed. Patient intermittently restless and belligerent, reviewed order for Haldol and not warranted with current behavior, Dr. Duong ordered to hold for now. Cardizem drip disconnected at 2230.
[2024-10-15] MEDS: enoxaparin 40 mg/0.4 mL Syringe SUBCUT (23:15)
--- NOTE | 2024-10-15 23:17 | PC.NURSE ---
Thiamine 100 mg IM given right deltoid Enoxaparin 40 mg SQ given RLQ
[2024-10-16] VITALS (189 sets, daily range): BP systolic 47–138; BP diastolic 30–107; PULSE 79–180; RESP 13–39; TEMP 37.4; O2SAT 90–98
[2024-10-16] MEDS: LORazepam 2 mg/mL INJ 1 mL IVP ×8 (00:48→21:28)
[2024-10-16] MEDS: metoprolol tartrate 1 mg/1 mL SDV 5 mL 2.5 MG IVP ×2 (01:41→20:59)
--- NOTE | 2024-10-16 06:26 | PC.NURSE ---
Addendum entered by Sandra Pérez RN 10/16/24 06:31: Witnessed $645 being locked in Leila Luke RN. Original Note: Patient belongings Patient belongings on admit from ED including clothing, wallet, cell phone placed in ICU locker 2 $645 pre-counted in sealed envelope from ED placed in [facility]
[2024-10-16 07:51] LABS: Basophils % 0.3 %; Eosinophils # 0.3 10^3/uL (0.0-0.8); Eosinophils % 3.2 %; Hematocrit 39.3 % (37-53); Lymphocytes # 1.4 10^3/uL (0.8-4.8); Lymphocytes % 17.9 %; Mean Corpuscular HGB Conc 33.8 g/dL (30-55); Mean Corpuscular Hemoglobin 31.7 pg (27-33); Mean Corpuscular Volume 93.8 fl (82-101); Mean Platelet Volume 9.1 fL (7.4-10.4); Monocytes % 12.9 %; Neutrophils # 5.13 10^3/uL (1.8-7.7); Neutrophils % 65.4 %; Nucleated Red Blood Cells % 0 %; Platelet Count 201 10^3/cmm (157-399); Red Blood Count 4.19 10^6/uL (3.85-5.65); Red Cell Distribution Width 13.5 % (12.1-15.1); White Blood Count 7.83 10^3/uL (3.29-11.43)
[2024-10-16 08:14] LABS: Alanine Aminotransferase 83 U/L (0-41); Albumin Level 3.5 g/dL (3.5-5.2); Alkaline Phosphatase 115 U/L (40-130); Anion Gap 15.9 (5-19); Aspartate Amino Transferase 96 U/L (0-40); Blood Urea Nitrogen 42 mg/dL (8-23); Calcium 8.4 mg/dL (8.5-10.5); Carbon Dioxide 26 mmol/L (22-29); Chloride 103 mmol/L (98-107); Creatinine Clr Calc Pharmacy 44.5791; Globulin 2.6 g/dL (1.3-4.6); Glucose 124 mg/dL (65-115); Magnesium 2.3 mg/dL (1.7-2.3); Osmolality Calculated 304 mOsm/kg (285-295); Phosphorus 1.7 mg/dL (2.5-4.5); Potassium 3.9 mmol/L (3.5-5.1); Sodium 141 mmol/L (136-145); Total Bilirubin 1.5 mg/dL (0.15-1.2); Total Protein 6.1 g/dL (6.6-8.7)
--- NOTE | 2024-10-16 10:15 | PC.NURSE ---
CIWA Patient sleeping at this time, CIWA score 0.
[2024-10-16] MEDS: folic acid 1 mg Tablet PO (10:52)
[2024-10-16] MEDS: multivitamin therapeutic Tablet 1 TAB PO (10:52)
[2024-10-16] MEDS: thiamine 100 mg Tablet PO (10:52)
--- NOTE | 2024-10-16 12:08 | PC.NURSE ---
Update Contact List Patient asked this nurse to contact his at [facility] to let her know that he, the patient, is in the hospital. This nurse proceeded to call [facility] & ask for Ms. Davies to which the desk manager staff replied, Ms. Davies does not wish to speak with Mr. Combs, he verbally harasses her over the phone & she continues declining his calls. Ms. Davies has a guardian, if Mr. Combs wishes to pursue this matter further he will have to speak with Ms. Davies's guardian to which this nurse replied, no that is alright thank you for your time. This nurse removed Ms. Davies from patient contact list at this time.
--- NOTE | 2024-10-16 12:55 | PM.PN ---
Subjective Subjective: Seen him at bedside this morning. Patient opening eyes to verbal stimuli but not comprehensive and unable to follow commands. As per the chart and the case management he has a guardian appointed. No acute overnight events noted. This afternoon he had an episode of agitation, was verbally aggressive and was given 2 mg Ativan as per IANWA. Medications: Reviewed: Yes Vitals/I&O/Wt Last Vital Signs Temp 98.0 F 10/15/24 22:10 Pulse 178 H 10/16/24 12:15 Resp 26 H 10/16/24 12:15 BP 125/32 10/16/24 12:15 Pulse Ox 96 10/16/24 11:40 O2 Del Method Room Air 10/15/24 22:31 10/15/24 10/16/24 10/16/24 22:59 06:59 14:59 Intake Total 490 / 2504.625 480 / 480 Balance 490 / 2504.625 480 / 480 Weight last 48 hrs Weight 101 kg Weight 101.5 kg Weight 90.718 kg Physical Exam Narrative: General: Patient is awake. Intoxicated. Head: Normocephalic. Atraumatic. EOM intact. Neck: No JVD. Cardiovascular: RRR. No gallops. No murmurs. Markedly tachycardic. Soft blood pressure. Lungs: Clear to auscultation, no use of accessory muscles, no crackles or wheezes. Skin: No jaundice. No rashes. Abdomen: Normal bowel sounds, abdomen soft and nontender. Genito Urinary: Genital exam not performed since complaints not related. Rectal: Rectal exam not performed since no symptoms indicated blood loss. Extremities: No cyanosis or clubbing. Abrasions and bruises present on lower extremities Musculoskeletal: No swollen or erythematous joints. Neurological: Moves all 4 extremities. No myoclonus. Data 10/16/24 07:45 10/16/24 07:45 A&P Assessment and plan (1) Tachyarrhythmia: Patient developed tachyarrhythmia in ED Telemetry with narrow complex somewhat irregular at times tachycardia Repeat EKGs appear to be sinus tachycardia rather than A-fib Will stop Cardizem drip Continuous telemetry monitoring, obtain EKGs as needed to confirm rhythm Received IV fluids Treat underlying withdrawal May consider beta-ton if hemodynamic support (2) Suicidal ideations: Suicidal ideation in the setting of alcohol intoxication Will need psychiatric evaluation after clinically improved Suicide precautions (3) Alcoholic intoxication: Patient currently intoxicated, high risk for proceeding with acute withdrawal [facility] protocol Thiamine, folic acid (4) Elevated CPK: Monitor renal function (5) Renal insufficiency: Baseline renal function unclear given labile labs May have component of CKD vs SHIRA on CKD Received IVF boluses in ED Strict I&Os Daily weights Renally dose medications Repeat labs in AM (6) Transaminitis: Related to EOTH consumption Continue to monitor (7) Metabolic acidosis: Suspected related to alcoholic ketoacidosis Recieved fluids Trend labs (8) Heavy cigarette smoker: Would benefit from cessation (9) Bipolar 1 disorder, depressed, mild: Continue home medications after list is updated Plan 10/16/24 EKG and monitor showing normal sinus tachycardia. Has been off Cardizem drip. 2D echo done showed CONCLUSIONS LV systolic function is normal with EF of 55-60% Mild mitral regurgitation Mild tricuspid regurgitation No comparison studies are available. Will need psychiatry evaluation once more awake and alert. Continue to monitor in ICU for alcohol withdrawal Creatinine improving to 1.7 today. Will start on IV fluids normal saline at 60 cc per hour Will keep n.p.o. for now DVT ppx: Lovenox Code status: Assume Full Code Attestations Medical Necessity Statement*: Patient presents with homicidal ideation, found to have acute EOTH intoxication with expected hospitalization to cross two midnights for , psychiatric care, alcohol withdrawal treatment, and supportive acre. Time Spent in Patient Care: 25 minutes Coding Level of Care Code Acute Code for [facility] Diagnoses Tachyarrhythmia R00.0 Suicidal ideations R45.851 Alcoholic intoxication F10.929 Elevated CPK R74.8 Renal insufficiency N28.9 Transaminitis R74.01 Metabolic acidosis E87.20 Heavy cigarette smoker F17.210 Bipolar 1 disorder, depressed, mild F31.31 Time Spent (min) 25
[2024-10-16] MEDS: sodium chloride 0.9% 1,000 ML 75 ML IV (14:06)
--- NOTE | 2024-10-16 17:01 | ECG_ITS ---
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 Measurements Intervals [place] Rate: 155 P: 0 NH: 0 QRS: -34 QRSD: 97 T: 98 QT: 299 QTc: 481 Interpretive Statements ATRIAL FIBRILLATION WITH RAPID VENTRICULAR RESPONSE LEFT AXIS DEVIATION [QRS AXIS < -30] NONSPECIFIC ST & T-WAVE ABNORMALITY* Compared to ECG 10/15/2024 20:41:16 No significant changes Electronically Signed On 10-18-2024 10:27:31 [employer]CH[employer]AC[employer]Y MEMBER by Eduardo Earl M.D. [email or web address]
[2024-10-16] MEDS: dexmedeTOMIDine 0.9 % NaCL 400 MCG/100 ML PREMIX IV (20:25)
[2024-10-16] MEDS: PHENobarbital 130 mg/mL SDV 1 mL 135 MG IVP (21:43)
--- NOTE | 2024-10-16 22:14 | USCV_ITS ---
Richard Combs Age: 74 Gender: M : 1950 Exam Date: 10/16/2024 08:22 Ordering Phys: Richard Duong MD Technologist: Exam Location: [facility] [place] Indication: afib BP: 100 / 69 HR: 86 Rhythm: Sinus Technical Quality: Adequate MEASUREMENTS (Male / Female) Normal Values 2D ECHO LV Diastolic Diameter PLAX 3.5 cm 4.2 - 5.9 / 3.9 - 5.3 cm IVS Diastolic Thickness 1.1 cm 0.6 - 1.0 / 0.6 - 0.9 cm IVS Systolic Thickness 1.4 cm LVPW Diastolic Thickness 1.2 cm 0.6 - 1.0 / 0.6 - 0.9 cm LVPW Systolic Thickness 1.2 cm LVOT Diameter 2.0 cm LV Ejection Fraction 2D Teich 61.8 % LV Ejection Fraction MOD 4C 62.5 % LV Ejection Fraction MOD 2C 58.8 % LV Ejection Fraction 2C AL 58.4 % LA Diameter 4.3 cm RA Systolic Volume 4C AL 35.3 ml RA Systolic Volume 4C MOD 33.8 ml Aorta at Sinotubular Diameter 2.6 cm DOPPLER AV Peak Velocity 159.0 cm/s LVOT Peak Velocity 92.0 cm/s AV Area Cont Eq vti 2.3 cm squared AV Area Cont Eq pk 1.9 cm squared MV Peak Velocity 95.0 cm/s MV Area PHT 3.9 cm squared Mitral E to A Ratio 1.0 TV Peak Velocity 157.5 cm/s TR Peak Velocity 175.0 cm/s TR Peak Gradient 12.3 mmHg TV Peak E Velocity 98.0 cm/s Right Atrial Pressure 3.0 mmHg Pulmonary Artery Systolic Pressu 15.3 mmHg PV Peak Velocity 146.0 cm/s FINDINGS Left Ventricle Left ventricle is normal in size. LV systolic function is normal with EF 55 to 60%. No regional wall motion abnormalities are seen. Right Ventricle Normal in size and function Right Atrium Normal in size Left Atrium Normal in size Mitral Valve Structurally normal mitral valve. Mild mitral regurgitation. Aortic Valve Structurally normal aortic valve. No significant stenosis or regurgitation. Tricuspid Valve Mild tricuspid regurgitation. Insufficient TR jet to calculate RVSP Pulmonic Valve Not well visualized Pericardium Normal Aorta Normal in size IVC Appears to be normal CONCLUSIONS LV systolic function is normal with EF of 55-60% Mild mitral regurgitation Mild tricuspid regurgitation No comparison studies are available. Eduardo Earl MD (Electronically Signed) Final Date: 16 October 2024 11:48 S
[2024-10-16] MEDS: OLANZapine 10 mg VIAL 5 MG IM (22:49)
[2024-10-16] MEDS: enoxaparin 40 mg/0.4 mL Syringe SUBCUT (23:00)
--- NOTE | 2024-10-16 23:22 | PC.NURSE ---
Patient non compliant with directions, heart rate 160 up to 190 intermittently. bp stable. Denies pain. Patient on hold at this time for psychiatric eval, attempting to leave -pulled out iv/ Dr. Duong notified orders recieved for prn medications given. Still no response, recontacted new orders given. Patient required bilateral wrist restraints to prevent self removal of restarted iv - despite security and two nurse at bedside. Patient given iv phenobarbital then precedex drip started. Dr. Duong onto horvath to see patient. new order given for zyprexa - completed. Patient now resting without distress.
[2024-10-17] VITALS (98 sets, daily range): BP systolic 47–135; BP diastolic 33–106; PULSE 75–162; RESP 6–34; TEMP 36.3–37.3; O2SAT 80–100
[2024-10-17] MEDS: amiodarone 150 MG/100 ML PREMIX 400 MG IV (02:37)
[2024-10-17] MEDS: sodium chloride 0.9% 1,000 ML 75 ML IV ×2 (03:06→16:29)
[2024-10-17 04:51] LABS: Basophils % 0.3 %; Eosinophils # 0.3 10^3/uL (0.0-0.8); Eosinophils % 3.9 %; Hematocrit 36.6 % (37-53); Lymphocytes # 1.8 10^3/uL (0.8-4.8); Lymphocytes % 24.4 %; Mean Corpuscular HGB Conc 33.6 g/dL (30-55); Mean Corpuscular Hemoglobin 31.5 pg (27-33); Mean Corpuscular Volume 93.6 fl (82-101); Mean Platelet Volume 9.6 fL (7.4-10.4); Monocytes # 0.8 10^3/uL (0.2-0.9); Monocytes % 10.9 %; Neutrophils # 4.48 10^3/uL (1.8-7.7); Neutrophils % 59.8 %; Nucleated Red Blood Cells % 0 %; Platelet Count 174 10^3/cmm (157-399); Red Blood Count 3.91 10^6/uL (3.85-5.65); Red Cell Distribution Width 13.2 % (12.1-15.1); White Blood Count 7.49 10^3/uL (3.29-11.43)
[2024-10-17 05:16] LABS: Alanine Aminotransferase 85 U/L (0-41); Alkaline Phosphatase 129 U/L (40-130); Anion Gap 15.2 (5-19); Aspartate Amino Transferase 81 U/L (0-40); Blood Urea Nitrogen 24 mg/dL (8-23); Calcium 7.7 mg/dL (8.5-10.5); Carbon Dioxide 26 mmol/L (22-29); Chloride 108 mmol/L (98-107); Creatinine Clr Calc Pharmacy 53.7329; Globulin 2.3 g/dL (1.3-4.6); Glucose 131 mg/dL (65-115); Osmolality Calculated 308 mOsm/kg (285-295); Potassium 3.2 mmol/L (3.5-5.1); Sodium 146 mmol/L (136-145); Total Bilirubin 1.1 mg/dL (0.15-1.2); Total Protein 5.3 g/dL (6.6-8.7)
[2024-10-17] MEDS: lidocaine 1% 5 ML in potassium chloride premix 100 ML 26.25 ML IV (08:16)
--- NOTE | 2024-10-17 08:51 | PC.NURSE ---
Addendum entered by Miguelito Lux RN 10/17/24 09:11: Since waking patient up during morning assessment, he has continue to get more agitated and aggressive. Nurse has increased precedex to 0.3mcg/kg/hr. Will attempt to decrease later today. Original Note: upon morning assessment, patient was found to be resting comfortably. On 0.2mcg/kg/hr od precedex. Nurse considered reducing precedex, but upon making patient contact, he was easily awakened and became agitated, attempted to strike nurse with fists, but he is weak and uncoordinated, and unable to make contact. Patient repeatedly asked why he is here and when nurse explains alcohol withdrawal and suicidal ideations, the patient get further agitated and accuses the nurse of pushing him and continues to try and strike the nurse. NUrse repositioned the patient for comfort and provided a drink.
--- NOTE | 2024-10-17 14:49 | P.PN_ITS ---
Subjective 2 Subjective: Seen him at bedside this morning. Overnight was agitated and started on Precedex drip. This morning started to taper per the drip and he became more awake and alert Medications: Reviewed: Yes Vitals/I&O/Wt Last Vital Signs Temp 98.1 F 10/17/24 13:58 Pulse 96 10/17/24 14:00 Resp 24 H 10/17/24 13:45 BP 97/67 10/17/24 13:45 Pulse Ox 100 10/17/24 11:45 O2 Del Method Room Air 10/17/24 10:30 10/16/24 10/17/24 10/17/24 22:59 06:59 14:59 Intake Total 106.325 / 840.590 7652.257 / 1735.582 325.507 / 325.507 Balance 106.325 / 248.969 1355.257 / 1735.582 325.507 / 325.507 Weight last 48 hrs Weight 99.5 kg Weight 101 kg Weight 101.5 kg Physical Exam 2 Narrative: General: Patient is awake. Intoxicated. Head: Normocephalic. Atraumatic. EOM intact. Neck: No JVD. Cardiovascular: RRR. No gallops. No murmurs. Markedly tachycardic. Soft blood pressure. Lungs: Clear to auscultation, no use of accessory muscles, no crackles or wheezes. Skin: No jaundice. No rashes. Abdomen: Normal bowel sounds, abdomen soft and nontender. Genito Urinary: Genital exam not performed since complaints not related. Rectal: Rectal exam not performed since no symptoms indicated blood loss. Extremities: No cyanosis or clubbing. Abrasions and bruises present on lower extremities Musculoskeletal: No swollen or erythematous joints. Neurological: Moves all 4 extremities. No myoclonus. Data 10/17/24 03:51 10/17/24 03:51 A&P Assessment and plan (1) Tachyarrhythmia: Patient developed tachyarrhythmia in ED Telemetry with narrow complex somewhat irregular at times tachycardia Repeat EKGs appear to be sinus tachycardia rather than A-fib Will stop Cardizem drip Continuous telemetry monitoring, obtain EKGs as needed to confirm rhythm Received IV fluids Treat underlying withdrawal May consider beta-ton if hemodynamic support (2) Suicidal ideations: Suicidal ideation in the setting of alcohol intoxication Will need psychiatric evaluation after clinically improved Suicide precautions (3) Alcoholic intoxication: Patient currently intoxicated, high risk for proceeding with acute withdrawal [facility] protocol Thiamine, folic acid (4) Elevated CPK: Monitor renal function (5) Renal insufficiency: Baseline renal function unclear given labile labs May have component of CKD vs SHIRA on CKD Received IVF boluses in ED Strict I&Os Daily weights Renally dose medications Repeat labs in AM (6) Transaminitis: Related to EOTH consumption Continue to monitor (7) Metabolic acidosis: Suspected related to alcoholic ketoacidosis Recieved fluids Trend labs (8) Heavy cigarette smoker: Would benefit from cessation (9) Bipolar 1 disorder, depressed, mild: Continue home medications after list is updated Plan 10/16/24 EKG and monitor showing normal sinus tachycardia. Has been off Cardizem drip. 2D echo done showed CONCLUSIONS LV systolic function is normal with EF of 55-60% Mild mitral regurgitation Mild tricuspid regurgitation No comparison studies are available. Will need psychiatry evaluation once more awake and alert. Continue to monitor in ICU for alcohol withdrawal Creatinine improving to 1.7 today. Will start on IV fluids normal saline at 60 cc per hour Will keep n.p.o. for now 10/17/24 Psychiatry consulted, to see patient later today. Probably in addition to alcohol intoxication, also has psychosis component. Will continue to monitor in ICU for alcohol withdrawal Creatinine improving to 1.4 today, AST/ALT stable. Case discussed with case management, as per the guardian patient needs to be placed in a [facility] for long-term care. DVT ppx: Lovenox Code status: Assume Full Code Attestations 2 Medical Necessity Statement*: Patient presents with homicidal ideation, found to have acute EOTH intoxication with expected hospitalization to cross two midnights for , psychiatric care, alcohol withdrawal treatment, and supportive care. Time Spent in Patient Care: 15 minutes Coding Level of Care Code Acute Code for [facility] Diagnoses Tachyarrhythmia R00.0 Suicidal ideations R45.851 Alcoholic intoxication F10.929 Elevated CPK R74.8 Renal insufficiency N28.9 Transaminitis R74.01 Metabolic acidosis E87.20 Heavy cigarette smoker F17.210 Bipolar 1 disorder, depressed, mild F31.31 Time Spent (min) 15
[2024-10-17 15:13] LABS: C.Diff PCR (Lab) NEGATIVE (Negative)
[2024-10-17] MEDS: LORazepam 2 mg/mL INJ 1 mL IVP ×2 (16:58→21:01)
--- NOTE | 2024-10-17 17:57 | PC.NURSE ---
Addendum entered by Miguelito Lux RN 10/17/24 18:18: Patient rested in bed for about half of the day. Was able to walk about 100feet with minimal assisstance and spend a couple hours up to a recliner. After titrating off of precedex this morning, patient was mostly calm and cooperative for most of the shift. Around 4pm he started to get agitated again, accusing nurses of stealing his money, and breaking his phone. Making threats to punch nurses in the face. Patient also started having auditory hallucinations. Nurse administered ATIVAN, agitation continued, precedex was restarted. Original Note: Patient rested in bed for about half of the day. Was able to walk about 100feet with minimal assisstance and spend a couple hours up to a recliner. After titrating off of precedex this morning, patient was mostly calm and cooperative for most of the shift. Around 4pm he started to get agitated again, accusing nurses of stealing his money, and breaking his phone. Making threats to punch nurses in the face. Patient also started having auditory hallucinations. Nurse administered haldol, agitation continued, precedex was restarted.
--- NOTE | 2024-10-17 18:01 | PC.NURSE ---
Dr phan rounded, ordered 2mg of oral haldol for agitation.
[2024-10-17] MEDS: haloperidol 1 mg Tablet 2 MG PO (18:16)
--- NOTE | 2024-10-17 18:24 | W.PM.PSYCONS ---
Providers/Reason for Consult Consulting Physican/Specialty*: Chidi Felipe MD/Psychiatry Reason for Consult*: agitation/alcohol withdrawal Attending Physician: Peyton Saldaña MD Primary Care Provider: Marlena Nolan MD Psych Consult HPI History of Present Illness Richard Cmobs is a 74 year old male with history of alcohol dependence and signficant alcohol related withdrawal symptoms who was admitted to the intensive care unit with a blood alcohol level of 228 initially. The patient had allegedly made threats of planning to shoot himself or walk in front of it traffic while intoxicated. He has a history of increased tolerance to alcohol and presented with significant medical indicators suggesting potential withdrawal symptoms. The patient was seen on the intensive care unit. He had appeared agitated and had a difficult time with providing any reasonable history at this time. He had repeatedly stated that he had 2 checks that were coming in to his account and wanted his phone so that he could activated as he had suggested that somehow staff may be somehow trying to steal his money. The patient had been seen by [facility] as he had apparently utilized the services but had not been treated for any mental health conditions in several months. The patient was unable to prescribe or provide any reasonable history regarding his care. He was last seen in outpatient clinic in April 2024. His medications at that time included Wellbutrin SR 200 mg daily, Klonopin 1 mg at night, metoprolol 50 mg twice a day, and Seroquel 25 mg at night. Patient was unable to provide any information regarding compliance with his medications. Previous records had supported a history of PTSD, alcohol dependence, and major depressive disorder. Excerpt from [facility] Intake from 05/20/24 below: [facility] Intake Time In Time In: 13:30 Date of Service: 05/20/24 Setting: Office Visit Intake Is patient being treated for pain today?: No Have you been seen by your primary care provider or [employer] [facility] [facility] in the past 12 months?: Yes Allergies ketorolac Allergy (Unknown, Verified 05/20/24 13:35) Unknownnaproxen Allergy (Unknown, Verified 05/20/24 13:35) Unknownvortioxetine [From Brintellix] Allergy (Unknown, Verified 05/20/24 13:35) Unknown Home Medications - Last Reconciled 05/20/24 by Shanelle Vanessa bupropion HCl (Wellbutrin SR) 200 mg PO QAM clonazepam (Klonopin) 1 mg PO .7:30 pm metoprolol tartrate 50 mg PO BID quetiapine (Seroquel) 25 mg PO BEDTIME trazodone 100 mg PO BEDTIME PRN Items Completed Today Items Completed Today: Medications Reconciliation Nurse Completing Intake SHAY Peck Time Out Time Out: 13:35 Vital Signs 01/16/2409:52 05/20/2413:36 Height 6 ft 6 ft Weight 230 lb 216 lb 6 oz BMI 31.1 29.3 BP 154/93 116/72 Blood Pressure Location Rt brachial Lt brachial Position Sitting Sitting Respiration 18 16 Pulse 64 85 Pulse Source Monitor Monitor Temp 97.0 F L 97.8 F Temp Source Oral Oral Risks Date Date of last Risks: 05/20/24 Suicide Risk Assessment Little interest or pleasure in doing things: not at all Feeling down, depressed, or hopeless: not at all PHQ-2 Score: 0 Total (If greater than 3 please do full PHQ-9): No Have you had suicidal thoughts?: Not At All Do you ever wish you weren't alive anymore?: Not At All Total Score: 0 Patient score 3 or greater or had suicidal thoughts?: No Assessments Assessment Dates Next Due [facility] Assessment Dates Next Due: Date of Next AIMS 05/20/24 AIMS - 6 months Date of Next AIMS: 05/20/24 Muscles Of Facial Expression: 0=None Lips And Perioral Area: 0=None Jaw: 0=None Tongue: 0=None Upper (Arms, Wrists, Hands, Fingers): 0=None Lower (Legs, Knees, Ankles, Toes): 0=None Neck, Shoulders, Hips: 0=None Severity Of Abnormal Movements: 0=None Incapacitation Due To Abnormal Movements: 0=None Patient's Awareness Of Abnormal Movements: 0=None Current Problems With Teeth And/Or Dentures: No (0) Does Patient Usually Wear Dentures: No (0) AIMS Score: 0 [facility] Medical History (Updated 08/28/23 @ 13:34 by Nina Braga, [facility]) Alcohol dependence in remission in early remission, last alcohol use 06/25/23Psychiatric care Heavy cigarette smoker Chronic post-traumatic stress disorder Bipolar 1 disorder, depressed, mild Family History (Updated 06/25/23 @ 13:47 by Juan Ingram MD) Other Cancer Social History (Updated 06/25/23 @ 13:47 by Juan Ingram MD) Smoking and tobacco/nicotine status: current every day tobacco/nicotine user Alcohol intake: current Psychiatry SOAP Note Diagnosis (1) Bipolar 1 disorder, depressed, mild: Status: Chronic (2) Chronic post-traumatic stress disorder: Status: Chronic (3) Alcohol dependence in remission: Permanent Problem Comments: in early remission, last alcohol use 06/25/23 Status: Acute (4) Heavy cigarette smoker: Status: Chronic Psychiatry SOAP Note Time In: 13:35 Time Out: 13:45 Subjective Subjective: PRIMARY CONCERN: Tran's been in the hospital RECENT/INTERVAL HISTORY: 74 yr old male, presents to [facility] today by himself for medication management. -Sleep pattern reported as not so good, Tran has been in and out of the hospital so been staying up there with her when she is in there. -Describes mood today as Stressed out, Tran broke her hip, was in the hospital, she left a couple of times AMA, so she had to go in front of a county judge, now she is in a [place] [facility], not sure if she is getting out or not, its been a mess. -Endorses nutritional intake reported as varies haven't been eating too good with being so stressed , has home health aide but haven't seen her in maybe 2-3 weeks because I have been at the hospital with Tran ; home health nurse setting up medications. -Richard denies suicidal ideation/plan, denies homicidal ideation/plan; denies auditory/visual hallucinations; no delusions or paranoia. Meds Home Medications and Allergies Home Medications Medication Instructions Recorded Confirmed Last Taken Type metoprolol tartrate 50 mg tablet 50 mg PO BID 01/22/23 10/15/24 Unknown History bupropion HCl 200 mg tablet,12 hr 200 mg PO QAM #30 tabs 05/20/24 10/15/24 Unknown Rx sustained-release (Wellbutrin SR) hydroxyzine pamoate 25 mg capsule 25 mg PO DAILY PRN anxiety #30 caps 06/04/24 10/15/24 Unknown Rx (Vistaril) tamsulosin 0.4 mg capsule 0.4 mg PO QPM 07/04/24 10/15/24 Unknown History metoprolol tartrate 25 mg tablet 12.5 mg PO BID 10/14/24 10/15/24 Unknown History pantoprazole 20 mg tablet,delayed 20 mg PO DAILY 10/14/24 10/15/24 Unknown History release (Protonix) quetiapine 100 mg tablet 100 mg PO BEDTIME 10/14/24 10/15/24 Unknown History quetiapine 50 mg tablet 50 mg PO .AFTER LUNCH 10/14/24 10/15/24 Unknown History ramelteon 8 mg tablet 8 mg PO BEDTIME PRN Sleep 10/14/24 10/15/24 Unknown History trazodone 150 mg tablet 150 mg PO QPM 10/14/24 10/15/24 Unknown History clonazepam 1 mg tablet 1 mg PO QPM 10/15/24 10/15/24 Unknown History Allergies Allergy/AdvReac Type Severity Reaction Status Date / Time ketorolac Allergy Unknown Unknown Verified 05/20/24 13:35 naproxen Allergy Unknown Unknown Verified 05/20/24 13:35 vortioxetine Allergy Unknown Unknown Verified 05/20/24 13:35 [From BrReleadellix] Current Medications Current Medications Generic Name Dose Route Start Last Admin Trade Name Freq PRN Reason Stop Dose Admin Enoxaparin Sodium 40 mg 10/15/24 22:30 10/16/24 23:00 Enoxaparin 40 Mg/0.4 Ml Syringe SUBCUT 40 mg Q24H FAY Administration Folic Acid 1 mg 10/16/24 09:00 10/17/24 08:36 Folic Acid 1 Mg Tablet PO Not Given DAILY FAY Sodium Chloride 1,000 mls @ 75 mls/hr 10/16/24 13:30 10/17/24 16:29 Sodium Chloride 0.9% IV 75 mls/hr .[id number] FAY Administration Dexmedetomidine/Sodium Chloride 400 mcg in 100 mls @ 0 mls/hr 10/16/24 22:30 10/17/24 18:14 Precedex IV 0.3 mcg/kg/hr .Q0M FAY 7.58 mls/hr Titration Protocol Per Protocol Lorazepam 2 mg 10/15/24 22:08 10/17/24 16:58 Lorazepam 2 Mg/Ml Inj 1 Ml IVP 2 mg PRN PRN Administration WITHDRAWAL Protocol Multivitamins Therapeutic 1 tab 10/16/24 09:00 10/17/24 08:36 Multivitamin Therapeutic Tablet PO Not Given DAILY [facility] Thiamine Mononitrate 100 mg 10/16/24 09:00 10/17/24 08:37 Thiamine 100 Mg Tablet PO Not Given DAILY [facility] PFSH NPU PFSH: Medical History Alcohol use disorder, severe, dependence Alcohol dependence in remission in early remission, last alcohol use 06/25/23 Psychiatric care Heavy cigarette smoker Chronic post-traumatic stress disorder Bipolar 1 disorder, depressed, mild Family History Other Cancer Social History Smoking and tobacco/nicotine status: current every day tobacco/nicotine user Alcohol intake: current Mental Status Exam MSE Comments: Disheveled male malodorous male with extremely poor hygiene who appeared in significant distress. His speech was rambling and loud at times. There is no evidence of any abnormal involuntary motor movements tics or tremors but considerable psychomotor agitation. His mood was not endorsed. His affect appeared dyphoric. He did appear to be responding to internal stimuli. There was evidence of delusional thinking and paranoia. He denied any homicidal or suicidal ideation. His insight was poor. His judgment was impaired. His impulse control was impaired. His attention span appeared impaired. He was alert and oriented to person and place. His recent and remote memory were impaired. He was hostile and at times verbally and physically threatening. Vitals/I&O/Wt Last Vital Signs Temp 98.1 F 10/17/24 16:30 Pulse 117 H 10/17/24 16:30 Resp 24 H 10/17/24 16:30 BP 133/106 10/17/24 16:30 Pulse Ox 96 10/17/24 16:30 O2 Del Method Room Air 10/17/24 16:30 10/17/24 10/17/24 10/17/24 06:59 14:59 22:59 Intake Total 1149.257 / 1735.582 325.507 / 411.649 6690.454 / 1433.961 Output Total 650 / 650 Balance 1149.257 / 1735.582 325.507 / 325.507 458.454 / 783.961 Weight last 48 hrs Weight 99.5 kg Weight 101 kg Weight 101.5 kg Data NPU 10/17/24 03:51 10/17/24 03:51 A&P Assessment and plan (1) Alcohol use disorder, severe, dependence: (2) Suicidal ideations: (3) Chronic post-traumatic stress disorder: (4) 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 white male having alcohol related hallucinosis, and hx of alcohol withdrawal symptoms with past history of PTSD, MDD currently on hold. Continue medical treatment, recommend use of haldol for agitation particularly in context of hallucinations. Recommend hold on psychiatric medications otherwise. Patient resistant to treatment for depression/anxiety/substance abuse. Continue hold for now. Will follow. Attestations NPU Medical Necessity Statement*: continue medical treatment at this time with consideration for geropsychiatric admission if suicidality persists. 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
[2024-10-17] MEDS: loperamide 2 mg Capsule PO (21:00)
[2024-10-17] MEDS: enoxaparin 40 mg/0.4 mL Syringe SUBCUT (21:37)
[2024-10-17] MEDS: dexmedeTOMIDine 0.9 % NaCL 400 MCG/100 ML PREMIX 7.58 MCG IV (22:17)
[2024-10-18] VITALS (89 sets, daily range): BP systolic 74–167; BP diastolic 48–117; PULSE 79–132; RESP 14–44; TEMP 36.7–37.3; O2SAT 91–100
[2024-10-18] MEDS: LORazepam 2 mg/mL INJ 1 mL IVP ×4 (00:11→23:55)
--- NOTE | 2024-10-18 01:38 | PC.NURSE ---
Patient beginning to have crackles in lungs, Dr. Duong notified and ordered to stop fluids.
[2024-10-18 05:47] LABS: Ammonia 29 umol/L (16-60); Anion Gap 13.3 (5-19); Blood Urea Nitrogen 13 mg/dL (8-23); Calcium 7.9 mg/dL (8.5-10.5); Carbon Dioxide 25 mmol/L (22-29); Chloride 107 mmol/L (98-107); Creatinine Clr Calc Pharmacy 63.3975; Glucose 121 mg/dL (65-115); Osmolality Calculated 295 mOsm/kg (285-295); Potassium 3.3 mmol/L (3.5-5.1); Sodium 142 mmol/L (136-145)
[2024-10-18] MEDS: folic acid 1 mg Tablet PO (08:43)
[2024-10-18] MEDS: multivitamin therapeutic Tablet 1 TAB PO (08:43)
[2024-10-18] MEDS: potassium chloride ER 20 mEq Tablet 40 MEQ PO ×2 (08:43→17:16)
[2024-10-18] MEDS: thiamine 100 mg Tablet PO (08:43)
[2024-10-18] MEDS: haloperidol 1 mg Tablet 2 MG PO ×2 (08:44→17:16)
--- NOTE | 2024-10-18 09:37 | PC.NURSE ---
Upon morning assessment, patient was on 0.2mcg/kg/hr of precedex and sleeping. Nurse titrated off of precedex. Patient is currently agitated, repeatedly yelling at staff fuck you . Patient recently received PO haldol, does not currently appear to be a danger to himself or others, will continue to monitor. He is oriented to self only. Believes nurses are cult members and this he is underground. Patient is upset due to not being able to call anyone. Nurse has offered hospital phone, but the the only number the patient knows is disconnected. Sometimes he will carry on a conversation one the phoen despite no one being on the other line. Nurse attempted to get contact information from the patient's cell phone so he could make calls, but his phone is out of battery and is broken (does not accept a charge).
--- NOTE | 2024-10-18 11:11 | P.PN_ITS ---
Subjective 2 Subjective: Seen him at bedside this morning. Overnight he became agitated again and required precedex. This morning he is still drowsy, still has slurred speech and confused. Medications: Reviewed: Yes Vitals/I&O/Wt Last Vital Signs Temp 98.1 F 10/18/24 09:30 Pulse 97 10/18/24 09:30 Resp 18 10/18/24 09:30 BP 145/102 10/18/24 09:30 Pulse Ox 96 10/18/24 09:30 O2 Del Method Room Air 10/18/24 09:30 10/17/24 10/18/24 10/18/24 22:59 06:59 14:59 Intake Total 1131.613 / 1457.120 594.560 / 2051.680 245.985 / 245.985 Output Total 650 / 650 Balance 481.613 / 807.120 594.560 / 1401.680 245.985 / 245.985 Weight last 48 hrs Weight 101.786 kg Weight 99.5 kg Physical Exam 2 Narrative: General: Patient is drowsy. Head: Normocephalic. Atraumatic. EOM intact. Neck: No JVD. Cardiovascular: RRR. No gallops. No murmurs. Markedly tachycardic. Soft blood pressure. Lungs: Clear to auscultation, no use of accessory muscles, no crackles or wheezes. Skin: No jaundice. No rashes. Abdomen: Normal bowel sounds, abdomen soft and nontender. Genito Urinary: Genital exam not performed since complaints not related. Rectal: Rectal exam not performed since no symptoms indicated blood loss. Extremities: No cyanosis or clubbing. Abrasions and bruises present on lower extremities Musculoskeletal: No swollen or erythematous joints. Neurological: Moves all 4 extremities. No myoclonus. Data 10/17/24 03:51 10/18/24 04:56 A&P Assessment and plan (1) Tachyarrhythmia: Patient developed tachyarrhythmia in ED Telemetry with narrow complex somewhat irregular at times tachycardia Repeat EKGs appear to be sinus tachycardia rather than A-fib Will stop Cardizem drip Continuous telemetry monitoring, obtain EKGs as needed to confirm rhythm Received IV fluids Treat underlying withdrawal May consider beta-ton if hemodynamic support (2) Suicidal ideations: Suicidal ideation in the setting of alcohol intoxication Will need psychiatric evaluation after clinically improved Suicide precautions (3) Alcoholic intoxication: Patient currently intoxicated, high risk for proceeding with acute withdrawal CIIL protocol Thiamine, folic acid (4) Elevated CPK: Monitor renal function (5) Renal insufficiency: Baseline renal function unclear given labile labs May have component of CKD vs SHIRA on CKD Received IVF boluses in ED Strict I&Os Daily weights Renally dose medications Repeat labs in AM (6) Transaminitis: Related to EOTH consumption Continue to monitor (7) Metabolic acidosis: Suspected related to alcoholic ketoacidosis Recieved fluids Trend labs (8) Heavy cigarette smoker: Would benefit from cessation (9) Bipolar 1 disorder, depressed, mild: Continue home medications after list is updated Plan 10/16/24 EKG and monitor showing normal sinus tachycardia. Has been off Cardizem drip. 2D echo done showed CONCLUSIONS LV systolic function is normal with EF of 55-60% Mild mitral regurgitation Mild tricuspid regurgitation No comparison studies are available. Will need psychiatry evaluation once more awake and alert. Continue to monitor in ICU for alcohol withdrawal Creatinine improving to 1.7 today. Will start on IV fluids normal saline at 60 cc per hour Will keep n.p.o. for now 10/17/24 Psychiatry consulted, to see patient later today. Probably in addition to alcohol intoxication, also has psychosis component. Will continue to monitor in ICU for alcohol withdrawal Creatinine improving to 1.4 today, AST/ALT stable. Case discussed with case management, as per the guardian patient needs to be placed in a skilled nursing for long-term care. 10/18/24 Started on po haldol for agitation as per psychiatry. patient was still agitated yesterday during psych eval and needs reeval for further management. Tx to [facility] for further care. I do not think he is in withdrawal anymore. But would need a sitter. Has owning, likely due to dementia component in addition to psychosis. Awaiting for discharge planning. DVT ppx: Lovenox Code status: Assume Full Code Attestations 2 Medical Necessity Statement*: Awaiting discharge to skilled nursing. Time Spent in Patient Care: 20 minutes Coding Level of Care Code Acute Code for [facility] Diagnoses Tachyarrhythmia R00.0 Suicidal ideations R45.851 Alcoholic intoxication F10.929 Elevated CPK R74.8 Renal insufficiency N28.9 Transaminitis R74.01 Metabolic acidosis E87.20 Heavy cigarette smoker F17.210 Bipolar 1 disorder, depressed, mild F31.31 Time Spent (min) 20
--- NOTE | 2024-10-18 13:23 | P.NPUPN_ITS ---
Subjective NPU 2 Subjective: 74-year-old male with a history of alcoh ol dependence, PTSD, and major depressive disorder admitted to the ICU with severe alcohol with withdrawal and hallucinations along with delusions. Patient continued to remain delusional reporting that someone here was trying to take his money from the account. He did appear more awake and alert on interview today. He had reported that he was not having thoughts of hurting himself or others. The patient had stated that he was in the hospital today although he had initially reported that he thought that he was in a whore house. The patient reported that he wished to go home in the next few days and stated that he had been previously sober off of alcohol for several years before relapsing this year. He reported that his mood was fine. He had been able to recall having been on medications on an outpatient basis and requested that these be restarted if possible. He had stated that he had been on Seroquel as well as Klonopin on an outpatient basis. He had reported having received treatment at [facility]. Previous records were reviewed and the patient's last visit in outpatient clinic was in April 2024. He had been on Wellbutrin SR 200 mg daily, Klonopin at night along with Seroquel at 25 mg at night. Mental Status Exam 2 MSE Comments: Disheveled male with poor hygiene who appeared in less signficant distress today. His speech was slurred with less rambling and normal volume. There is no evidence of any abnormal involuntary motor movements, tics,or tremors but considerable psychomotor agitation. His mood was reported as good. His affect appeared irritable and subdued. He did not appear to be responding to internal stimuli. There was evidence of delusional thinking and paranoia. He denied any homicidal or suicidal ideation. His insight was poor. His judgment was impaired. His impulse control was impaired. His attention span appeared impaired. He was alert and oriented to person and place. His recent and remote memory were impaired. Vitals/I&O/Wt Last Vital Signs Temp 98.0 F 10/18/24 12:15 Pulse 109 H 10/18/24 13:15 Resp 44 H 10/18/24 13:15 BP 145/117 10/18/24 13:15 Pulse Ox 95 10/18/24 13:15 O2 Del Method Room Air 10/18/24 12:15 10/17/24 10/18/24 10/18/24 22:59 06:59 14:59 Intake Total 1131.613 / 1457.120 594.560 / 2051.680 245.985 / 245.985 Output Total 650 / 650 Balance 481.613 / 807.120 594.560 / 1401.680 245.985 / 245.985 Weight last 48 hrs Weight 101.786 kg Weight 99.5 kg Data NPU 10/17/24 03:51 10/18/24 04:56 A&P Assessment and plan (1) Alcohol use disorder, severe, dependence: (2) Suicidal ideations: (3) Chronic post-traumatic stress disorder: (4) 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 white male having alcohol related hallucinosis, and hx of alcohol withdrawal symptoms with past history of PTSD, MDD currently on involuntary hold. 1.Continue medical treatment, 2.Continue Haldol 2mg bid for agitation and psychosis. 3.Recommend hold on psychiatric medications otherwise. 4.Patient resistant to treatment for depression/anxiety/substance abuse. 5.Continue involuntary hold for now but appears to be improving. 6.Will follow. Attestations NPU 2 Medical Necessity Statement*: continue medical treatment at this time with consideration for geropsychiatric admission if suicidality persists. 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
--- NOTE | 2024-10-18 15:00 | PC.NURSE ---
Patient requested to make a phone call. Nurse brought portable phone to the room, but explained to the patient that staff needs to dial the number for him since he has been known to call 911. Patient expressed understanding and gave a phone number to the nurse. Nurse called the number and it was the number to [facility] dispatch. WHen asked why he was attempting to call the [facility] office he stated so they can break me out of here . Nurse explained the 96 hour hold and provided the patient copies of the paperwork.
[2024-10-18] MEDS: loperamide 2 mg Capsule PO (17:16)
--- NOTE | 2024-10-18 18:16 | PC.NURSE ---
Shift summary: Patient has been agitated all shift, frequently yelling at staff, randomly yelling obscenities, trying to call a [employer] consultant's office in [place] to report himself being kidnapped, shaking side rails of bed. Patient did not appear to be at risk of harming himself or others, precedex not started because of this, ativan not indicated per ciwa scale. Patient has very poor impulse control, when give food, he attempts to put excessivly large amont of food into his mouth at once and has trouble chewing/swallowing because of it. May have aspirated today as he had a choking fit because of this, diet change to small/bit sized. Around 5 pm, patient started to become very agitated and heart rate increased to the 130's. Precedex was restarted, Dr Saldaña notified, she requests precedex to be turned off around 5 or 6am.
[2024-10-18] MEDS: OLANZapine 10 mg VIAL 5 MG IM (21:21)
[2024-10-18] MEDS: water for injection-sterile 10 ML (21:23)
[2024-10-18] MEDS: dexmedeTOMIDine 0.9 % NaCL 400 MCG/100 ML PREMIX 15.15 MCG IV (22:24)
[2024-10-18] MEDS: enoxaparin 40 mg/0.4 mL Syringe SUBCUT (22:42)
[2024-10-19] VITALS (50 sets, daily range): BP systolic 77–158; BP diastolic 60–104; PULSE 67–142; RESP 0–37; TEMP 35.7–37.2; O2SAT 87–100
--- NOTE | 2024-10-19 06:00 | XRR_ITS ---
PROCEDURE INFORMATION: Exam: XR Chest Exam date and time: 10/19/2024 5:55 AM Age: 74 years old Clinical indication: Wheezing; Additional info: Bilateral upper lobe wheexing TECHNIQUE: Imaging protocol: Radiologic exam of the chest. Views: 1 view. COMPARISON: CR XR chest 1V portable [id number] 10/15/2024 3:45 PM FINDINGS: Lungs: There are subtle bilateral infiltrates likely representing mild edema. No focal consolidation is appreciated. Pleural spaces: There may be small pleural effusions. No pneumothorax is identified. Heart/Mediastinum: The heart is enlarged. Bones/joints: Unremarkable. XR/XR chest 1V portable [id number] IMPRESSION: 1. Cardiomegaly with probable mild edema and small pleural effusions.
[2024-10-19] MEDS: folic acid 1 mg Tablet PO (08:30)
[2024-10-19] MEDS: haloperidol 1 mg Tablet 2 MG PO ×2 (08:30→17:05)
[2024-10-19] MEDS: thiamine 100 mg Tablet PO (08:30)
[2024-10-19] MEDS: multivitamin therapeutic Tablet 1 TAB PO (08:30)
[2024-10-19] MEDS: lanolin oint 7 gm 1 APPLIC TOPICAL (08:39)
[2024-10-19] MEDS: FUROsemide 10 mg/mL SDV 4mL 40 MG IVP (09:08)
[2024-10-19] MEDS: quetiapine 25 mg Tablet PO (09:16)
--- NOTE | 2024-10-19 11:11 | PM.PN ---
Subjective Subjective: No acute overnight events noted. Patient still in ICU since he is requiring Precedex for . Seen him at bedside this morning, has been coughing likely secondary to aspiration Medications: Reviewed: Yes Vitals/I&O/Wt Last Vital Signs Temp 96.3 F L 10/19/24 08:00 Pulse 69 10/19/24 08:00 Resp 22 H 10/19/24 08:00 BP 121/81 10/19/24 08:00 Pulse Ox 93 10/19/24 08:00 O2 Del Method Room Air 10/19/24 08:00 10/18/24 10/19/24 10/19/24 22:59 06:59 14:59 Intake Total 187.981 / 433.966 95.985 / 529.951 2.5 / 2.5 Output Total 750 / 750 Balance -562.019 / -316.034 95.985 / -220.049 2.5 / 2.5 Weight last 48 hrs Weight 101 kg Weight 101.786 kg Physical Exam Narrative: General: Patient is drowsy. Head: Normocephalic. Atraumatic. EOM intact. Neck: No JVD. Cardiovascular: RRR. No gallops. No murmurs. Markedly tachycardic. Soft blood pressure. Lungs: Bilateral coarse crackles present Skin: No jaundice. No rashes. Abdomen: Normal bowel sounds, abdomen soft and nontender. Genito Urinary: Genital exam not performed since complaints not related. Rectal: Rectal exam not performed since no symptoms indicated blood loss. Extremities: No cyanosis or clubbing. Abrasions and bruises present on lower extremities Musculoskeletal: No swollen or erythematous joints. Neurological: Moves all 4 extremities. No myoclonus. Data 10/17/24 03:51 10/18/24 04:56 A&P Assessment and plan (1) Tachyarrhythmia: Patient developed tachyarrhythmia in ED Telemetry with narrow complex somewhat irregular at times tachycardia Repeat EKGs appear to be sinus tachycardia rather than A-fib Will stop Cardizem drip Continuous telemetry monitoring, obtain EKGs as needed to confirm rhythm Received IV fluids Treat underlying withdrawal May consider beta-ton if hemodynamic support (2) Suicidal ideations: Suicidal ideation in the setting of alcohol intoxication Will need psychiatric evaluation after clinically improved Suicide precautions (3) Alcoholic intoxication: Patient currently intoxicated, high risk for proceeding with acute withdrawal CICT protocol Thiamine, folic acid (4) Elevated CPK: Monitor renal function (5) Renal insufficiency: Baseline renal function unclear given labile labs May have component of CKD vs SHIRA on CKD Received IVF boluses in ED Strict I&Os Daily weights Renally dose medications Repeat labs in AM (6) Transaminitis: Related to EOTH consumption Continue to monitor (7) Metabolic acidosis: Suspected related to alcoholic ketoacidosis Recieved fluids Trend labs (8) Heavy cigarette smoker: Would benefit from cessation (9) Bipolar 1 disorder, depressed, mild: Continue home medications after list is updated Plan 10/16/24 EKG and monitor showing normal sinus tachycardia. Has been off Cardizem drip. 2D echo done showed CONCLUSIONS LV systolic function is normal with EF of 55-60% Mild mitral regurgitation Mild tricuspid regurgitation No comparison studies are available. Will need psychiatry evaluation once more awake and alert. Continue to monitor in ICU for alcohol withdrawal Creatinine improving to 1.7 today. Will start on IV fluids normal saline at 60 cc per hour Will keep n.p.o. for now 10/17/24 Psychiatry consulted, to see patient later today. Probably in addition to alcohol intoxication, also has psychosis component. Will continue to monitor in ICU for alcohol withdrawal Creatinine improving to 1.4 today, AST/ALT stable. Case discussed with case management, as per the guardian patient needs to be placed in a senior living for long-term care. 10/18/24 Started on po haldol for agitation as per psychiatry. patient was still agitated yesterday during psych eval and needs reeval for further management. Tx to [facility] for further care. I do not think he is in withdrawal anymore. But would need a sitter. Has sundowning, likely due to dementia component in addition to psychosis. Awaiting for discharge planning. 10/19/24 Patient is still sundowning and agitated, requiring Precedex drip. Hence still continued to stay in ICU. Will start Zyprexa 5 mg at bedtime P.o. Seroquel 25 mg daily P.o. Ativan 1 mg 3 times daily as needed Continue p.o. Haldol twice daily Also chest x-ray reviewed, consistent with mild fluid overload. Will do IV Lasix 40 mg x 1 dose now and monitor for crackles and cough. If stays off Precedex drip will transfer him to [facility] for discharge planning Follow-up social work on Sunday for discharge planning DVT ppx: Lovenox Code status: Assume Full Code Attestations Medical Necessity Statement*: Requiring continue ICU management for Precedex drip for agitation. Meanwhile awaiting discharge to senior living. Time Spent in Patient Care: 20 minutes Coding Level of Care Code Acute Code for g Fwd Diagnoses Tachyarrhythmia R00.0 Suicidal ideations R45.851 Alcoholic intoxication F10.929 Elevated CPK R74.8 Renal insufficiency N28.9 Transaminitis R74.01 Metabolic acidosis E87.20 Heavy cigarette smoker F17.210 Bipolar 1 disorder, depressed, mild F31.31 Time Spent (min) 20
--- NOTE | 2024-10-19 14:16 | PC.NURSE ---
At approximately 1300, patient has woken up, alert. Oriented to person, place, time, and situation. Denies that he is currently suicidal. Doesn't remember the circumstances leading to his hospitalization. Nurse assisted patient in walking around the unit approximately 100 feet. At lunch with no problems. Nurse called Dr phan and Dr carreno and alerted them to sudden improvement in mental status in case they would like to speak with him in his current state, his mental status has been variable over the last 3 days so we are not sure how long he will be lucid.
[2024-10-19] MEDS: amiodarone 50 mg/mL SDV 3 mL 150 MG IVP (15:47)
--- NOTE | 2024-10-19 15:52 | P.NPUPN_ITS ---
Subjective NPU 2 Subjective: 74-year-old male with a history of alcoh ol dependence, PTSD, and major depressive disorder admitted to the ICU with severe alcohol with withdrawal and hallucinations along with delusions. The patient had been more clear. He continued to have periods of agitation that appear to be worse later in the afternoon. He had continued to remain on Haldol at this time. He denied having thoughts of hurting himself or others. He reported no desire to receive treatment for his alcohol use despite there being significant adverse consequences. He continued to report concerns that someone was trying to take his money from his account repeatedly asking staff to check his locker to see if they could find his card. Mental Status Exam 2 MSE Comments: Disheveled male with poor hygiene who appeared in less signficant distress today. His speech was slurred with less rambling and normal volume. There is no evidence of any abnormal involuntary motor movements, tics,or tremors but considerable psychomotor agitation. His mood was reported as allright. His affect appeared irritable and subdued. He did not appear to be responding to internal stimuli. There was continued evidence of delusional thinking and paranoia. He denied any homicidal or suicidal ideation. His insight was poor. His judgment was impaired. His impulse control was impaired. His attention span appeared impaired. He was alert and oriented to person and place. His recent and remote memory were impaired. Vitals/I&O/Wt Last Vital Signs Temp 97.4 F L 10/19/24 12:30 Pulse 118 H 10/19/24 14:00 Resp 26 H 10/19/24 12:30 BP 125/89 10/19/24 12:30 Pulse Ox 91 10/19/24 12:30 O2 Del Method Room Air 10/19/24 12:30 10/19/24 10/19/24 10/19/24 06:59 14:59 22:59 Intake Total 95.985 / 529.951 12.5 12.5 Balance 95.985 / -220.049 .. 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 white male having alcohol related hallucinosis, and hx of alcohol withdrawal symptoms with past history of PTSD, MDD currently on involuntary hold. 1.Continue medical treatment, 2.Continue Haldol 2mg bid for agitation and psychosis. 3.Recommend hold on psychiatric medications otherwise. 4.Patient resistant to treatment for depression/anxiety/substance abuse. 5.Continue involuntary hold for now but appears to be improving. He will likely not require inpatient psychiatric treatment once stabilized medically. 6.Will follow. Attestations [facility] 2 Medical Necessity Statement*: continue medical treatment at this time. 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
--- NOTE | 2024-10-19 15:52 | PC.NURSE ---
Addendum entered by Miguelito Lux RN 10/19/24 17:38: DUe to improvement in blood pressure, but heart rate continuing to be tachy, Dr Carreno ordered 5mg IVP metoprolol, given at 1626. ALso added on 50mG po metoprolol BID starting now, this is a home medication taken for a history of afib. Original Note: at 1524, patient became tachycardic. Heart rate in the 160's-180's. BP: 77/60. Due general lack of coordination/cooperation, unable to get patient to participate in vagal maneuvers. Nurse alerted Dr Carreno. Due to hypotension she decided against a beta ton. Patient has had a smilar episode a few days ago and 150mg of amiodarone was effective in lowering rate. 150mg of amiodarone ordered. Nurse administered amiodarone push slowly over 10 minutes. Heart rate has dropped, now between 130-140. BP has improved to 108/74. Nurse will continue to monitor and update Dr carreno,
[2024-10-19] MEDS: OLANZapine 5 mg TABLET PO (16:03)
[2024-10-19] MEDS: metoprolol tartrate 1 mg/1 mL SDV 5 mL 5 MG IVP (16:26)
[2024-10-19] MEDS: metoprolol tartrate 50 mg Tablet PO (17:05)
--- NOTE | 2024-10-19 17:41 | PC.NURSE ---
Shift Summary: Mental status has greatly improved today, by end of this shift he is alert, oriented to person, place, time, and situation. Does have some memory lapses and continues to obsess over his paycheck or cell phone. Lasix given today due to wheezing and coarse lung sounds this morning, lungs sounds greatly improved. WAlked about 100 feet around the unit today, 1minimum 1 person assist, preferably 2 person. Around 1530, patient became tachycardic, heart rate in the 180's and hypotensive, IVP amiodarone administered, after BP improvement IV metoprolol was administered, patient then restarted on home med of PO metoprolol. At time of this note, heart rate is 115.
[2024-10-19] MEDS: loperamide 2 mg Capsule PO (20:57)
[2024-10-19] MEDS: enoxaparin 40 mg/0.4 mL Syringe SUBCUT (21:31)
[2024-10-19] MEDS: ALPRAZolam 0.5 mg Tablet PO (22:45)
[2024-10-20] VITALS (50 sets, daily range): BP systolic 85–166; BP diastolic 54–110; PULSE 82–121; RESP 21–30; TEMP 36.3–37.6; O2SAT 90–99; BMI 34.5
[2024-10-20] MEDS: OLANZapine 5 mg TABLET PO ×3 (01:09→17:17)
--- NOTE | 2024-10-20 01:14 | PC.NURSE ---
Zyprexa ONCE: Patient had become increasingly agitated and anxious stating I do not like this hospital and want to leave and attempting to get out of bed. Patient was redirected several times and then began asking for something to help him sleep. Dr. Traylor gave a telephone order for 5mg zyprexa PO ONCE.
[2024-10-20] MEDS: LORazepam 2 mg/mL INJ 1 mL 1 MG IVP ×3 (03:51→22:03)
--- NOTE | 2024-10-20 04:17 | PC.NURSE ---
Ativan ONCE: Patient became increasingly agitated after PO zyprexa stating it did not work. Patient made more attempts to get out of bed and leave. Dr. Duong gave a telephone order for 1mg ativan IVP ONCE.
[2024-10-20 04:37] LABS: Basophils % 0.3 %; Eosinophils # 0.6 10^3/uL (0.0-0.8); Eosinophils % 4.9 %; Hematocrit 40.3 % (37-53); Lymphocytes % 25.9 %; Mean Corpuscular Volume 94.2 fl (82-101); Mean Platelet Volume 11.6 fL (7.4-10.4); Monocytes # 1.5 10^3/uL (0.2-0.9); Monocytes % 12.6 %; Neutrophils # 6.46 10^3/uL (1.8-7.7); Neutrophils % 55.3 %; Nucleated Red Blood Cells % 0 %; Platelet Count 129 10^3/cmm (157-399); Red Blood Count 4.28 10^6/uL (3.85-5.65); Red Cell Distribution Width 13.2 % (12.1-15.1)
[2024-10-20 04:48] LABS: Alanine Aminotransferase 67 U/L (0-41); Albumin Level 3.4 g/dL (3.5-5.2); Alkaline Phosphatase 152 U/L (40-130); Blood Urea Nitrogen 10 mg/dL (8-23); Calcium 8.9 mg/dL (8.5-10.5); Carbon Dioxide 28 mmol/L (22-29); Chloride 98 mmol/L (98-107); Creatinine Clr Calc Pharmacy 54.1317; Glucose 107 mg/dL (65-115); Magnesium 1.7 mg/dL (1.7-2.3); Osmolality Calculated 286 mOsm/kg (285-295); Sodium 138 mmol/L (136-145); Total Bilirubin 0.6 mg/dL (0.15-1.2); Total Protein 6.4 g/dL (6.6-8.7)
[2024-10-20 04:50] LABS: Anion Gap 15.8 (5-19); Aspartate Amino Transferase 42 U/L (0-40); Potassium 3.8 mmol/L (3.5-5.1)
[2024-10-20 05:04] LABS: Slide Review Slide Review Perform
[2024-10-20] MEDS: folic acid 1 mg Tablet PO (08:19)
[2024-10-20] MEDS: multivitamin therapeutic Tablet 1 TAB PO (08:19)
[2024-10-20] MEDS: metoprolol tartrate 50 mg Tablet PO ×2 (08:19→20:37)
[2024-10-20] MEDS: potassium chloride ER 20 mEq Tablet 40 MEQ PO ×2 (08:20→15:28)
[2024-10-20] MEDS: haloperidol 1 mg Tablet 2 MG PO (08:20)
[2024-10-20] MEDS: ALPRAZolam 0.5 mg Tablet PO ×2 (08:20→20:37)
[2024-10-20] MEDS: piperacillin-tazobactam 3.375 GM in sodium chloride 0.9% (plus) 50 ML IV ×2 (08:20→15:28)
[2024-10-20] MEDS: thiamine 100 mg Tablet PO (08:20)
--- NOTE | 2024-10-20 14:44 | PM.PN ---
Subjective Subjective: No acute overnight events noted. He has been off Precedex drip since yesterday morning. Seen him at bedside this morning, complaint of not eating soft diet, he wants to have a regular diet. Seemed somewhat agitated Medications: Reviewed: Yes Vitals/I&O/Wt Last Vital Signs Temp 99.4 F 10/20/24 08:00 Pulse 87 10/20/24 12:30 Resp 20 H 10/19/24 22:30 BP 85/60 10/20/24 12:30 Pulse Ox 94 10/20/24 12:30 O2 Del Method Room Air 10/20/24 05:00 10/19/24 10/20/24 10/20/24 22:59 06:59 14:59 Intake Total 222 / 234.5 922 / 1156.5 50 / 50 Output Total 1000 / 1000 Balance -778 / -765.5 922 / 156.5 50 / 50 Weight last 48 hrs Weight 103 kg Weight 101 kg Physical Exam Narrative: General: Alert and awake, oriented to self Head: Normocephalic. Atraumatic. EOM intact. Neck: No JVD. Cardiovascular: RRR. No gallops. No murmurs. Markedly tachycardic. Soft blood pressure. Lungs: Bilateral coarse crackles present Skin: No jaundice. No rashes. Abdomen: Normal bowel sounds, abdomen soft and nontender. Genito Urinary: Genital exam not performed since complaints not related. Rectal: Rectal exam not performed since no symptoms indicated blood loss. Extremities: No cyanosis or clubbing. Abrasions and bruises present on lower extremities Musculoskeletal: No swollen or erythematous joints. Neurological: Moves all 4 extremities. No myoclonus. Data 10/20/24 03:51 10/20/24 03:51 A&P Assessment and plan (1) Tachyarrhythmia: Patient developed tachyarrhythmia in ED Telemetry with narrow complex somewhat irregular at times tachycardia Repeat EKGs appear to be sinus tachycardia rather than A-fib Will stop Cardizem drip Continuous telemetry monitoring, obtain EKGs as needed to confirm rhythm Received IV fluids Treat underlying withdrawal May consider beta-ton if hemodynamic support (2) Suicidal ideations: Suicidal ideation in the setting of alcohol intoxication Will need psychiatric evaluation after clinically improved Suicide precautions (3) Alcoholic intoxication: Patient currently intoxicated, high risk for proceeding with acute withdrawal CIWA protocol Thiamine, folic acid (4) Elevated CPK: Monitor renal function (5) Renal insufficiency: Baseline renal function unclear given labile labs May have component of CKD vs SHIRA on CKD Received IVF boluses in ED Strict I&Os Daily weights Renally dose medications Repeat labs in AM (6) Transaminitis: Related to EOTH consumption Continue to monitor (7) Metabolic acidosis: Suspected related to alcoholic ketoacidosis Recieved fluids Trend labs (8) Heavy cigarette smoker: Would benefit from cessation (9) Bipolar 1 disorder, depressed, mild: Continue home medications after list is updated Plan 10/16/24 EKG and monitor showing normal sinus tachycardia. Has been off Cardizem drip. 2D echo done showed CONCLUSIONS LV systolic function is normal with EF of 55-60% Mild mitral regurgitation Mild tricuspid regurgitation No comparison studies are available. Will need psychiatry evaluation once more awake and alert. Continue to monitor in ICU for alcohol withdrawal Creatinine improving to 1.7 today. Will start on IV fluids normal saline at 60 cc per hour Will keep n.p.o. for now 10/17/24 Psychiatry consulted, to see patient later today. Probably in addition to alcohol intoxication, also has psychosis component. Will continue to monitor in ICU for alcohol withdrawal Creatinine improving to 1.4 today, AST/ALT stable. Case discussed with case management, as per the guardian patient needs to be placed in a alf for long-term care. 10/18/24 Started on po haldol for agitation as per psychiatry. patient was still agitated yesterday during psych eval and needs reeval for further management. Tx to [facility] for further care. I do not think he is in withdrawal anymore. But would need a sitter. Has sundowning, likely due to dementia component in addition to psychosis. Awaiting for discharge planning. 10/19/24 Patient is still sundowning and agitated, requiring Precedex drip. Hence still continued to stay in ICU. Will start Zyprexa 5 mg at bedtime P.o. Seroquel 25 mg daily P.o. Ativan 1 mg 3 times daily as needed Continue p.o. Haldol twice daily Also chest x-ray reviewed, consistent with mild fluid overload. Will do IV Lasix 40 mg x 1 dose now and monitor for crackles and cough. If stays off Precedex drip will transfer him to [facility] for discharge planning Follow-up social work on Sunday for discharge planning 10/20/24 He still has agitation occasionally. Will do Zyprexa 5 mg twice daily, continue Haldol 2 mg twice daily. Follow-up psychiatry for further recommendations. WBC count trending up to 11.7, creatinine 1.4 Will add IV Zosyn 3.375 mg every 8 hours for possible aspiration pneumonia 2D echo normal Needs speech and swallow eval. Continue to monitor Follow-up case management for discharge planning DVT ppx: Lovenox Code status: Assume Full Code Attestations Medical Necessity Statement*: He needs continued hospitalization for management of possible aspiration pneumonia while awaiting for discharge planning Time Spent in Patient Care: 20 minutes Coding Level of Care Code Acute Code for [facility] Fwd Diagnoses Tachyarrhythmia R00.0 Suicidal ideations R45.851 Alcoholic intoxication F10.929 Elevated CPK R74.8 Renal insufficiency N28.9 Transaminitis R74.01 Metabolic acidosis E87.20 Heavy cigarette smoker F17.210 Bipolar 1 disorder, depressed, mild F31.31 Time Spent (min) 20
[2024-10-20] MEDS: loperamide 2 mg Capsule PO (14:57)
[2024-10-20] MEDS: nicotine 21 mg Patch 1 PATCH TRANSDERMA (15:40)
--- NOTE | 2024-10-20 17:30 | P.NPUPN_ITS ---
Subjective NPU 2 Subjective: 74-year-old male with a history of alcoh ol dependence, PTSD, and major depressive disorder admitted to the ICU with severe alcohol with withdrawal and hallucinations along with delusions. The patient did not appear to be perseverating regarding his money that was in a locker. He had continued to have periods of brief agitation particularly worse at night. The patient had been compliant with taking oral medications but had needed Precedex yesterday. Patient appeared unknowing regarding the fact that he had recently been placed under guardianship.The patient had requested that he be allowed to speak with his who was currently in another care home for a broken hip. Mental Status Exam 2 MSE Comments: Disheveled male with poor hygiene who appeared in less significant distress today. His speech was slurred but more productive though difficult to understand. There is no evidence of any abnormal involuntary motor movements, tics,or tremors but considerable psychomotor agitation. His mood was reported as okay. His affect appeared irritable. He did not appear to be responding to internal stimuli. There was no evidence of delusional thinking and no paranoia. He denied any homicidal or suicidal ideation. His insight was poor. His judgment was impaired. His impulse control was impaired. His attention span appeared impaired. He was alert and oriented to person and place. His recent and remote memory were impaired. 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 white male having alcohol related hallucinosis, and hx of alcohol withdrawal symptoms with past history of PTSD, MDD currently on involuntary hold. 1.Continue medical treatment, 2.Discontinue Haldol and resume Zyprexa 5mg bid. Discuss with guardian about legal placement, he may benefit from inpatient alcohol rehabilitation program. 3.Recommend hold on psychiatric medications otherwise. 4.Patient resistant to treatment for depression/anxiety/substance abuse. 5.Continue involuntary hold for now but appears to be improving. He will likely not require inpatient psychiatric treatment once stabilized medically. 6.Will follow. Attestations [facility] 2 Medical Necessity Statement*: continue medical treatment at this time. 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
[2024-10-20] MEDS: enoxaparin 40 mg/0.4 mL Syringe SUBCUT (22:03)
[2024-10-21] VITALS (20 sets, daily range): BP systolic 120–160; BP diastolic 83–110; PULSE 85–117; RESP 15–40; TEMP 36.4–36.5; O2SAT 93–97
[2024-10-21] MEDS: piperacillin-tazobactam 3.375 GM in sodium chloride 0.9% (plus) 50 ML IV ×3 (01:52→07:53)
[2024-10-21 05:06] LABS: Basophils # 0.1 10^3/uL (0.0-0.1); Basophils % 0.5 %; Eosinophils # 0.5 10^3/uL (0.0-0.8); Eosinophils % 4.7 %; Hematocrit 41.3 % (37-53); Lymphocytes # 2.3 10^3/uL (0.8-4.8); Lymphocytes % 22.9 %; Mean Corpuscular HGB Conc 34.1 g/dL (30-55); Mean Corpuscular Hemoglobin 31.6 pg (27-33); Mean Corpuscular Volume 92.6 fl (82-101); Mean Platelet Volume 10.2 fL (7.4-10.4); Monocytes # 1.7 10^3/uL (0.2-0.9); Monocytes % 17.5 %; Neutrophils # 5.28 10^3/uL (1.8-7.7); Neutrophils % 53.5 %; Nucleated Red Blood Cells % 0 %; Platelet Count 214 10^3/cmm (157-399); Red Blood Count 4.46 10^6/uL (3.85-5.65); Red Cell Distribution Width 13.2 % (12.1-15.1); White Blood Count 9.87 10^3/uL (3.29-11.43)
[2024-10-21 05:17] LABS: Blood Urea Nitrogen 11 mg/dL (8-23); Calcium 9.2 mg/dL (8.5-10.5); Carbon Dioxide 27 mmol/L (22-29); Chloride 99 mmol/L (98-107); Creatinine Clr Calc Pharmacy 51.0193; Glucose 116 mg/dL (65-115); Osmolality Calculated 286 mOsm/kg (285-295); Sodium 138 mmol/L (136-145)
[2024-10-21] MEDS: folic acid 1 mg Tablet PO (07:51)
[2024-10-21] MEDS: multivitamin therapeutic Tablet 1 TAB PO (07:51)
[2024-10-21] MEDS: OLANZapine 5 mg TABLET PO ×2 (07:52→16:56)
[2024-10-21] MEDS: thiamine 100 mg Tablet PO (07:52)
[2024-10-21] MEDS: metoprolol tartrate 50 mg Tablet PO (07:52)
[2024-10-21] MEDS: nicotine 21 mg Patch 1 PATCH TRANSDERMA (07:59)
[2024-10-21] MEDS: LORazepam 2 mg/mL INJ 1 mL 1 MG IVP ×2 (09:48→14:00)
--- NOTE | 2024-10-21 12:46 | P.PN_ITS ---
Subjective 2 Subjective: No acute overnight events noted. He is not agitated but demanding and confused at times. Has been off sedation since last 2 days. Medications: Reviewed: Yes Vitals/I&O/Wt Last Vital Signs Temp 97.3 F L 10/20/24 20:00 Pulse 95 10/21/24 09:30 Resp 18 10/21/24 09:30 BP 145/110 10/21/24 08:30 Pulse Ox 93 10/21/24 07:30 O2 Del Method Room Air 10/20/24 05:00 10/20/24 10/21/24 10/21/24 22:59 06:59 14:59 Intake Total 790 / 840 170 / 1010 0.208 / 0.208 Output Total 500 / 500 400 / 900 Balance 290 / 340 -230 / 110 0.208 / 0.208 Weight last 48 hrs Weight 103 kg Physical Exam 2 Narrative: General: Alert and awake, oriented to self Head: Normocephalic. Atraumatic. EOM intact. Neck: No JVD. Cardiovascular: RRR. No gallops. No murmurs. Markedly tachycardic. Soft blood pressure. Lungs: Bilateral coarse crackles present Skin: No jaundice. No rashes. Abdomen: Normal bowel sounds, abdomen soft and nontender. Genito Urinary: Genital exam not performed since complaints not related. Rectal: Rectal exam not performed since no symptoms indicated blood loss. Extremities: No cyanosis or clubbing. Abrasions and bruises present on lower extremities Musculoskeletal: No swollen or erythematous joints. Neurological: Moves all 4 extremities. No myoclonus. Data 10/21/24 04:30 10/21/24 04:30 A&P Assessment and plan (1) Tachyarrhythmia: Patient developed tachyarrhythmia in ED Telemetry with narrow complex somewhat irregular at times tachycardia Repeat EKGs appear to be sinus tachycardia rather than A-fib Will stop Cardizem drip Continuous telemetry monitoring, obtain EKGs as needed to confirm rhythm Received IV fluids Treat underlying withdrawal May consider beta-ton if hemodynamic support (2) Suicidal ideations: Suicidal ideation in the setting of alcohol intoxication Will need psychiatric evaluation after clinically improved Suicide precautions (3) Alcoholic intoxication: Patient currently intoxicated, high risk for proceeding with acute withdrawal [facility] protocol Thiamine, folic acid (4) Elevated CPK: Monitor renal function (5) Renal insufficiency: Baseline renal function unclear given labile labs May have component of CKD vs SHIRA on CKD Received IVF boluses in ED Strict I&Os Daily weights Renally dose medications Repeat labs in AM (6) Transaminitis: Related to EOTH consumption Continue to monitor (7) Metabolic acidosis: Suspected related to alcoholic ketoacidosis Recieved fluids Trend labs (8) Heavy cigarette smoker: Would benefit from cessation (9) Bipolar 1 disorder, depressed, mild: Continue home medications after list is updated Plan 10/16/24 EKG and monitor showing normal sinus tachycardia. Has been off Cardizem drip. 2D echo done showed CONCLUSIONS LV systolic function is normal with EF of 55-60% Mild mitral regurgitation Mild tricuspid regurgitation No comparison studies are available. Will need psychiatry evaluation once more awake and alert. Continue to monitor in ICU for alcohol withdrawal Creatinine improving to 1.7 today. Will start on IV fluids normal saline at 60 cc per hour Will keep n.p.o. for now 10/17/24 Psychiatry consulted, to see patient later today. Probably in addition to alcohol intoxication, also has psychosis component. Will continue to monitor in ICU for alcohol withdrawal Creatinine improving to 1.4 today, AST/ALT stable. Case discussed with case management, as per the guardian patient needs to be placed in a care home for long-term care. 10/18/24 Started on po haldol for agitation as per psychiatry. patient was still agitated yesterday during psych eval and needs reeval for further management. Tx to [facility] for further care. I do not think he is in withdrawal anymore. But would need a sitter. Has sundowning, likely due to dementia component in addition to psychosis. Awaiting for discharge planning. 10/19/24 Patient is still sundowning and agitated, requiring Precedex drip. Hence still continued to stay in ICU. Will start Zyprexa 5 mg at bedtime P.o. Seroquel 25 mg daily P.o. Ativan 1 mg 3 times daily as needed Continue p.o. Haldol twice daily Also chest x-ray reviewed, consistent with mild fluid overload. Will do IV Lasix 40 mg x 1 dose now and monitor for crackles and cough. If stays off Precedex drip will transfer him to [facility] for discharge planning Follow-up social work on Sunday for discharge planning 10/20/24 He still has agitation occasionally. Will do Zyprexa 5 mg twice daily, continue Haldol 2 mg twice daily. Follow-up psychiatry for further recommendations. WBC count trending up to 11.7, creatinine 1.4 Will add IV Zosyn 3.375 mg every 8 hours for possible aspiration pneumonia 2D echo normal Needs speech and swallow eval. Continue to monitor Follow-up case management for discharge planning 10/21/24 He is hemodynamically stable, not requiring IV sedation. Will transfer to [facility] while awaiting for discharge planning. Home medications Wellbutrin 200 mg p.o. in the morning and Klonopin 1 mg p.o. in the evening added. Continue current management. WBC 9.8 today, will deescalate abtibiotics to iv levaquin 750mg daily. creat stable 1.5 DVT ppx: Lovenox Code status: Assume Full Code Attestations 2 Medical Necessity Statement*: Awaiting discharge planning Time Spent in Patient Care: 15 minutes Coding Level of Care Code Acute Code for [facility] Diagnoses Tachyarrhythmia R00.0 Suicidal ideations R45.851 Alcoholic intoxication F10.929 Elevated CPK R74.8 Renal insufficiency N28.9 Transaminitis R74.01 Metabolic acidosis E87.20 Heavy cigarette smoker F17.210 Bipolar 1 disorder, depressed, mild F31.31 Time Spent (min) 15
--- NOTE | 2024-10-21 15:39 | PC.NURSE ---
Pt was [facility] via bed with all belongings. Money was taken in secure package and placed in pyxis. Other belongings include glasses, clothing, wallet, and cell phone.
--- NOTE | 2024-10-21 16:06 | W.PM.NPUPNS ---
Subjective NPU Subjective: 74-year-old male with a history of alcohol dependence, PTSD, and major depressive disorder admitted to the ICU with severe alcohol with withdrawal and hallucinations along with delusions. The patient was moved to the medical floor from the ICU unit. He continued to deny that he had a guardian despite there being evidence that a recent court appointed guardian was present. The patient stated that he simply wished to return home. He had repeatedly requested that he be able to contact his ex- who was in a skilled nursing although the patient's ex- had refused to take his calls and did not wish to speak with him per staff. Patient had stated that he did not need any treatment for substance abuse issues including alcohol abuse despite its adverse consequences. Patient was informed that his guardian was seeking placement in a skilled nursing. The patient had at times appeared belligerent and somewhat defiant. He continued to receive Zyprexa for agitation. He had endorsed problems with PTSD and requested being placed back on Seroquel. He appeared to continue to perseverate about his money being in a locker and was informed that he could not have that checked again by staff that no one was attempting to steal his money. Mental Status Exam MSE Comments: Disheveled male with poor hygiene who appeared in less significant distress today. His speech was slurred but more productive though difficult to understand. There is no evidence of any abnormal involuntary motor movements, tics,or tremors but considerable psychomotor agitation. His mood was reported as allright. His affect appeared irritable and mood incongruent. He did not appear to be responding to internal stimuli. There was no evidence of delusional thinking and no paranoia. He denied any homicidal or suicidal ideation. His insight was poor. His judgment was impaired. His impulse control was impaired. His attention span appeared impaired. He was alert and oriented to person and place. His recent and remote memory were impaired. 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 white male having alcohol related hallucinosis, and hx of alcohol withdrawal symptoms with past history of PTSD, MDD currently on involuntary hold. 1.Continue medical treatment, 2.Continue Zyprexa 5mg bid for agitation. Discuss with guardian about legal placement, he may benefit from inpatient alcohol rehabilitation program. She/he requesting skilled nursing placement. 3.Recommend hold on psychiatric medications otherwise. 4.Patient resistant to treatment for depression/anxiety/substance abuse. 5.Continue involuntary hold for now but appears to be improving. He will likely not require inpatient psychiatric treatment once stabilized medically. 6.Will follow. Attestations NPU Medical Necessity Statement*: continue medical treatment at this time. 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
[2024-10-21] MEDS: tamsulosin 0.4 mg Capsule PO (16:56)
[2024-10-21] MEDS: CLONazepam 0.5 mg Tablet 1 MG PO (16:56)
[2024-10-21] MEDS: haloperidol inj 5 mg/mL INJ 1 mL 2 MG IM (19:12)
[2024-10-21] MEDS: enoxaparin 40 mg/0.4 mL Syringe SUBCUT (21:01)
[2024-10-21] MEDS: haloperidol inj 5 mg/mL INJ 1 mL 1 MG IM (21:01)
[2024-10-22] VITALS (47 sets, daily range): BP systolic 71–129; BP diastolic 48–108; PULSE 70–124; RESP 16–28; TEMP 36.8–37.2; O2SAT 86–98
[2024-10-22] MEDS: dexmedeTOMIDine 0.9 % NaCL 400 MCG/100 ML PREMIX IV (00:20)
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
[2024-10-22] MEDS: dexmedeTOMIDine 0.9 % NaCL 400 MCG/100 ML PREMIX (00:38)
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
--- NOTE | 2024-10-22 00:44 | PC.NURSE ---
Transfer Received patient from [facility] staff at [phone]. Patient placed on continuous monitoring.
--- NOTE | 2024-10-22 01:06 | PC.NURSE ---
Precedex override Precedex had to be overridden by the assisted living housekeeper, Gabbi. Pyxis would not let us pull. Order had to be changed to reflect the medication brand that was on hand. Two precedex orders exist in patient's MAR, one for a ONCE order that was charted on before catching the mistake. Bag was re-scanned and appropriate order was charted on continuing.
[2024-10-22] MEDS: OLANZapine 10 mg VIAL 5 MG IM (06:24)
[2024-10-22] MEDS: haloperidol inj 5 mg/mL INJ 1 mL 1 MG IM (07:23)
[2024-10-22] MEDS: buPROPion SR (12 HR) 100 mg Tablet 200 MG PO (08:41)
[2024-10-22] MEDS: metoprolol tartrate 50 mg Tablet PO ×2 (08:41→20:07)
[2024-10-22] MEDS: OLANZapine 5 mg TABLET PO ×2 (08:42→17:41)
[2024-10-22] MEDS: multivitamin therapeutic Tablet 1 TAB PO (08:42)
[2024-10-22] MEDS: folic acid 1 mg Tablet PO (08:42)
[2024-10-22] MEDS: thiamine 100 mg Tablet PO (08:42)
[2024-10-22] MEDS: ipratropium-albuterol 3 mL Neb INHALATION ×2 (13:01→20:59)
--- NOTE | 2024-10-22 13:33 | PM.PN ---
Subjective Subjective: No acute overnight events noted. Yesterday evening was found to be agitated hence was transferred to ICU for Precedex drip but given low blood pressure could not tolerate hence patient has been off Precedex drip. Medications: Reviewed: Yes Vitals/I&O/Wt Last Vital Signs Temp 99 F 10/22/24 00:00 Pulse 80 10/22/24 13:06 Resp 18 10/22/24 13:04 BP 82/57 10/22/24 08:30 Pulse Ox 96 10/22/24 13:04 O2 Del Method Room Air 10/22/24 13:04 10/21/24 10/22/24 10/22/24 22:59 06:59 14:59 Intake Total 50 / 50.208 11.189 / 61.397 Output Total 450 / 450 Balance 50 / 50.208 -438.811 / -388.603 Weight last 48 hrs Weight 103 kg Physical Exam Narrative: General: Alert and awake, oriented to self Head: Normocephalic. Atraumatic. EOM intact. Neck: No JVD. Cardiovascular: RRR. No gallops. No murmurs. . Soft blood pressure. Lungs: Bilateral coarse crackles present Skin: No jaundice. No rashes. Abdomen: Normal bowel sounds, abdomen soft and nontender. Genito Urinary: Genital exam not performed since complaints not related. Rectal: Rectal exam not performed since no symptoms indicated blood loss. Extremities: No cyanosis or clubbing. Abrasions and bruises present on lower extremities Musculoskeletal: No swollen or erythematous joints. Neurological: Moves all 4 extremities. No myoclonus. Data 10/21/24 04:30 10/21/24 04:30 A&P Assessment and plan (1) Tachyarrhythmia: Patient developed tachyarrhythmia in ED Telemetry with narrow complex somewhat irregular at times tachycardia Repeat EKGs appear to be sinus tachycardia rather than A-fib Will stop Cardizem drip Continuous telemetry monitoring, obtain EKGs as needed to confirm rhythm Received IV fluids Treat underlying withdrawal May consider beta-ton if hemodynamic support (2) Suicidal ideations: Suicidal ideation in the setting of alcohol intoxication Will need psychiatric evaluation after clinically improved Suicide precautions (3) Alcoholic intoxication: Patient currently intoxicated, high risk for proceeding with acute withdrawal [facility] protocol Thiamine, folic acid (4) Elevated CPK: Monitor renal function (5) Renal insufficiency: Baseline renal function unclear given labile labs May have component of CKD vs SHIRA on CKD Received IVF boluses in ED Strict I&Os Daily weights Renally dose medications Repeat labs in AM (6) Transaminitis: Related to EOTH consumption Continue to monitor (7) Metabolic acidosis: Suspected related to alcoholic ketoacidosis Recieved fluids Trend labs (8) Heavy cigarette smoker: Would benefit from cessation (9) Bipolar 1 disorder, depressed, mild: Continue home medications after list is updated Plan 10/16/24 EKG and monitor showing normal sinus tachycardia. Has been off Cardizem drip. 2D echo done showed CONCLUSIONS LV systolic function is normal with EF of 55-60% Mild mitral regurgitation Mild tricuspid regurgitation No comparison studies are available. Will need psychiatry evaluation once more awake and alert. Continue to monitor in ICU for alcohol withdrawal Creatinine improving to 1.7 today. Will start on IV fluids normal saline at 60 cc per hour Will keep n.p.o. for now 10/17/24 Psychiatry consulted, to see patient later today. Probably in addition to alcohol intoxication, also has psychosis component. Will continue to monitor in ICU for alcohol withdrawal Creatinine improving to 1.4 today, AST/ALT stable. Case discussed with case management, as per the guardian patient needs to be placed in a long term for long-term care. 10/18/24 Started on po haldol for agitation as per psychiatry. patient was still agitated yesterday during psych eval and needs reeval for further management. Tx to [facility] for further care. I do not think he is in withdrawal anymore. But would need a sitter. Has sundowning, likely due to dementia component in addition to psychosis. Awaiting for discharge planning. 10/19/24 Patient is still sundowning and agitated, requiring Precedex drip. Hence still continued to stay in ICU. Will start Zyprexa 5 mg at bedtime P.o. Seroquel 25 mg daily P.o. Ativan 1 mg 3 times daily as needed Continue p.o. Haldol twice daily Also chest x-ray reviewed, consistent with mild fluid overload. Will do IV Lasix 40 mg x 1 dose now and monitor for crackles and cough. If stays off Precedex drip will transfer him to [facility] for discharge planning Follow-up social work on Sunday for discharge planning 10/20/24 He still has agitation occasionally. Will do Zyprexa 5 mg twice daily, continue Haldol 2 mg twice daily. Follow-up psychiatry for further recommendations. WBC count trending up to 11.7, creatinine 1.4 Will add IV Zosyn 3.375 mg every 8 hours for possible aspiration pneumonia 2D echo normal Needs speech and swallow eval. Continue to monitor Follow-up case management for discharge planning 10/21/24 He is hemodynamically stable, not requiring IV sedation. Will transfer to [facility] while awaiting for discharge planning. Home medications Wellbutrin 200 mg p.o. in the morning and Klonopin 1 mg p.o. in the evening added. Continue current management. WBC 9.8 today, will deescalate abtibiotics to iv levaquin 750mg daily. creat stable 1.5 10/22/24 Still waiting on discharge planning. Meanwhile patient has been getting agitated/sundowning. Transferred to ICU for Precedex drip but could not tolerate because of soft blood pressure. Home medications adjusted. Started home dose Wellbutrin, Klonopin, trazodone. Continue Zyprexa. Follow-up psychiatry for further adjustment of medications. Antibiotics switched from IV to p.o. for now. Will repeat chest x-ray in a.m. DVT ppx: Lovenox Code status: Assume Full Code Attestations Medical Necessity Statement*: Awaiting discharge planning Time Spent in Patient Care: 20 minutes Coding Level of Care Code Acute Code for [facility] Diagnoses Tachyarrhythmia R00.0 Suicidal ideations R45.851 Alcoholic intoxication F10.929 Elevated CPK R74.8 Renal insufficiency N28.9 Transaminitis R74.01 Metabolic acidosis E87.20 Heavy cigarette smoker F17.210 Bipolar 1 disorder, depressed, mild F31.31 Time Spent (min) 20
--- NOTE | 2024-10-22 13:37 | PC.NURSE ---
Patients belongings were located and money in envelope, wallet, glasses, phone, cards, change and cigarettes are in pyxis. Clothing was placed in patients room.
[2024-10-22 17:06] LABS: Amphetamines Screen Urine Negative (Negative); Barbiturates Screen Urine Positive (Negative); Benzodiazepines Screen Urine Positive (Negative); Cocaine Screen Urine Negative (Negative); Opiate Screen Urine Negative (Negative); PCP Screen Urine Negative (Negative); THC Screen Urine Negative (Negative)
[2024-10-22 17:29] LABS: SARS Covid-2 Antigen Negative (Negative)
[2024-10-22] MEDS: tamsulosin 0.4 mg Capsule PO (17:41)
[2024-10-22] MEDS: CLONazepam 0.5 mg Tablet 1 MG PO (17:41)
--- NOTE | 2024-10-22 18:23 | P.NPUPN_ITS ---
Subjective NPU 2 Subjective: 74-year-old male with a history of alcoh ol dependence, PTSD, and major depressive disorder admitted to the ICU with severe alcohol with withdrawal and hallucinations along with delusions. The patient was transferred back to ICU due to increased agitation. Precedex was removed due to hypotension. Patient had continued to ramble about not needing to be here at this time. He had continued to deny having a current guardian. The patient was informed that the guardian would be likely seeking inpatient treatment particularly for substance abuse. The patient had limited motivation to remain sober at this time. This was despite adverse consequences associated with his continued alcohol use. Mental Status Exam 2 MSE Comments: Disheveled grumbly male with poor hygiene who appeared in less significant distress today. His speech was slurred but more productive though difficult to understand. There is no evidence of any abnormal involuntary motor movements, tics,or tremors but considerable psychomotor agitation. His mood was reported as allright. His affect appeared irritable and mood incongruent. He did not appear to be responding to internal stimuli. There was no evidence of delusional thinking and no paranoia. He denied any homicidal or suicidal ideation. His insight was poor. His judgment was impaired. His impulse control was impaired. His attention span appeared impaired. He was alert and oriented to person and place. His recent and remote memory were impaired. Vitals/I&O/Wt Last Vital Signs Temp 99 F 10/22/24 00:00 Pulse 80 10/22/24 13:06 Resp 18 10/22/24 13:04 BP 98/64 10/22/24 16:30 Pulse Ox 94 10/22/24 16:30 O2 Del Method Room Air 10/22/24 13:04 10/22/24 10/22/24 10/22/24 06:59 14:59 22:59 Intake Total 11.189 / 61.397 Output Total 450 / 450 Balance -438.811 / -388.603 Weight last 48 hrs Weight 103 kg Data NPU 10/21/24 04:30 10/21/24 04:30 A&P Assessment and plan (1) Bipolar 1 disorder, depressed, mild: (2) Alcohol use disorder, severe, dependence: (3) Tachyarrhythmia: (4) Suicidal ideations: (5) Alcoholic intoxication: (6) Elevated CPK: (7) Renal insufficiency: (8) Transaminitis: (9) Metabolic acidosis: (10) Heavy cigarette smoker: (11) Chronic post-traumatic stress disorder: (12) 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 Discuss with guardian about legal placement, he may benefit from inpatient alcohol rehabilitation program. She/he requesting senior living placement. 3.Recommend hold on psychiatric medications otherwise. 4.Patient resistant to treatment for depression/anxiety/substance abuse. 5.Under guardianship, patient no longer on hold as guardianship allows patient to remain here irrespective of his involuntary status. Treatment at alcohol inpatient rehabilitation unit is recommended. 6.Will follow. Attestations NPU 2 Medical Necessity Statement*: continue medical treatment at this time. 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
[2024-10-22] MEDS: trazodone 100 mg Tablet 150 MG PO (20:06)
[2024-10-22] MEDS: OLANZapine 5 mg TABLET 7.5 MG PO (20:06)
[2024-10-22] MEDS: enoxaparin 40 mg/0.4 mL Syringe SUBCUT (20:07)
--- NOTE | 2024-10-22 21:08 | PC.NURSE ---
Patient refuses to keep monitor leads on - left off at this time due to increasing agitation with placement attempts. Will allow spot check of vitals signs only at this time.
[2024-10-23] VITALS (9 sets, daily range): BP systolic 101–122; BP diastolic 61–73; PULSE 73–96; RESP 10–20; TEMP 36.8–36.9; O2SAT 93–96
--- NOTE | 2024-10-23 06:00 | XRR_ITS ---
PROCEDURE INFORMATION: Exam: XR Chest Exam date and time: 10/23/2024 5:45 AM Age: 74 years old Clinical indication: Condition or disease; Other: Follow up; Additional info: Follow up of aspiration pneumonia TECHNIQUE: Imaging protocol: Radiologic exam of the chest. Views: 1 view. COMPARISON: CR (CHEST, ) 10/19/2024 5:55 AM FINDINGS: Lungs: Mild interstitial prominence. Pleural spaces: Unremarkable. No pleural effusion. No pneumothorax. Heart/Mediastinum: See Vasculature finding. Vasculature: Mild cardiomegaly and uncoiling of the thoracic aorta accentuated by the AP positioning. Bones/joints: Mild degenerative changes of the shoulders. XR/XR chest 1V portable [id number] IMPRESSION: No significant interval change.
[2024-10-23] MEDS: ipratropium-albuterol 3 mL Neb INHALATION ×2 (07:23→13:14)
[2024-10-23] MEDS: nicotine 21 mg Patch 1 PATCH TRANSDERMA (08:01)
[2024-10-23] MEDS: multivitamin therapeutic Tablet 1 TAB PO (08:03)
[2024-10-23] MEDS: thiamine 100 mg Tablet PO (08:03)
[2024-10-23] MEDS: folic acid 1 mg Tablet PO (08:03)
[2024-10-23] MEDS: buPROPion XL (24 HR) 150 mg Tablet PO (08:03)
[2024-10-23] MEDS: OLANZapine 5 mg TABLET PO (08:04)
[2024-10-23] MEDS: metoprolol tartrate 50 mg Tablet PO (08:04)
[2024-10-23 10:12] LABS: Anion Gap 14.4 (5-19); Blood Urea Nitrogen 16 mg/dL (8-23); Calcium 9.4 mg/dL (8.5-10.5); Carbon Dioxide 27 mmol/L (22-29); Chloride 98 mmol/L (98-107); Creatine Phosphokinase 170 U/L (39-308); Creatinine Clr Calc Pharmacy 44.6986; Glucose 129 mg/dL (65-115); Osmolality Calculated 285 mOsm/kg (285-295); Potassium 3.4 mmol/L (3.5-5.1); Sodium 136 mmol/L (136-145)
--- NOTE | 2024-10-23 11:15 | P.PN_ITS ---
Subjective 2 Subjective: Seen him at bedside this morning. No acute overnight events noted. As per the bedside nurse he has been quite, less agitated. He also ate his breakfast well. Medications: Reviewed: Yes Vitals/I&O/Wt Last Vital Signs Temp 98.2 F 10/23/24 08:07 Pulse 96 10/23/24 08:07 Resp 10 L 10/23/24 08:07 BP 101/61 10/23/24 08:07 Pulse Ox 93 10/23/24 08:07 O2 Del Method Room Air 10/23/24 07:24 10/22/24 10/23/24 10/23/24 22:59 06:59 14:59 Intake Total 610 / 610 300 / 910 240 / 240 Output Total 400 / 400 Balance 610 / 610 -100 / 510 240 / 240 Weight last 48 hrs Weight 101.546 kg Weight 103 kg Physical Exam 2 Narrative: General: Alert and awake, oriented to self Head: Normocephalic. Atraumatic. EOM intact. Neck: No JVD. Cardiovascular: RRR. No gallops. No murmurs. . Soft blood pressure. Lungs: Bilateral coarse crackles present Skin: No jaundice. No rashes. Abdomen: Normal bowel sounds, abdomen soft and nontender. Genito Urinary: Genital exam not performed since complaints not related. Rectal: Rectal exam not performed since no symptoms indicated blood loss. Extremities: No cyanosis or clubbing. Abrasions and bruises present on lower extremities Musculoskeletal: No swollen or erythematous joints. Neurological: Moves all 4 extremities. No myoclonus. Data 10/21/24 04:30 10/23/24 09:32 A&P Assessment and plan (1) Tachyarrhythmia: Patient developed tachyarrhythmia in ED Telemetry with narrow complex somewhat irregular at times tachycardia Repeat EKGs appear to be sinus tachycardia rather than A-fib Will stop Cardizem drip Continuous telemetry monitoring, obtain EKGs as needed to confirm rhythm Received IV fluids Treat underlying withdrawal May consider beta-ton if hemodynamic support (2) Suicidal ideations: Suicidal ideation in the setting of alcohol intoxication Will need psychiatric evaluation after clinically improved Suicide precautions (3) Alcoholic intoxication: Patient currently intoxicated, high risk for proceeding with acute withdrawal [facility] protocol Thiamine, folic acid (4) Elevated CPK: Monitor renal function (5) Renal insufficiency: Baseline renal function unclear given labile labs May have component of CKD vs SHIRA on CKD Received IVF boluses in ED Strict I&Os Daily weights Renally dose medications Repeat labs in AM (6) Transaminitis: Related to EOTH consumption Continue to monitor (7) Metabolic acidosis: Suspected related to alcoholic ketoacidosis Recieved fluids Trend labs (8) Heavy cigarette smoker: Would benefit from cessation (9) Bipolar 1 disorder, depressed, mild: Continue home medications after list is updated Plan 10/16/24 EKG and monitor showing normal sinus tachycardia. Has been off Cardizem drip. 2D echo done showed CONCLUSIONS LV systolic function is normal with EF of 55-60% Mild mitral regurgitation Mild tricuspid regurgitation No comparison studies are available. Will need psychiatry evaluation once more awake and alert. Continue to monitor in ICU for alcohol withdrawal Creatinine improving to 1.7 today. Will start on IV fluids normal saline at 60 cc per hour Will keep n.p.o. for now 10/17/24 Psychiatry consulted, to see patient later today. Probably in addition to alcohol intoxication, also has psychosis component. Will continue to monitor in ICU for alcohol withdrawal Creatinine improving to 1.4 today, AST/ALT stable. Case discussed with case management, as per the guardian patient needs to be placed in a penitentiary for long-term care. 10/18/24 Started on po haldol for agitation as per psychiatry. patient was still agitated yesterday during psych eval and needs reeval for further management. Tx to [facility] for further care. I do not think he is in withdrawal anymore. But would need a sitter. Has sundowning, likely due to dementia component in addition to psychosis. Awaiting for discharge planning. 10/19/24 Patient is still sundowning and agitated, requiring Precedex drip. Hence still continued to stay in ICU. Will start Zyprexa 5 mg at bedtime P.o. Seroquel 25 mg daily P.o. Ativan 1 mg 3 times daily as needed Continue p.o. Haldol twice daily Also chest x-ray reviewed, consistent with mild fluid overload. Will do IV Lasix 40 mg x 1 dose now and monitor for crackles and cough. If stays off Precedex drip will transfer him to [facility] for discharge planning Follow-up social work on Sunday for discharge planning 10/20/24 He still has agitation occasionally. Will do Zyprexa 5 mg twice daily, continue Haldol 2 mg twice daily. Follow-up psychiatry for further recommendations. WBC count trending up to 11.7, creatinine 1.4 Will add IV Zosyn 3.375 mg every 8 hours for possible aspiration pneumonia 2D echo normal Needs speech and swallow eval. Continue to monitor Follow-up case management for discharge planning 10/21/24 He is hemodynamically stable, not requiring IV sedation. Will transfer to [facility] while awaiting for discharge planning. Home medications Wellbutrin 200 mg p.o. in the morning and Klonopin 1 mg p.o. in the evening added. Continue current management. WBC 9.8 today, will deescalate abtibiotics to iv levaquin 750mg daily. creat stable 1.5 10/22/24 Still waiting on discharge planning. Meanwhile patient has been getting agitated/sundowning. Transferred to ICU for Precedex drip but could not tolerate because of soft blood pressure. Home medications adjusted. Started home dose Wellbutrin, Klonopin, trazodone. Continue Zyprexa. Follow-up psychiatry for further adjustment of medications. Antibiotics switched from IV to p.o. for now. Will repeat chest x-ray in a.m. 10/23/24 Patient's agitation improved with current medications. As per psychiatry he is on bupropion 150 mg daily, Zyprexa 5 mg daily, Zyprexa 7.5 mg at bedtime, Klonopin 1 mg daily and trazodone 150 mg bedtime. Awaiting case management for discharge planning probably to [facility]. Otherwise he is hemodynamically stable. Will continue p.o. levofloxacin for 1 more day. DVT ppx: Lovenox Code status: Assume Full Code Attestations 2 Medical Necessity Statement*: Awaiting discharge planning Time Spent in Patient Care: 20 minutes Coding Level of Care Code Acute Code for [facility] Diagnoses Tachyarrhythmia R00.0 Suicidal ideations R45.851 Alcoholic intoxication F10.929 Elevated CPK R74.8 Renal insufficiency N28.9 Transaminitis R74.01 Metabolic acidosis E87.20 Heavy cigarette smoker F17.210 Bipolar 1 disorder, depressed, mild F31.31 Time Spent (min) 20
--- NOTE | 2024-10-23 13:49 | W.PM.NPUPNS ---
Subjective NPU Subjective: 74-year-old male with a history of alcohol dependence, PTSD, and major depressive disorder admitted to the ICU with severe alcohol with withdrawal and hallucinations along with delusions. The patient continued to appear in denial in regards to his likely transfer to a substance abuse treatment facility. Patient has a current legal guardian the patient appeared perplexed by this information. Patient had stated that he would not go to a facility. He had continued to appear somewhat oppositional towards treatment and required continued medications to help with agitation. He had appeared at times confused as he had difficulties answering questions regarding his whereabouts. He had stated that he had a that was waiting for him at home though this was found to be untrue. Mental Status Exam MSE Comments: Disheveled grumbly male with poor hygiene who appeared in less significant distress today. His speech was slurred but more productive though difficult to understand. There is no evidence of any abnormal involuntary motor movements, tics,or tremors but considerable psychomotor agitation. His mood was reported as okay. His affect appeared irritable and mood incongruent. He did not appear to be responding to internal stimuli. There was no evidence of delusional thinking and no paranoia. He denied any homicidal or suicidal ideation. His insight was poor. His judgment was impaired. His impulse control was impaired. His attention span appeared impaired. He was alert and oriented to person and place but not time. His recent and remote memory were impaired. Vitals/I&O/Wt Last Vital Signs Temp 98.2 F 10/23/24 08:07 Pulse 79 10/23/24 13:15 Resp 16 10/23/24 13:10 BP 101/61 10/23/24 08:07 Pulse Ox 93 10/23/24 13:10 O2 Del Method Room Air 10/23/24 13:10 10/22/24 10/23/24 10/23/24 22:59 06:59 14:59 Intake Total 610 / 610 300 / 910 720 / 720 Output Total 400 / 400 Balance 610 / 610 -100 / 510 720 / 720 Weight last 48 hrs Weight 101.546 kg Weight 103 kg Data NPU 10/21/24 04:30 10/23/24 09:32 A&P Assessment and plan (1) Bipolar 1 disorder, depressed, mild: (2) Alcohol use disorder, severe, dependence: (3) Tachyarrhythmia: (4) Suicidal ideations: (5) Alcoholic intoxication: (6) Elevated CPK: (7) Renal insufficiency: (8) Transaminitis: (9) Metabolic acidosis: (10) Heavy cigarette smoker: (11) Chronic post-traumatic stress disorder: (12) 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 Discuss with guardian about legal placement, he may benefit from inpatient alcohol rehabilitation program. She/he requesting skilled nursing placement. 3.Recommend hold on psychiatric medications otherwise. 4.Patient resistant to treatment for depression/anxiety/substance abuse. 5. Treatment at alcohol inpatient rehabilitation unit is recommended, he will require placement in skilled nursing. I would recommend KENNETH testing through OT as patient appears unable to live independently. 6.Will follow. Attestations NPU Medical Necessity Statement*: continue medical treatment at this time. 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
--- NOTE | 2024-10-23 15:10 | PC.NURSE ---
Accepted at [facility] Patient accepted at [facility] facility in [place], [place]. Phone number to call report [phone].
--- NOTE | 2024-10-23 15:45 | PC.NURSE ---
Report Called report to Frank at [facility], number used to call report [phone]. Patient room assignment 72-B. Accepting physician Dr. Ruelas. This nurse obtained telephone consent from patient guardian Richard Lobato to send patient to [facility].
--- NOTE | 2024-10-23 15:47 | PM.TDS ---
Transfer Summary Providers Date of Admission: 10/15/24 21:10 Date of Discharge/Transfer: 10/23/24 Attending Provider at Admission: Richard Duong MD Attending Provider at Transfer: Peyton Saldaña MD Consults: Psychiatry Primary Care Provider: Marlena Nolan MD Transfer Plans: Anticipated date of transfer: 10/23/24. Receiving Provider: Dr Ruelas. 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 Upon presentation, patient noted to be intoxicated with alcohol. He expressed suicidal ideations with plans to shoot himself or walk into traffic. Patient was intoxicated while making these statements. 96 hour hold placed by ED provider. ED course complicated by tachycardia. Rhythm appeared to be atrial fibrillation per ED provider. Patient was started on Cardizem drip in ED. He denies palpitations, shortness of breath, chest pain, fevers or chills. Denies alleviating or aggravating factors. Hospital Course Hospital Course He was initially admitted for tachyarrhythmias, suicidal ideation, alcohol intoxication, renal insufficiency. He was started on Cardizem drip but playground monitor showed normal sinus tachycardia hence Cardizem drip discontinued. Patient was being monitored in ICU for alcohol withdrawal. He was found to have transaminitis and CKD. He never had alcohol withdrawal symptoms about 4 was found to be agitated likely due to psychosis. Was started on Precedex drip for 2 days overnight secondary to agitation. Precedex drip discontinued and he was started on home medications Seroquel on p.o. Ativan 1 mg 3 times daily. Meanwhile he was found to be fluid overload/pneumonia likely secondary to aspiration. Has been treated with IV antibiotics Zosyn. Speech and swallow consulted and he was changed to thickened liquid diet. He was transferred to floor for further care but became agitated that evening and started on Precedex drip momentarily but was not able to tolerate due to soft blood pressure. He was moved back to ICU for Precedex drip. Chest x-ray improved, will discharge him on oral antibiotics. He has been on home medications Wellbutrin, Klonopin, trazodone and Zyprexa but still agitated. Psychiatry consulted and he has been followed up by psychiatry. He has been stable with no active agitation on current management present and did not require Precedex for the last 48 hours. He is medically stable to be transferred to inpatient psychiatry facility for further management of psychosis. Physical Exam Narrative: General: Alert and awake, oriented to self, [place], slurred speech, irritable and impaired judgment Head: Normocephalic. Atraumatic. EOM intact. Neck: No JVD. Cardiovascular: RRR. No gallops. No murmurs. . Soft blood pressure. Lungs: Bilateral coarse crackles present Skin: No jaundice. No rashes. Abdomen: Normal bowel sounds, abdomen soft and nontender. Genito Urinary: Genital exam not performed since complaints not related. Rectal: Rectal exam not performed since no symptoms indicated blood loss. Extremities: No cyanosis or clubbing. Abrasions and bruises present on lower extremities Musculoskeletal: No swollen or erythematous joints. Neurological: Moves all 4 extremities. No myoclonus. TS Data Studies Completed and Pending Completed Studies During Hospitalization Category Date Time Status XR chest 1V portable [id number] Routine Exams 10/19/24 06:00 Completed XR chest 1V portable [id number] Routine Exams 10/23/24 06:00 Completed XR chest 1V portable [id number] Stat Exams 10/15/24 13:45 Completed CV. echo complete* [id number] Routine Ultrasound 10/16/24 22:14 Completed Laboratory Last Values WBC 9.87 10^3/uL (3.29-11.43) 10/21/24 04:30 Corrected WBC Cancelled 10/15/24 14:23 RBC 4.46 10^6/uL (3.85-5.65) 10/21/24 04:30 Hgb 14.10 g/dL (11.27-16.99) 10/21/24 04:30 Hct 41.3 % (37-53) 10/21/24 04:30 MCV 92.6 fl (82-101) 10/21/24 04:30 MCH 31.6 pg (27-33) 10/21/24 04:30 MCHC 34.1 g/dL (30-55) 10/21/24 04:30 RDW 13.2 % (12.1-15.1) 10/21/24 04:30 Plt Count 214 10^3/cmm (157-399) D 10/21/24 04:30 MPV 10.2 fL (7.4-10.4) 10/21/24 04:30 Gran % Cancelled 10/15/24 14:23 Neut % (Auto) 53.5 % 10/21/24 04:30 Lymph % (Auto) 22.9 % 10/21/24 04:30 [place] % (Auto) 17.5 % 10/21/24 04:30 Eos % (Auto) 4.7 % 10/21/24 04:30 Baso % (Auto) 0.5 % 10/21/24 04:30 Neut # (Auto) 5.28 10^3/uL (1.8-7.7) 10/21/24 04:30 Lymph # (Auto) 2.3 10^3/uL (0.8-4.8) 10/21/24 04:30 [place] # (Auto) 1.7 10^3/uL (0.2-0.9) H 10/21/24 04:30 Eos # (Auto) 0.5 10^3/uL (0.0-0.8) 10/21/24 04:30 Baso # (Auto) 0.1 10^3/uL (0.0-0.1) 10/21/24 04:30 Absolute Gran (auto) Cancelled 10/15/24 14:23 Nucleated RBC % (auto) 0 % 10/21/24 04:30 Nucleated RBCs # 0.0 /100WBC 10/21/24 04:30 Sodium 136 mmol/L (136-145) 10/23/24 09:32 Potassium 3.4 mmol/L (3.5-5.1) L 10/23/24 09:32 Chloride 98 mmol/L (98-107) 10/23/24 09:32 Carbon Dioxide 27 mmol/L (22-29) 10/23/24 09:32 Anion Gap 14.4 (5-19) 10/23/24 09:32 BUN 16 mg/dL (8-23) 10/23/24 09:32 Creatinine 1.7 mg/dL (0.7-1.2) H 10/23/24 09:32 GFR Calculation Not Reportable 10/23/24 09:32 Glucose 129 mg/dL (65-115) H 10/23/24 09:32 Calculated Osmolality 285 mOsm/kg (285-295) 10/23/24 09:32 Calcium 9.4 mg/dL (8.5-10.5) 10/23/24 09:32 Phosphorus 1.7 mg/dL (2.5-4.5) L 10/16/24 07:45 Magnesium 1.7 mg/dL (1.7-2.3) 10/20/24 03:51 Total Bilirubin 0.6 mg/dL (0.15-1.2) 10/20/24 03:51 AST 42 U/L (0-40) H 10/20/24 03:51 ALT 67 U/L (0-41) H 10/20/24 03:51 Alkaline Phosphatase 152 U/L (40-130) H 10/20/24 03:51 Ammonia 29 umol/L (16-60) 10/18/24 04:56 Creatine Kinase 170 U/L (39-308) 10/23/24 09:32 Total Protein 6.4 g/dL (6.6-8.7) L 10/20/24 03:51 Albumin 3.4 g/dL (3.5-5.2) L 10/20/24 03:51 Globulin 3.0 g/dL (1.3-4.6) 10/20/24 03:51 Lipase 55 U/L (13-60) 10/15/24 15:33 TSH 0.21 uIU/mL (0.27-4.20) L 10/15/24 20:39 Free T4 1.31 ng/dL (0.82-1.77) 10/15/24 20:39 Urine Color Yellow (Yellow) 10/15/24 15:21 Urine Appearance Clear (CLEAR) 10/15/24 15:21 Urine pH 5.5 (5-7) 10/15/24 15:21 Ur Specific [place] 1.015 (1.005-1.030) 10/15/24 15:21 Urine Protein Trace (Negative) A 10/15/24 15:21 Urine Glucose (UA) Negative (Normal) 10/15/24 15:21 Urine Ketones 1+ (Negative) H 10/15/24 15:21 Urine Blood 3+ (Negative) A 10/15/24 15:21 Urine Nitrate Negative (Negative) 10/15/24 15:21 Urine Bilirubin Negative (Negative) 10/15/24 15:21 Urine Urobilinogen 0.2 mg/dL (Negative) 10/15/24 15:21 Ur Leukocyte Esterase Negative (Negative) 10/15/24 15:21 Urine RBC 0-2 /hpf (0-2) 10/15/24 15:21 Urine WBC 0-5 /hpf (0-5) 10/15/24 15:21 Ur Squamous Epith Cells 0-5 /hpf (0-5) 10/15/24 15:21 Amorphous Sediment Not Reportable 10/15/24 15:21 Urine Bacteria None seen /hpf (NONE) 10/15/24 15:21 Hyaline Casts 10.32 /lpf 10/15/24 15:21 Fine Granular Casts 5-10 /lpf H 10/15/24 15:21 Urine Opiates Screen Negative ng/mL (Negative) 10/22/24 16:30 Ur Barbiturates Screen Positive ng/mL (Negative) H 10/22/24 16:30 Ur Phencyclidine Scrn Negative ng/mL (Negative) 10/22/24 16:30 Ur Amphetamines Screen Negative ng/mL (Negative) 10/22/24 16:30 U Benzodiazepines Scrn Positive ng/mL (Negative) H 10/22/24 16:30 Urine Cocaine Screen Negative ng/mL (Negative) 10/22/24 16:30 U Marijuana (THC) Screen Negative ng/mL (Negative) 10/22/24 16:30 Ethyl Alcohol 135 mg/dL (0-10) H 10/15/24 20:39 C. difficile (PCR) Negative (Negative) 10/17/24 13:30 Coronavirus (PCR) Negative (Negative) 10/15/24 14:32 Influenza A (PCR) Negative (Negative) 10/15/24 14:32 Influenza Type B (PCR) Negative (Negative) 10/15/24 14:32 RSV (PCR) Negative (Negative) 10/15/24 14:32 SARS-CoV-2 Ag (Rapid) Negative (Negative) 10/22/24 16:30 Radiology Impressions Chest X-Ray 10/23/24 06:00 IMPRESSION: No significant interval change. Recent Clincial Data Last Vital Signs Temp 98.2 F 10/23/24 08:07 Pulse 79 10/23/24 13:15 Resp 16 10/23/24 13:10 BP 101/61 10/23/24 08:07 Pulse Ox 93 10/23/24 13:10 O2 Del Method Room Air 10/23/24 13:10 Vital Signs Temp Pulse Resp BP Pulse Ox O2 Del Method 10/23/24 13:15 79 10/23/24 13:10 80 16 93 Room Air 10/23/24 08:07 98.2 F 96 10 L 101/61 93 10/23/24 07:25 81 10/23/24 07:24 87 16 93 Room Air 10/23/24 06:29 98.3 F 88 20 H 122/73 94 Room Air Intake & Output/Weight 10/21/24 10/22/24 10/23/24 10/24/24 06:59 06:59 06:59 06:59 Intake Total 1010 / 1010 61.397 / 61.397 910 / 910 720 / 720 Output Total 900 / 900 450 / 450 400 / 400 Balance 110 / 110 -388.603 / -388.603 510 / 510 720 / 720 Weight 103 kg 101.546 kg Vitals Last Vital Signs Temp 98.2 F 10/23/24 08:07 Pulse 79 10/23/24 13:15 Resp 16 10/23/24 13:10 BP 101/61 10/23/24 08:07 Pulse Ox 93 10/23/24 13:10 O2 Del Method Room Air 10/23/24 13:10 TS Medications Medications Acetaminophen (Acetaminophen 325 Mg Tablet) 650 mg PO Q6H PRN PRN Reason: Mild/Mod Pain Or Temp >/= 101 Albuterol/Ipratropium (Ipratropium-Albuterol 3 Ml Neb) 3 ml INHALATION Q6H.RESP [facility] Last Admin: 10/23/24 13:14 Dose: 3 ml Bupropion HCl (Bupropion Xl (24 Hr) 150 Mg Tablet) 150 mg PO DAILY [facility] Last Admin: 10/23/24 08:03 Dose: 150 mg Clonazepam (Clonazepam 0.5 Mg Tablet) 1 mg PO QPM [facility] Last Admin: 10/22/24 17:41 Dose: 1 mg Enoxaparin Sodium (Enoxaparin 40 Mg/0.4 Ml Syringe) 40 mg SUBCUT Q24H [facility] Last Admin: 10/22/24 20:07 Dose: 40 mg Folic Acid (Folic Acid 1 Mg Tablet) 1 mg PO DAILY [facility] Last Admin: 10/23/24 08:03 Dose: 1 mg Haloperidol Lactate (Haloperidol Inj 5 Mg/Ml Inj 1 Ml) 1 mg IM Q4H PRN PRN Reason: AGITATION Last Admin: 10/22/24 07:23 Dose: 1 mg Lanolin (Lanolin Oint 7 Gm) 1 applic TOPICAL PRN PRN PRN Reason: DRYNESS Last Admin: 10/19/24 08:39 Dose: 1 applic Levofloxacin (Levofloxacin 750 Mg Tablet) 750 mg PO Q48H [facility]; Protocol Metoprolol Tartrate (Metoprolol Tartrate 50 Mg Tablet) 50 mg PO BID@0900,2100 [facility] Last Admin: 10/23/24 08:04 Dose: 50 mg Multivitamins Therapeutic (Multivitamin Therapeutic Tablet) 1 tab PO DAILY [facility] Last Admin: 10/23/24 08:03 Dose: 1 tab Nicotine (Nicotine 21 Mg Patch) 1 patch TRANSDERMA DAILY [facility] Last Admin: 10/23/24 08:01 Dose: 1 patch Olanzapine (Olanzapine 5 Mg Tablet) 5 mg PO 0900 [facility] Last Admin: 10/23/24 08:04 Dose: 5 mg Olanzapine (Olanzapine 5 Mg Tablet) 7.5 mg PO BEDTIME [facility] Last Admin: 10/22/24 20:06 Dose: 7.5 mg Ondansetron HCl (Ondansetron 4 Mg Tablet) 4 mg PO Q8H PRN PRN Reason: NAUSEA Tamsulosin HCl (Tamsulosin 0.4 Mg Capsule) 0.4 mg PO QPM [facility] Last Admin: 10/22/24 17:41 Dose: 0.4 mg Thiamine Mononitrate (Thiamine 100 Mg Tablet) 100 mg PO DAILY [facility] Last Admin: 10/23/24 08:03 Dose: 100 mg Trazodone HCl (Trazodone 100 Mg Tablet) 150 mg PO BEDTIME [facility] Last Admin: 10/22/24 20:06 Dose: 150 mg Discontinued Medications Alprazolam (Alprazolam 0.5 Mg Tablet) 0.5 mg PO TID PRN PRN Reason: ANXIETY Last Admin: 10/20/24 20:37 Dose: 0.5 mg Amiodarone HCl (Amiodarone 50 Mg/Ml Sdv 3 Ml) 150 mg IVP ONCE ONE Stop: 10/16/24 01:21 Last Admin: 10/16/24 07:29 Dose: Not Given Amiodarone HCl (Amiodarone 50 Mg/Ml Sdv 3 Ml) 150 mg IVP ONCE ONE Stop: 10/19/24 15:27 Last Admin: 10/19/24 15:47 Dose: 150 mg Amiodarone HCl (Amiodarone 50 Mg/Ml Sdv 3 Ml) Confirm Administered Dose 150 mg .ROUTE .STK-MED ONE Stop: 10/19/24 15:28 Bupropion HCl (Bupropion Sr (12 Hr) 100 Mg Tablet) 200 mg PO QAM [facility] Last Admin: 10/22/24 08:41 Dose: 200 mg Diltiazem HCl (Diltiazem 5 Mg/Ml Sdv 5 Ml) 20 mg IVP ONCE ONE Stop: 10/15/24 20:19 Last Admin: 10/15/24 20:35 Dose: 20 mg Furosemide (Furosemide 10 Mg/Ml Sdv 4ml) 40 mg IVP ONCE ONE Stop: 10/19/24 08:55 Last Admin: 10/19/24 09:08 Dose: 40 mg Haloperidol (Haloperidol 1 Mg Tablet) 2 mg PO ONCE ONE Stop: 10/17/24 18:03 Last Admin: 10/17/24 18:16 Dose: 2 mg Haloperidol (Haloperidol 1 Mg Tablet) 2 mg PO BID [facility] Last Admin: 10/20/24 08:20 Dose: 2 mg Haloperidol Lactate (Haloperidol Inj 5 Mg/Ml Inj 1 Ml) 10 mg IM ONCE ONE Stop: 10/15/24 21:30 Last Admin: 10/15/24 23:59 Dose: Not Given Haloperidol Lactate (Haloperidol Inj 5 Mg/Ml Inj 1 Ml) 2 mg IM NOW ONE Stop: 10/21/24 19:04 Last Admin: 10/21/24 19:12 Dose: 2 mg Sterile Water (Water) Confirm Administered Dose 10 mls @ as directed .ROUTE .STK-MED ONE Stop: 10/15/24 17:29 Last Infusion: 10/16/24 02:03 Dose: Infused Sodium Chloride (Sodium Chloride 0.9%) 1,000 mls @ 999 mls/hr IV .Q1H1M [facility] Stop: 10/15/24 19:45 Last Infusion: 10/15/24 19:26 Dose: Infused Diltiazem HCl 100 mg/ Sodium (Chloride) 100 mls @ 0 mls/hr IV .Q0M [facility]; Protocol Last Titration: 10/16/24 14:02 Dose: Infused Sodium Chloride (Sodium Chloride 0.9%) 1,000 mls @ 75 mls/hr IV .[id number] [facility]AY Last Infusion: 10/18/24 00:07 Dose: Infused Dexmedetomidine HCl 400 mcg/ (Sodium Chloride) 104 mls @ 0 mls/hr IV .Q0M [facility]; Protocol Dexmedetomidine HCl 400 mcg/ (Sodium Chloride) 104 mls @ 0 mls/hr IV .Q0M [facility]; Protocol Dexmedetomidine/Sodium Chloride (Precedex) 400 mcg in 100 mls @ 0 mls/hr IV .Q0M [facility]; Protocol Last Titration: 10/19/24 08:28 Dose: Infused Sterile Water (Water) Confirm Administered Dose 10 mls @ as directed .ROUTE .STK-MED ONE Stop: 10/16/24 22:58 Last Admin: 10/16/24 23:13 Dose: Not Given Amiodarone HCl/Dextrose (Nexterone) 150 mg in 100 mls @ 400 mls/hr IV ONCE ONE Stop: 10/17/24 02:34 Last Infusion: 10/17/24 03:05 Dose: Infused Lidocaine HCl 5 ml/ Potassium (Chloride) 105 mls @ 26.25 mls/hr IV ONCE ONE Stop: 10/17/24 11:59 Last Infusion: 10/17/24 17:16 Dose: Infused Sterile Water (Water) Confirm Administered Dose 10 mls @ as directed .ROUTE .STK-MED ONE Stop: 10/18/24 21:18 Last Infusion: 10/19/24 14:13 Dose: Infused Piperacillin Sod/Tazobactam (Sod 3.375 gm/ Sodium Chloride) 50 mls @ 12.5 mls/hr IV Q8H [facility]; Protocol Last Infusion: 10/21/24 18:09 Dose: Infused Levofloxacin/Dextrose (Levaquin-D5w) 750 mg in 150 mls @ 100 mls/hr IV ONCE ONE; Protocol Stop: 10/21/24 18:30 Dexmedetomidine HCl 400 mcg/ (Sodium Chloride) 104 mls @ 0 mls/hr IV .Q0M [facility]; Protocol Dexmedetomidine/Sodium Chloride (Precedex) Confirm Administered Dose 400 mcg in 100 mls @ as directed .ROUTE .STK-MED ONE Stop: 10/22/24 00:25 Last Infusion: 10/22/24 01:02 Dose: 4.9 mls/hr Dexmedetomidine/Sodium Chloride (Precedex) 400 mcg in 100 mls @ 0 mls/hr IV .Q0M [facility]; Protocol Last Titration: 10/23/24 06:59 Dose: Infused Sterile Water (Water) Confirm Administered Dose 10 mls @ as directed .ROUTE .STK-MED ONE Stop: 10/22/24 06:22 Last Admin: 10/22/24 08:42 Dose: Not Given Levofloxacin (Levofloxacin 750 Mg Tablet) 750 mg PO DAILY@0600 [facility]; Protocol Last Admin: 10/23/24 06:58 Dose: Not Given Loperamide HCl (Loperamide 2 Mg Capsule) 2 mg PO QID PRN PRN Reason: DIARRHEA Last Admin: 10/20/24 14:57 Dose: 2 mg Lorazepam (Lorazepam 2 Mg Tablet) 2 mg PO ONCE ONE Stop: 10/15/24 14:45 Last Admin: 10/15/24 14:51 Dose: 2 mg Lorazepam (Lorazepam 2 Mg Tablet) 2 mg PO ONCE ONE Stop: 10/15/24 19:24 Last Admin: 10/15/24 19:30 Dose: 2 mg Lorazepam (Lorazepam 2 Mg Tablet) 2 mg PO Q4H PRN; Protocol PRN Reason: WITHDRAWAL Lorazepam (Lorazepam 2 Mg/Ml Inj 1 Ml) 2 mg IM Q4H PRN; Protocol PRN Reason: ALCOHOL WITHDRAWAL Lorazepam (Lorazepam 2 Mg/Ml Inj 1 Ml) 2 mg IVP PRN PRN; Protocol PRN Reason: WITHDRAWAL Last Admin: 10/18/24 23:55 Dose: 2 mg Lorazepam (Lorazepam 2 Mg/Ml Inj 1 Ml) 2 mg IVP ONCE ONE Stop: 10/16/24 16:52 Last Admin: 10/16/24 16:59 Dose: 2 mg Lorazepam (Lorazepam 2 Mg/Ml Inj 1 Ml) 1 mg IVP ONCE ONE Stop: 10/20/24 03:46 Last Admin: 10/20/24 03:51 Dose: 1 mg Lorazepam (Lorazepam 2 Mg/Ml Inj 1 Ml) 1 mg IVP TID PRN PRN Reason: ANXIETY Last Admin: 10/21/24 14:00 Dose: 1 mg Metoprolol Tartrate (Metoprolol Tartrate 1 Mg/1 Ml Sdv 5 Ml) 2.5 mg IVP ONCE ONE Stop: 10/16/24 01:25 Last Admin: 10/16/24 01:41 Dose: 2.5 mg Metoprolol Tartrate (Metoprolol Tartrate 1 Mg/1 Ml Sdv 5 Ml) 2.5 mg IVP ONCE ONE Stop: 10/16/24 20:45 Last Admin: 10/16/24 20:59 Dose: 2.5 mg Metoprolol Tartrate (Metoprolol Tartrate 1 Mg/1 Ml Sdv 5 Ml) 5 mg IVP ONCE ONE Stop: 10/19/24 16:21 Last Admin: 10/19/24 16:26 Dose: 5 mg Olanzapine (Olanzapine 10 Mg Vial) 5 mg IM ONCE ONE Stop: 10/16/24 22:50 Last Admin: 10/16/24 22:49 Dose: 5 mg Olanzapine (Olanzapine 10 Mg Vial) Confirm Administered Dose 10 mg .ROUTE .STK-MED ONE Stop: 10/16/24 22:58 Olanzapine (Olanzapine 10 Mg Vial) 5 mg IM ONCE ONE Stop: 10/18/24 21:10 Last Admin: 10/18/24 21:21 Dose: 5 mg Olanzapine (Olanzapine 10 Mg Vial) Confirm Administered Dose 10 mg .ROUTE .STK-MED ONE Stop: 10/18/24 21:18 Last Admin: 10/18/24 22:04 Dose: Not Given Olanzapine (Olanzapine 5 Mg Tablet) 5 mg PO 1700 [facility] Last Admin: 10/19/24 16:03 Dose: 5 mg Olanzapine (Olanzapine 5 Mg Tablet) 5 mg PO ONCE ONE Stop: 10/20/24 00:48 Last Admin: 10/20/24 01:09 Dose: 5 mg Olanzapine (Olanzapine 5 Mg Tablet) 5 mg PO BID [facility] Last Admin: 10/22/24 17:41 Dose: 5 mg Olanzapine (Olanzapine 10 Mg Vial) 5 mg IM ONCE ONE Stop: 10/22/24 06:18 Last Admin: 10/22/24 06:24 Dose: 5 mg Olanzapine (Olanzapine 10 Mg Vial) Confirm Administered Dose 10 mg .ROUTE .STK-MED ONE Stop: 10/22/24 06:22 Last Admin: 10/22/24 08:42 Dose: Not Given Ondansetron HCl (Ondansetron 2 Mg/Ml Sdv 2 Ml) 4 mg IVP Q8H PRN PRN Reason: vomiting, or N/V if npo Pharmacy Consult (Pharmacy Consult For Fall Risk) 1 each XX ONCE ONE; Protocol Stop: 10/19/24 21:44 Phenobarbital Sodium (Phenobarbital 130 Mg/Ml Sdv 1 Ml) 135 mg IVP ONCE ONE Stop: 10/16/24 21:34 Last Admin: 10/16/24 21:43 Dose: 135 mg Potassium Chloride (Potassium Chloride Er 20 Meq Tablet) 40 meq PO Q6H [facility] Stop: 10/18/24 14:16 Last Admin: 10/18/24 17:05 Dose: Not Given Potassium Chloride (Potassium Chloride Er 20 Meq Tablet) 40 meq PO ONCE ONE Stop: 10/18/24 17:05 Last Admin: 10/18/24 17:16 Dose: 40 meq Potassium Chloride (Potassium Chloride Er 20 Meq Tablet) 40 meq PO Q6H [facility] Stop: 10/20/24 14:16 Last Admin: 10/20/24 15:28 Dose: 40 meq Quetiapine Fumarate (Quetiapine 25 Mg Tablet) 25 mg PO DAILY [facility] Last Admin: 10/19/24 09:16 Dose: 25 mg Thiamine HCl (Thiamine 100 Mg/Ml Sdv) 100 mg IM ONCE ONE Stop: 10/15/24 22:09 Last Admin: 10/15/24 23:15 Dose: 100 mg Ziprasidone (Ziprasidone 20 Mg/Ml Sdv) 20 mg IM NOW ONE Stop: 10/15/24 17:27 Last Admin: 10/15/24 17:43 Dose: 20 mg Ziprasidone (Ziprasidone 20 Mg/Ml Sdv) Confirm Administered Dose 20 mg .ROUTE .STK-MED ONE Stop: 10/15/24 17:29 Zolpidem Tartrate (Zolpidem 5 Mg Tablet) 10 mg PO NOW ONE Stop: 10/15/24 19:25 Last Admin: 10/15/24 19:37 Dose: 10 mg Allergies ketorolac Allergy (Unknown, Verified 05/20/24 13:35) Unknown naproxen Allergy (Unknown, Verified 05/20/24 13:35) Unknown vortioxetine [From Brintellix] Allergy (Unknown, Verified 05/20/24 13:35) Unknown Home Medications metoprolol tartrate 50 mg tablet 50 mg PO BID 01/22/23 [History Confirmed 10/15/24] bupropion HCl 200 mg tablet,12 hr sustained-release (Wellbutrin SR) 200 mg PO QAM #30 tabs 05/20/24 [Rx Confirmed 10/15/24] hydroxyzine pamoate 25 mg capsule (Vistaril) 25 mg PO DAILY PRN anxiety #30 caps 06/04/24 [Rx Confirmed 10/15/24] tamsulosin 0.4 mg capsule 0.4 mg PO QPM 07/04/24 [History Confirmed 10/15/24] metoprolol tartrate 25 mg tablet 12.5 mg PO BID 10/14/24 [History Confirmed 10/15/24] pantoprazole 20 mg tablet,delayed release (Protonix) 20 mg PO DAILY 10/14/24 [History Confirmed 10/15/24] quetiapine 100 mg tablet 100 mg PO BEDTIME 10/14/24 [History Confirmed 10/15/24] quetiapine 50 mg tablet 50 mg PO .AFTER LUNCH 10/14/24 [History Confirmed 10/15/24] ramelteon 8 mg tablet 8 mg PO BEDTIME PRN Sleep 10/14/24 [History Confirmed 10/15/24] trazodone 150 mg tablet 150 mg PO QPM 10/14/24 [History Confirmed 10/15/24] clonazepam 1 mg tablet 1 mg PO QPM 10/15/24 [History Confirmed 10/15/24] Discharge Plan Discharge Patient Disposition: Home Condition: Stable Prescriptions: New folic acid 1 mg Tablet 1 mg PO DAILY 30 Days Qty: 30 0RF thiamine mononitrate (vit B1) [Vitamin B-1 (mononitrate)] 100 mg Tablet 100 mg PO DAILY 30 Days Qty: 30 0RF metoprolol tartrate 50 mg Tablet 50 mg PO BID@0900,2100 30 Days Qty: 60 0RF levofloxacin 750 mg Tablet 750 mg PO Q48H 2 Days Qty: 1 0RF olanzapine 5 mg Tablet 5 mg PO 0900 15 Days Qty: 15 0RF multivitamin with folic acid [Thera] 400 mcg Tablet 1 tab PO DAILY 30 Days Qty: 30 0RF bupropion HCl 150 mg Tablet Extended Release 24 Hr 150 mg PO DAILY 30 Days Qty: 30 0RF olanzapine 5 mg Tablet 7.5 mg PO BEDTIME 15 Days Qty: 15 0RF Continued bupropion HCl [Wellbutrin SR] 200 mg tablet sustained-release 12 hr 200 mg PO QAM Qty: 30 6RF metoprolol tartrate 50 mg tablet 50 mg PO BID hydroxyzine pamoate [Vistaril] 25 mg capsule 25 mg PO DAILY PRN (Reason: anxiety) Qty: 30 3RF clonazepam 1 mg tablet 1 mg PO QPM tamsulosin 0.4 mg capsule 0.4 mg PO QPM quetiapine 100 mg tablet 100 mg PO BEDTIME pantoprazole [Protonix] 20 mg Tablet,Delayed Release (Dr/Ec) 20 mg PO DAILY trazodone 150 mg Tablet 150 mg PO QPM metoprolol tartrate 25 mg Tablet 12.5 mg PO BID ramelteon 8 mg Tablet 8 mg PO BEDTIME PRN (Reason: Sleep) quetiapine 50 mg Tablet 50 mg PO .AFTER LUNCH Discharge Orders: Discharge Order (Routine); Ordered 10/23/24 Ordered By: Peyton Saldaña Referrals: Marlena Nolan MD [Primary Care Provider] - Discharge Diet: As Directed Discharge Activity: Increase activity as tolerated Patient Instructions: Opioid Safety Transfer Attestations Time Spent in Transfer Care: less than 30 min Quality Metrics Clinical Quality Measures [ No reported AMI, CVA or VTE this stay] Coding Level of Care Code Acute Code for Chg Fwd Diagnoses Bipolar 1 disorder, depressed, mild F31.31 Alcohol use disorder, severe, dependence F10.20 Tachyarrhythmia R00.0 Suicidal ideations R45.851 Alcoholic intoxication F10.929 Elevated CPK R74.8 Renal insufficiency N28.9 Transaminitis R74.01 Metabolic acidosis E87.20 Heavy cigarette smoker F17.210 Chronic post-traumatic stress disorder F43.12 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
[2024-10-23] MEDS: OLANZapine 5 mg TABLET 7.5 MG PO (16:56)
[2024-10-23] MEDS: LORazepam 0.5 mg Tablet PO (16:56)
[2024-10-23] MEDS: CLONazepam 0.5 mg Tablet 1 MG PO (16:56)
--- NOTE | 2024-10-23 17:00 | PC.NURSE ---
Transfer Note Patient transferred to [facility] from [facility] via ground ambulance. Handoff report given to SHYAM Marie. Patient oriented to environment and equipment. Covering service notified. Orders reviewed and will continue to monitor. Upon transfer patient is confused, combative and verbally aggressive upon EMS arrival. This nurse called hospitalist who gave telephone orders to given one time dose of Ativan 0.5mg PO & admin 2100 dose of Zyprexa early. Please see MAR for further detail. All patient belongings including clothing, cell phone, wallet, and $645 dhillon in envelope sent with EMS.
== END 2024-10-23 17:00 | DRG 308 ==
LOC: ER 21:01 → ICU 21:10 → MEDSURG 10-21 15:26 → ICU 10-22
PROVIDERS: Family Medicine; Admitting Provider Internal Medicine; Emergency Provider Emergency Medicine; PCP Family Medicine; Visit Provider Internal Medicine
DX: R00.0 Tachycardia, unspecified (principal); J69.0 Pneumonitis due to inhalation of food and vomit; E87.20 Acidosis, unspecified; F31.31 Bipolar disorder, current episode depressed, mild; R45.851 Suicidal ideations; F10.231 Alcohol dependence with withdrawal delirium; N17.9 Acute kidney failure, unspecified; F10.259 Alcohol dependence with alcohol-induced psychotic disorder, unspecified; F17.210 Nicotine dependence, cigarettes, uncomplicated; F43.12 Post-traumatic stress disorder, chronic; Y90.7 Blood alcohol level of 200-239 mg/100 ml; N18.9 Chronic kidney disease, unspecified; F10.229 Alcohol dependence with intoxication, unspecified
CPT/HCPCS: 0241U; 36415; 71045; 80048; 80053; 80306; 80307; 81001; 82140; 82550; 83690; 83735; 84100; 84439; 84443; 85025; 87426; 87493; 92507; 92523; 92526; 92610; 93005; 93306; 94640; 96365; 96366; 96372; 96375; 96376; 99285; A4222; J0282; J0283; J1630; J1650; J1940; J2060; J2543; J2560; J3411; J3480; J3486; J3490; J7030